=== PATIENT | female | born 1995 | race Caucasian/White ===

== ENCOUNTER 2018-03-06 06:30 | Day surgery (SDC) | payer OTHER, SELFPAY ==
--- NOTE | 2018-03-05 17:30 | PCM.HP.BLA ---
History and Physical Date of Admission: 03/06/18 HISTORY OF PRESENT ILLNESS 22 year old woman presents with post-traumatic bilateral earlobe scar contour deformity that developed after wearing ear gauges for the last couple of years. The size she used was 19 mm. After removing them earlier in the year, there has been a slight decrease in the deformity but it is still persistent. There is mild discomfort when she bumps them. She denies any fever. She is getting later next year and would like her bilateral earlobe scar contour deformity improved as much as possible. She presents at this time for further evaluation and treatment. PAST MEDICAL HISTORY Frequent headaches. PAST SURGICAL HISTORY None. MEDICATIONS Norgestimate-Ethinyl Estradiol [Sprintec 28 Day Tablet]. ALLERGIES None. FAMILY HISTORY Unknown. Negative for skin cancer. SOCIAL HISTORY Smoking Status: Current every day smoker. Alcohol intake: Occasional. REVIEW OF SYSTEMS General - Denies fever, fatigue, and weight loss. Eyes - Denies cataracts and glaucoma. ENT - Denies nasal congestion and sore throat. Endocrine - Denies excessive thirst and urination. Skin - Denies suspicious lesions and skin cancer. On her bilateral earlobes are post-traumatic scar contour deformities. Musculoskeletal - Denies joint pain, joint stiffness, weakness of muscles and joints, back pain, and arthritis. Neuro - Denies headaches. Cardiovascular - Denies chest pain, fatigue, and shortness of breath with exertion. Psych - Denies anxiety and depression. Respiratory - Denies chronic cough and shortness of breath. Patient is a smoker. Gastrointestinal - Denies nausea, vomiting, diarrhea, and constipation. Hematologic - Denies abnormal bruising and bleeding. Genitourinary - Denies hematuria and urinary frequency. PHYSICAL EXAMINATION General - Alert and Oriented HEENT - PERRL. EOMI. Throat is clear. On her bilateral ears, there are post-traumatic earlobe scar contour deformities. The earlobe opening measures 0.8 x 0.5 cm bilaterally. There is no evidence of infection. There is mild discomfort when she bumps them. Neck - Supple and nontender. No cervical adenopathy. Lungs - Clear to auscultation. Heart - Regular rate and rhythm. Abdomen - Soft and nondistended. Extremities - FROM. No axillary adenopathy. Radial pulses are palpable. Neuro - CN II-XII grossly intact. Psych - Normal mood and affect. ASSESSMENT 1. Post-traumatic bilateral earlobe scar contour deformity. 2. History of earlobe gauge use. 3. Smoker. PLAN Recommend excision and repair of her post-traumatic bilateral earlobe scar contour deformity. Due to the large size of the defects, I anticipate the use of skin flaps and/or skin grafts for reconstruction. If local skin flaps are inadequate and healing is suboptimal, then revision surgery would necessitate a two stage post-auricular flap procedure and cartilage graft from the ear in the conchal area for support. The cartilage graft would be placed in a subcutaneous tunnel. After healing has occurred in 6 weeks, would proceed with the second stage procedure which is division and inset of the flap. The medial side of the earlobe would be skin grafted. Due to its being a bilateral procedure, I would recommend general anesthesia on an outpatient basis. I would not re-slater the scar for 6 months to minimize possible keloid formation. Tissue that is excised would be sent to Pathology for analysis to rule out carcinoma. Patient was informed of the risks and complications of the procedure including alternatives to surgery. These were discussed with the patient personally. Patient voices understanding and wishes to proceed. Some of the risks and complications were included in a form from the [employer]. Encouraged patient to stop smoking as it may have deleterious effects on wound healing. Patient is aware that her insurance carrier may not cover this procedure. If that is the case, she would be financially responsible for the surgery. She voices understanding and wishes to proceed.
--- NOTE | 2018-03-06 | MISC_PTH ---
PATIENT: CHANTE MELENDREZ [place] [facility] [id number] AGE/SX: 22/F ROOM: RE03/06/[address]: Dr. Robin Jean MD : 1995 BED: DIS: 03/06/2018 SPEC #: [id number] RECD: 03/06/18 14:28 STATUS: CAIN REHannah #: [id number] CALVIN: 03/06/18 00:[address]: Robin Jean DEPT: SURGICAL PATHOLOGY RECD BY: Martell Leung ENTERED: 03/06/18 14:29 SP TYPE: [facility] [place] ANU DR: Dr. Darrell Neumann MD Tissues: A - Ear, NOS B - Ear, NOS Procedures: Surgery Specimen Level III HEADER OPERATION: Excision and repair post-traumatic scar contour deformity PRE-OP DIAGNOSIS: Post-traumatic bilateral earlobe scar contour deformity TISSUE SUBMITTED: A - Left earlobe, B - Right earlobe MICROSCOPIC DIAGNOSIS A. Left earlobe, repair post-traumatic scar contour deformity: A piece of skin with reactive changes. B. Right earlobe, repair post-traumatic scar contour deformity: A piece of skin with reactive changes. SHEILA:tabitha 03/07/18 MICROSCOPIC DESCRIPTION Slides are reviewed. GROSS DESCRIPTION A - Received in fixative is one container labeled with the patient's name and designated left earlobe. The specimen consists of a weeks-white skin piece measuring 3 x 0.2 x 0.1 cm. The entire specimen is submitted in one cassette. B - Received in fixative is one container labeled with the patient's name and designated right earlobe. The specimen consists of a strip of weeks-white skin measuring 2.5 x 0.2 x 0.2 cm. The entire specimen is submitted in one cassette. / SHEILA:tabitha 03/06/18 TC:5 CPT: 88527 x2
[2018-03-06 06:58] LABS: Internal QC Validated? YES +Cl - CLEAR BKGD; Pregnancy, Urine Negative Negative
[2018-03-06 07:00] VITALS: BP 112/72; PULSE 75; RESP 16; TEMP 37.4; O2SAT 98; BMI 23.5
[2018-03-06] MEDS: Mupirocin Ointment 22gm Tube 1 APPLIC (07:03)
--- NOTE | 2018-03-06 11:04 | PCM.IMDPSTOP ---
Immediate Post-Op Note Date of Procedure: 03/06/18 Primary Surgeon/Physician: Robin Jean nursing informatics clinical analyst: None Pre-Operative Diagnosis: 1. Post-traumatic bilateral earlobe scar contour deformity. 2. History of earlobe gauge use. 3. Smoker. Post-Operative Diagnosis: Same. Surgery/Procedure Performed:: 1. Excision and repair post-traumatic scar contour deformity right earlobe with anterior rhomboid transposition skin flap (2 cm2) and posterior rhomboid transposition skin flap reconstruction (2 cm2). 2. Excision and repair post-traumatic scar contour deformity left earlobe with posterior rhomboid transposition skin flap reconstruction (2 cm2). Description of Surgical Findings:: 22 year old woman presents with post-traumatic bilateral earlobe scar contour deformity that developed after wearing ear gauges for the last couple of years. The size she used was 19 mm. After removing them earlier in the year, there has been a slight decrease in the deformity but it is still persistent. There is mild discomfort when she bumps them. She denies any fever. She is getting later next year and would like her bilateral earlobe scar contour deformity improved as much as possible. Today the patient underwent excision and repair post-traumatic scar contour deformity right earlobe with anterior rhomboid transposition skin flap (2 cm2) and posterior rhomboid transposition skin flap reconstruction (2 cm2) and excision and repair post-traumatic scar contour deformity left earlobe with posterior rhomboid transposition skin flap reconstruction (2 cm2). Estimated Blood Loss: 10 ml. Specimen's removed: 1. Right earlobe tissue to Pathology. 2. Left earlobe tissue to Pathology. Drains: None. Type of Anesthesia:: General - Admit VTE Documentation VTE Present on Admission: No VTE Mechan Device Prophylaxis: SCD's VTE Pharm Prophylaxis ordered?: No
--- NOTE | 2018-03-06 11:07 | OP.PN_ITS ---
Immediate Post-Op Note Date of Procedure: 03/06/18 Primary Surgeon/Physician: Robin Jean vest baster: None Pre-Operative Diagnosis: 1. Post-traumatic bilateral earlobe scar contour deformity. 2. History of earlobe gauge use. 3. Smoker. Post-Operative Diagnosis: Same. Surgery/Procedure Performed:: 1. Excision and repair post-traumatic scar contour deformity right earlobe with anterior rhomboid transposition skin flap (2 cm2) and posterior rhomboid transposition skin flap reconstruction (2 cm2). 2. Excision and repair post-traumatic scar contour deformity left earlobe with posterior rhomboid transposition skin flap reconstruction (2 cm2). Description of Surgical Findings:: 22 year old woman presents with post-traumatic bilateral earlobe scar contour deformity that developed after wearing ear gauges for the last couple of years. The size she used was 19 mm. After removing them earlier in the year, there has been a slight decrease in the deformity but it is still persistent. There is mild discomfort when she bumps them. She denies any fever. She is getting later next year and would like her bilateral earlobe scar contour deformity improved as much as possible. Today the patient underwent excision and repair post-traumatic scar contour deformity right earlobe with anterior rhomboid transposition skin flap (2 cm2) and posterior rhomboid transposition skin flap reconstruction (2 cm2) and excision and repair post-traumatic scar contour deformity left earlobe with posterior rhomboid transposition skin flap reconstruction (2 cm2). Estimated Blood Loss: 10 ml. Specimen's removed: 1. Right earlobe tissue to Pathology. 2. Left earlobe tissue to Pathology. Drains: None. Type of Anesthesia:: General - Admit VTE Documentation VTE Present on Admission: No VTE Mechan Device Prophylaxis: SCD's VTE Pharm Prophylaxis ordered?: No
[2018-03-06 11:10] VITALS: BP 112/72; BP 122/64; PULSE 114; RESP 16; TEMP 36.7; O2SAT 97
[2018-03-06 11:15] VITALS: BP 112/72; BP 121/61; PULSE 98; RESP 16; O2SAT 97
--- NOTE | 2018-03-06 11:15 | DCINST_ITS ---
You will use the following diet at home:: No restrictions Discharge Activity: May not drive while taking narcotic pain medications., May Shower - in two days., - - keep head elevated. no heavy lifting. May shower in (days): 2 May resume sexual activity in: 10-14 days Weight Bearing Status: Weight bearing as tolerated Lifting Restrictions: 10 lbs. Keep extremity elevated above heart level: - - elevate head. Call your doctor if your incision/area has: Continuous Slow Oozing, Sudden Increased Bleeding, Increased Pain/ Swelling, Increased Redness, Foul Smelling Discharge, Swelling at the incision site Call your doctor if you observe: Fever of 101 or Higher, Coldness, Increased Pain, Shortness of breath, Calf discomfort, Uncontrolled pain Suture Line Care: - - apply antibiotic ointment to suture line daily. Cleanse incision/area with: - - may get incisions wet in the shower in two days. Allergies/Adverse Reactions: Allergies No Known Allergies Allergy (Verified 02/26/18 09:03) Medications to take at Discharge Norgestimate-Ethinyl Estradiol [Sprintec 28 Day Tablet] 1 each PO DAILY 09/27/15 Clindamycin [Cleocin] 300 mg PO TID #30 cap 03/06/18 Oxycodone HCl/Acetaminophen [Percocet 5/325] 1 - 2 tab PO 4X/DAY PRN PRN 5 Days #40 tab 03/06/18 The following prescriptions were given: Oxycodone HCl/Acetaminophen [Percocet 5/325] 1 - 2 tab PO 4X/DAY PRN PRN 5 Days #40 tab PRN Reason: Pain Clindamycin [Cleocin] 300 mg PO TID #30 cap Primary Care Physician: Darrell Neumann MD [Primary Care Provider] - Test Results: Test results from this visit will be discussed in further detail at your follow- up appointment, if applicable. Please Follow Up With: Robin Jean MD When: one week. call [phone] for appt. Proposed Discharge Date: 03/06/18
[2018-03-06 11:30] VITALS: BP 112/64; BP 112/72; PULSE 94; RESP 16; O2SAT 98
[2018-03-06 11:43] VITALS: BP 106/67; BP 112/72; PULSE 94; RESP 16; TEMP 36.9; O2SAT 97
[2018-03-06 12:31] VITALS: BP 108/60; BP 112/72; PULSE 76; RESP 16; TEMP 37.8; O2SAT 97
--- NOTE | 2018-03-06 18:55 | PCM.OPRPT ---
Report of Operation Date of Procedure: 03/06/18 Pre-Operative Diagnosis: 1. Post-traumatic bilateral earlobe scar contour deformity. 2. History of earlobe gauge use. 3. Smoker. Post-Operative Diagnosis: Same. Surgery/Procedure Performed:: 1. Excision and repair post-traumatic scar contour deformity right earlobe with anterior rhomboid transposition skin flap (2 cm2) and posterior rhomboid transposition skin flap reconstruction (2 cm2). 2. Excision and repair post-traumatic scar contour deformity left earlobe with posterior rhomboid transposition skin flap reconstruction (2 cm2). Description of Surgical Findings:: 22 year old woman presents with post-traumatic bilateral earlobe scar contour deformity that developed after wearing ear gauges for the last couple of years. The size she used was 19 mm. After removing them earlier in the year, there has been a slight decrease in the deformity but it is still persistent. There is mild discomfort when she bumps them. She denies any fever. She is getting later next year and would like her bilateral earlobe scar contour deformity improved as much as possible. Patient was informed of the risks and complications of the procedure including alternatives to surgery. These were discussed with the patient personally. Patient voices understanding and wishes to proceed. Some of the risks and complications were included in a form from the [employer]. vegetable inspector: None Type of Anesthesia:: General Specimen's removed: 1. Right earlobe tissue to Pathology. 2. Left earlobe tissue to Pathology. Drains: None. Estimated Blood Loss (mL): 10 ml. Description of Procedure: Patient was taken to OR in supine position and was placed under general anesthesia. The ears were prepped and draped in the usual fashion separately. SCD's were placed for DVT prophylaxis. Perioperative antibiotics were given intravenously. I worked on the left ear first. Using xylocaine with epinephrine, the periauricular area was infiltrated for postop pain relief. I excised the circular scar contour deformity into the subcutaneous tissue. The tissue was sent to Pathology for analysis. This created an anterior and a posterior wound. Enough laxity was present anteriorly that I was able to close the anterior defect primarily. Good earlobe contour was noted anteriorly. A 5-0 Monocryl suture was used for the deep dermis and subcutaneous tissue. The skin was approximated with 5-0 Monocryl simple interrupted and vertical mattress interrupted sutures. I then addressed the posterior defect. When I attempted to close the posterior defect as well primarily, there was noticeable deformity. I then designed a rhomboid flap superior to the defect in order to bring in tissue to the defect to minimize the deformity. Incisions were made and the rhomboid flap was elevated on a subcutaneous pedicle and easily transposed into the posterior defect with minimal tension and minimal distortion. Hemostasis was obtained with electrocautery. I then closed the posterior wound after transposing the rhomboid flap into the defect with 5-0 Monocryl interrupted sutures. Good earlobe contour was noted after the flap was inset. The size of the defect and the size of the flap needed to close the defect was 2 cm2. A dry gauze was placed on the left earlobe for compression for the rest of the procedure since her head will be turned in the opposite direction to work on the right ear. The right ear was then prepped and draped in the usual fashion. Using xylocaine with epinephrine, the periauricular area was infiltrated for postop pain relief. I excised the circular scar contour deformity into the subcutaneous tissue. The tissue was sent to Pathology for analysis. This created an anterior and a posterior wound. Enough laxity was present anteriorly that I was able to close the anterior defect primarily. Good earlobe contour was noted anteriorly. A 5-0 Monocryl suture was used for the deep dermis and subcutaneous tissue. The skin was approximated with 5-0 Monocryl simple interrupted and vertical mattress interrupted sutures. I then addressed the posterior defect. When I attempted to close the posterior defect as well primarily, there was noticeable deformity. I then designed a rhomboid flap superior to the defect in order to bring in tissue to the defect to minimize the deformity. Incisions were made and the rhomboid flap was elevated on a subcutaneous pedicle and easily transposed into the posterior defect with minimal tension and minimal distortion. Hemostasis was obtained with electrocautery. I then closed the posterior wound after transposing the rhomboid flap into the defect with 5-0 Monocryl interrupted sutures. After the inset of the rhomboid flap posteriorly, there was a noticeable earlobe deformity with a boxy appearance. Even though the anterior wound closure initially didn't show any earlobe deformity, after closing the posterior wound defect, this boxy deformity became apparent. Therefore I removed the sutures from the anterior wound and felt another flap would be necessary to bring in tissue to the defect to minimize the deformity. I then designed an anterior rhomboid flap superior to the defect in order to bring in tissue to the defect to minimize the deformity. Incisions were made and the rhomboid flap was elevated on a subcutaneous pedicle and easily transposed into the anterior defect with minimal tension and minimal distortion. Hemostasis was obtained with electrocautery. I then closed the anterior wound after transposing the rhomboid flap into the defect with 5-0 Monocryl interrupted sutures. Good earlobe contour was noted after the flap was inset. The size of the defects and the size of the flaps needed to close the anterior and posterior defects were 2 cm2 each. I then placed her head in the neutral position and looked at both earlobes. Good earlobe contour was noted bilaterally. No hematomas were noted. No vascular compromise was noted on the skin flaps. Antibiotic ointment was applied to both earlobe incisions. Initially no dressing was placed. However while transferring her to the PACU cart, she was moving her head from side to side and smearing the antibiotic ointment. Therefore in the PACU, I reapplied antibiotic ointment to the incisions and placed a gauze dressing on the ears. Patient tolerated the procedure well and was sent to PACU in satisfactory condition. Patient will be sent home on antibiotics and pain medication. She will keep her head elevated during the initial postop period. She will be instructed not to slater the healing scars for 6 months. Patient will followup in a week for a wound check and for discussion of the pathology report. Grafts/Implants Used: None. - Complications None. - Admit VTE Documentation VTE Present on Admission: No VTE Mechan Device Prophylaxis: SCD's VTE Pharm Prophylaxis ordered?: No Code Visit Surgery Charges CPT - 62695 ICD-10 - T75.89xS, S01.90xS, F17.200 79188 T75.89xS, S01.90xS, F17.200 90322 T75.89xS, S01.90xS, F17.200 21102-18 T75.89xS, S01.90xS, F17.200 42830-40 T75.89xS, S01.90xS, F17.200
--- NOTE | 2018-03-07 17:55 | OP.PCM_ITS ---
Report of Operation Date of Procedure: 03/06/18 Pre-Operative Diagnosis: 1. Post-traumatic bilateral earlobe scar contour deformity. 2. History of earlobe gauge use. 3. Smoker. Post-Operative Diagnosis: Same. Surgery/Procedure Performed:: 1. Excision and repair post-traumatic scar contour deformity right earlobe with anterior rhomboid transposition skin flap (2 cm2) and posterior rhomboid transposition skin flap reconstruction (2 cm2). 2. Excision and repair post-traumatic scar contour deformity left earlobe with posterior rhomboid transposition skin flap reconstruction (2 cm2). Description of Surgical Findings:: 22 year old woman presents with post-traumatic bilateral earlobe scar contour deformity that developed after wearing ear gauges for the last couple of years. The size she used was 19 mm. After removing them earlier in the year, there has been a slight decrease in the deformity but it is still persistent. There is mild discomfort when she bumps them. She denies any fever. She is getting later next year and would like her bilateral earlobe scar contour deformity improved as much as possible. Patient was informed of the risks and complications of the procedure including alternatives to surgery. These were discussed with the patient personally. Patient voices understanding and wishes to proceed. Some of the risks and complications were included in a form from the [employer]. milk pasteurizer: None Type of Anesthesia:: General Specimen's removed: 1. Right earlobe tissue to Pathology. 2. Left earlobe tissue to Pathology. Drains: None. Estimated Blood Loss (mL): 10 ml. Description of Procedure: Patient was taken to OR in supine position and was placed under general anesthesia. The ears were prepped and draped in the usual fashion separately. SCD's were placed for DVT prophylaxis. Perioperative antibiotics were given intravenously. I worked on the left ear first. Using xylocaine with epinephrine, the periauricular area was infiltrated for postop pain relief. I excised the circular scar contour deformity into the subcutaneous tissue. The tissue was sent to Pathology for analysis. This created an anterior and a posterior wound. Enough laxity was present anteriorly that I was able to close the anterior defect primarily. Good earlobe contour was noted anteriorly. A 5- 0 Monocryl suture was used for the deep dermis and subcutaneous tissue. The skin was approximated with 5-0 Monocryl simple interrupted and vertical mattress interrupted sutures. I then addressed the posterior defect. When I attempted to close the posterior defect as well primarily, there was noticeable deformity. I then designed a rhomboid flap superior to the defect in order to bring in tissue to the defect to minimize the deformity. Incisions were made and the rhomboid flap was elevated on a subcutaneous pedicle and easily transposed into the posterior defect with minimal tension and minimal distortion. Hemostasis was obtained with electrocautery. I then closed the posterior wound after transposing the rhomboid flap into the defect with 5-0 Monocryl interrupted sutures. Good earlobe contour was noted after the flap was inset. The size of the defect and the size of the flap needed to close the defect was 2 cm2. A dry gauze was placed on the left earlobe for compression for the rest of the procedure since her head will be turned in the opposite direction to work on the right ear. The right ear was then prepped and draped in the usual fashion. Using xylocaine with epinephrine, the periauricular area was infiltrated for postop pain relief. I excised the circular scar contour deformity into the subcutaneous tissue. The tissue was sent to Pathology for analysis. This created an anterior and a posterior wound. Enough laxity was present anteriorly that I was able to close the anterior defect primarily. Good earlobe contour was noted anteriorly. A 5-0 Monocryl suture was used for the deep dermis and subcutaneous tissue. The skin was approximated with 5-0 Monocryl simple interrupted and vertical mattress interrupted sutures. I then addressed the posterior defect. When I attempted to close the posterior defect as well primarily, there was noticeable deformity. I then designed a rhomboid flap superior to the defect in order to bring in tissue to the defect to minimize the deformity. Incisions were made and the rhomboid flap was elevated on a subcutaneous pedicle and easily transposed into the posterior defect with minimal tension and minimal distortion. Hemostasis was obtained with electrocautery. I then closed the posterior wound after transposing the rhomboid flap into the defect with 5-0 Monocryl interrupted sutures. After the inset of the rhomboid flap posteriorly, there was a noticeable earlobe deformity with a boxy appearance. Even though the anterior wound closure initially didn't show any earlobe deformity, after closing the posterior wound defect, this boxy deformity became apparent. Therefore I removed the sutures from the anterior wound and felt another flap would be necessary to bring in tissue to the defect to minimize the deformity. I then designed an anterior rhomboid flap superior to the defect in order to bring in tissue to the defect to minimize the deformity. Incisions were made and the rhomboid flap was elevated on a subcutaneous pedicle and easily transposed into the anterior defect with minimal tension and minimal distortion. Hemostasis was obtained with electrocautery. I then closed the anterior wound after transposing the rhomboid flap into the defect with 5-0 Monocryl interrupted sutures. Good earlobe contour was noted after the flap was inset. The size of the defects and the size of the flaps needed to close the anterior and posterior defects were 2 cm2 each. I then placed her head in the neutral position and looked at both earlobes. Good earlobe contour was noted bilaterally. No hematomas were noted. No vascular compromise was noted on the skin flaps. Antibiotic ointment was applied to both earlobe incisions. Initially no dressing was placed. However while transferring her to the PACU cart, she was moving her head from side to side and smearing the antibiotic ointment. Therefore in the PACU, I reapplied antibiotic ointment to the incisions and placed a gauze dressing on the ears. Patient tolerated the procedure well and was sent to PACU in satisfactory condition. Patient will be sent home on antibiotics and pain medication. She will keep her head elevated during the initial postop period. She will be instructed not to slater the healing scars for 6 months. Patient will followup in a week for a wound check and for discussion of the pathology report. Grafts/Implants Used: None. - Complications None. - Admit VTE Documentation VTE Present on Admission: No VTE Mechan Device Prophylaxis: SCD's VTE Pharm Prophylaxis ordered?: No Code Visit Surgery Charges CPT - 85862 ICD-10 - T75.89xS, S01.90xS, F17.200 44383 T75.89xS, S01.90xS, F17.200 56326 T75.89xS, S01.90xS, F17.200 90098-74 T75.89xS, S01.90xS, F17.200 16330-72 T75.89xS, S01.90xS, F17.200
== END 2018-03-06 12:35 | disposition home or self-care (01) ==
LOC: SDC 06:31 → AC 06:32
PROVIDERS: Anesthesiology; Family Provider Family Medicine; PCP Family Medicine; Referring Provider Surgery; Visit Provider Surgery
PROC: (CPT 14060; principal; 2018-03-06 07:45)
DX: H61.113 Acquired deformity of pinna, bilateral (principal); F17.200 Nicotine dependence, unspecified, uncomplicated
CPT/HCPCS: 14060; 81025; 88304; 88305; J7120; J2405

== ENCOUNTER → 2020-04-18 16:53 | Outpatient (CLI) | payer OTHER, SELFPAY ==
[2018-04-09 09:20] VITALS: BMI 23.5
[2020-04-18 18:20] LABS: Hematocrit 42.6 % (37-47); Hemoglobin 14.8 g/dL (12.0-15.0); Mean Corp Hgb Conc 34.7 g/dL (32-36); Mean Corpuscular Hgb 31.4 pg (27.0-32.0); Mean Corpuscular Volume 90.4 fL (81-99); Mean Platelet Vol. 9.9 fl (6.2-12.0); Platelet Count 315 K/mm3 (150-450); RBC Distribution Width SD 39.8 fl (35.1-43.9); Red Blood Count 4.71 M/mm3 (4.2-5.4)
[2020-04-18 18:29] LABS: D-Dimer Quantitative (DVT/PE) 0.32 FEU/ug/m (0.27-0.49)
[2020-04-18 18:43] LABS: Anion Gap 6 (5-15); BUN 11 mg/dL (7-18); BUN/Creat Ratio 13.3 RATIO (10-20); Calcium,Total 9.2 mg/dL (8.5-10.1); Chloride 108 mmol/L (98-107); Creatinine, Serum 0.83 mg/dL (0.55-1.02); EST Glomerular Filtration Rate 89 mL/min (>60); Est Glom Filt Rate - Afr Amer 108 mL/min (>60); Glucose 77 mg/dL (74-106); Potassium 3.3 mmol/L (3.5-5.1); Sodium Level 142 mmol/L (136-145)
== END ==
PROVIDERS: PCP Family Medicine; Visit Provider Nurse Practitioner Family
DX: R07.9 Chest pain, unspecified (principal)
CPT/HCPCS: 36415; 80048; 85027; 85379

== ENCOUNTER 2022-04-11 16:55 | Outpatient (CLI) | payer BC, SELFPAY ==
[2022-04-11 17:54] LABS: Absolute Lymphocyte Count 2.31 X10^3/uL (0.83-4.51); Absolute Neutrophil Count 3.4 X10^3/uL (2.0-7.7); Basophil# 0.06 X10^3/uL; Basophil% 0.9 % (0-1); Eosinophil# 0.09 X10^3/uL; Eosinophils% 1.4 % (0-5); Hemoglobin 13.5 g/dL (12.0-15.0); Lymphocyte # 2.31 X10^3/ul (0.83-4.51); Lymphocyte % 36.4 % (19-41); Mean Corp Hgb Conc 33.8 g/dL (32-36); Mean Corpuscular Hgb 32.1 pg (27.0-32.0); Mean Platelet Vol. 9.6 fl (6.2-12.0); Monocyte# 0.46 X10^3/uL; Monocyte% 7.2 % (0-10); NRBC Flagged by Analyzer 0 % (0-5); Neutrophil # 3.41 X10^3/uL (2.7-7.7); Neutrophil % 53.8 % (47-70); Platelet Count 295 K/mm3 (150-450); RBC Distribution Width CV 11.9 % (11.6-14.6); RBC Distribution Width SD 41.8 fl (35.1-43.9); Red Blood Count 4.21 M/mm3 (4.2-5.4); White Blood Count 6.4 K/mm3 (4.4-11.0)
[2022-04-11 18:46] LABS: ALB/GLOB Ratio 1.2 RATIO (0.9-2.4); AST(SGOT) 10 U/L (15-37); Alanine Aminotransfer ALT/SGPT 15 U/L (13-56); Albumin, Serum 3.7 g/dL (3.2-5.0); Alkaline Phosphatase 51 U/L (45-117); Anion Gap 5 (5-15); BUN 10 mg/dL (7-18); BUN/Creat Ratio 15.1 RATIO (10-20); Chloride 108 mmol/L (98-107); Creatinine, Serum 0.66 mg/dL (0.55-1.02); EST Glomerular Filtration Rate 113 mL/min (>60); Est Glom Filt Rate - Afr Amer 137 mL/min (>60); Globulin 3.2 g/dL (2.2-4.2); Glucose 87 mg/dL (74-106); Protein, Total 6.9 g/dL (6.4-8.2); Sodium Level 139 mmol/L (136-145); Thyroid Stim Hormone (TSH) 0.67 uIU/mL (0.358-3.74)
== END 2022-04-11 23:59 | disposition home or self-care (01) ==
LOC: MFPLAB 16:59
PROVIDERS: PCP Nurse Practitioner Family; Visit Provider Nurse Practitioner Family
DX: R63.4 Abnormal weight loss (principal)
CPT/HCPCS: 36415; 80053; 84443; 85025

== ENCOUNTER 2022-09-24 08:41 | Emergency (ER) | payer BC, SELFPAY ==
[2022-09-24 08:41] VITALS: BP 133/91; PULSE 65; RESP 22; TEMP 35.7; O2SAT 99; BMI 23.3
--- NOTE | 2022-09-24 08:53 | NURSING ---
NO OLD EKG
--- NOTE | 2022-09-24 08:57 | EX.ED.DYSGE1 ---
HPI History of Present Illness Chief Complaint: Dizziness Informant: patient Onset/Context/Timing Onset: Today Context: Gradual Onset Timing: Intermittent Current Severity: Gone Maximum Severity: Mild Narrative Narrative: 26-year-old female with anxiety. An episode today where she felt lightheaded and dizzy. Denies any headache or chest pain. She did not pass out. She has not eaten since 8:00 last night. After she started having the symptoms she had an Oreo cookie granola bar and had something to drink. Really did not change her symptoms. She had a prior episode a week ago. Was not evaluated for this before. Last menstrual period was about a week ago. She denies any nausea, vomiting, diarrhea or fever. No chest pain or abdominal pain. No melena. Currently is feeling improved. Prior similar symptoms: Yes Recent Illness/Hospitalization: No PFSH PFSH Medical History Abdominal pain Abnormal weight loss Allergic rhinitis Anxiety and depression Chest pain Fatigue Frequent headaches Headache Hypokalemia Paresthesia Rectal bleeding Home Medications NK 09/24/22 [History Last Taken Unknown] Allergy/AdvReac Type Severity Reaction Status Date / Time No Known Allergies Allergy Verified 04/18/22 09:21 Family History Unknown No problems noted. Father Hypertension Social History Smoking Status: Current every day smoker tobacco type: e-cigarettes ROS ROS ED ROS Narrative Denies recent illness. Review of Systems ROS Unobtainable: Denies due to encephalopathy Constitutional Constitutional ED: Denies chills or fever(s) Eyes Eyes: Denies blurry vision ENT ENT ED: Denies ear pain Cardiovascular Cardiovascular: Denies chest pain Respiratory/Chest Respiratory/Chest: Denies cough Gastrointestinal Gastrointestinal: Denies abdominal pain Musculoskeletal Musculoskeletal: Denies arthralgias Integumentary Denies abscess Neurologic Neurologic: Denies headache(s) Psychiatric Psychiatric: Denies anxiety Endocrine Endocrinology: Denies cold intolerance Hematologic/Lymphatic Hematologic/Lymphatic: Reports none Allergic/Immunologic Allergic/Immunologic ED: Denies mouth swelling or tongue swelling EXAM Physical Exam Narrative Exam Narrative: 26-year-old female sitting upright in bed. Mom present in room. Vital signs stable afebrile. Pulse ox 99% room air no hypoxia. She does not seem septic toxic or in any distress currently. H EENT exam unremarkable. Pupils round reactive light his motions are intact. No facial droop. TMs normal. Normal speech. Neck nontender no lymphadenopathy. Lungs clear to auscultation. Heart regular rhythm rate about 70 no murmur. Normal sinus rhythm on the monitor. Abdomen soft nontender normal bowel sounds no peritoneal signs. Moving all 4 extremities. Nontender no edema. Normal 5 out of 5 staker surveying strength. Dorsi plantarflexion intact. Back exam unremarkable. Skin normal several tattoos. No rashes. Neurologically she is awake and alert. No focal motor or sensory deficits. Normal staker surveying strength. Normal dorsi plantarflexion. No drift. Fingertip to nose within normal limits. [id number] within normal limits. NIH 0. Patient has a completely normal exam. Currently symptom-free. Const Vital Signs: 09/24/22 08:41 09/24/22 08:50 Temperature 96.3 F L Temperature Source Temporal Pulse Rate 65 Respiratory Rate 22 H Respiratory Effort Normal Non-Labored Respiratory Pattern Normal Blood Pressure 133/91 H Blood Pressure Mean 105 Pulse Ox 99 Oxygen Delivery Method Room Air Positive well nourished and well developed; Negative for obese, cachectic, contractures or unkempt General Appearance ED: well developed and NAD; Negative for unkempt, cachectic, contractures, cyanotic, diaphoretic or pallor Nutritional Appearance: Negative for cachectic or obese HEENT Reports TM's clear and moist mucous membranes; Denies dry mucous membranes Negative for trauma or tenderness Tympanic Membrane ED: Yes TM's clear Mouth ED: No dry mucous membranes Mouth: No dry mucous membranes Eyes PERRL and EOMs intact bilaterally General Eye ED: Negative for pale conjunctiva, scleral icterus or other Neck no lymphadenopathy, supple and no JVD General: Negative for tenderness Lymph Lymphatic: Negative for other Chest Wall inspection of chest normal and palpation of chest normal Chest: Negative for other Resp normal respiratory effort and clear to auscultation bilaterally Effort and Inspection: Negative for retractions Auscultation: Negative for rales, rhonchi or wheezes Cardio regular rate, regular rhythm, S1 normal heart sound, S2 normal heart sound and no murmurs Rhythm: Negative for abnormal rhythm GI normal to inspection, nondistended, normoactive bowel sounds, non-tender, non-distended and no masses Inspection: Negative for abdominal distention Auscultation: normoactive bowel sounds Palpation: soft; Negative for tender or guarding Back/Spine no CVA tenderness General Back: Negative for CVA tenderness Cervical Spine: Negative for cervical spine tenderness Thoracic Spine / Upper Back: Negative for thoracic spinal tenderness Lumbar Spine / Lower Back: Negative for lumbar spinal tenderness Extremity normal to inspection General Extremety ED: Negative for edema or tenderness General Extremity: Negative for edema Neuro oriented x3, CN's II-XII intact bilaterally and no sensory deficits noted Sensorium / Orientation: alert; Negative for orientation impaired, lethargic or stuporous Sensory Exam: No sensory level loss detected Motor Exam: strength 5/5 throughout Psych mental status grossly normal Appearance: Negative for unkempt Attitude: No agitated Mood & Affect: Negative for depressed, anxious or tearful Skin no rashes or lesions noted, no wounds and skin turgor normal General Skin Exam: elasticity normal; Negative for jaundice or pallor Lesions: No lesion noted Rashes: No rashes noted Trauma: Negative for abrasion Wounds: Negative for wounds noted MDM MDM MDM Narrative Medical decision making narrative: 26-year-old female with an episode where she felt dizzy. Symptoms have resolved. Currently she is a comp repeat exam at 9:40 AM patient doing well. Patient has a normal exam and is symptom-free. She had not eaten since 8:00 last night but has now eaten since the symptoms started. I will check screening labs. She has a completely normal neurologic exam. She has not been having headaches. I do not think she needs imaging. Repeat exam at 9:40 AM patient doing well. Exam normal and unchanged. We went over her test results. She will be discharged to home. Lab Data Attestation: I reviewed the patient's lab results. Lab results narrative: CBC normal. White count of 5. H&H of 14 and 41. Platelets 257. Chemistries unremarkable gap of 6. Normal BUN and creatinine 11 and 0.8. Glucose 81. Labs: Laboratory Results - last 24 hr 09/24/22 09/24/22 09/24/22 09:00 09:00 09:03 WBC 5.2 RBC 4.54 Hgb 14.5 Hct 41.8 MCV 92.1 MCH 31.9 MCHC 34.7 RDW Std Deviation 39.8 RDW Coeff of Kwasi 11.8 Plt Count 257 MPV 9.3 Immature Gran % (Auto) 0.400 Neut % (Auto) 62.4 Lymph % (Auto) 28.8 [place] % (Auto) 6.6 Eos % (Auto) 1.0 Baso % (Auto) 0.8 Absolute Neuts (auto) 3.2 Absolute Lymphs (auto) 1.49 Nucleated RBC % 0 Sodium 140 Potassium 4.1 Chloride 110 H Carbon Dioxide 24.0 Anion Gap 6 BUN 11 Creatinine 0.83 Estim Creat Clear Calc 91.61 Est GFR (MDRD) Af Amer 105 Est GFR (MDRD) Non-Af 87 BUN/Creatinine Ratio 13.2 Glucose 81 Calcium 9.4 POC Glucose 91 Discharge Plan Triage Chief Complaint: Dizziness ED Provider: Reji Gardner Dx/Rx/DC Orders Clinical Impression: Dizziness Instructions: ED Dizziness, Uncertain Cause Prescriptions: No Action NK Primary Care Provider: Brisa Hodge Referrals: Nadeen Love [facility]ACH[facility] [employer]OOKKEEPER-[facility] [Non-Staff -Ordering Privileges] - 3-5 Days Activity Restrictions/Additional Instructions: Your exam and labs were all unremarkable. Normal blood sugar. Follow-up with your primary care provider or return if feeling worse. Disposition Disposition: Home, Self Care
[2022-09-24 09:18] LABS: Absolute Lymphocyte Count 1.49 X10^3/uL (0.83-4.51); Absolute Neutrophil Count 3.2 X10^3/uL (2.0-7.7); Basophil# 0.04 X10^3/uL; Basophil% 0.8 % (0-1); Eosinophil# 0.05 X10^3/uL; Hematocrit 41.8 % (37-47); Hemoglobin 14.5 g/dL (12.0-15.0); Lymphocyte # 1.49 X10^3/ul (0.83-4.51); Lymphocyte % 28.8 % (19-41); Mean Corp Hgb Conc 34.7 g/dL (32-36); Mean Corpuscular Hgb 31.9 pg (27.0-32.0); Mean Corpuscular Volume 92.1 fL (81-99); Mean Platelet Vol. 9.3 fl (6.2-12.0); Monocyte# 0.34 X10^3/uL; Monocyte% 6.6 % (0-10); NRBC Flagged by Analyzer 0 % (0-5); Neutrophil # 3.24 X10^3/uL (2.7-7.7); Neutrophil % 62.4 % (47-70); Platelet Count 257 K/mm3 (150-450); RBC Distribution Width CV 11.8 % (11.6-14.6); RBC Distribution Width SD 39.8 fl (35.1-43.9); Red Blood Count 4.54 M/mm3 (4.2-5.4); White Blood Count 5.2 K/mm3 (4.4-11.0)
[2022-09-24 09:21] LABS: Bedside Glucose 91 mg/dL (74-106)
[2022-09-24 09:33] LABS: Anion Gap 6 (5-15); BUN 11 mg/dL (7-18); BUN/Creat Ratio 13.2 RATIO (10-20); Calcium,Total 9.4 mg/dL (8.5-10.1); Chloride 110 mmol/L (98-107); Creatinine, Serum 0.83 mg/dL (0.55-1.02); EST Glomerular Filtration Rate 87 mL/min (>60); Est Glom Filt Rate - Afr Amer 105 mL/min (>60); Estimated Creatinine Clearance 91.61 ml/min; Glucose 81 mg/dL (74-106); Potassium 4.1 mmol/L (3.5-5.1); Sodium Level 140 mmol/L (136-145)
[2022-09-24 17:08] LABS: Thyroid Stim Hormone (TSH) 0.74 uIU/mL (0.358-3.74)
[2022-09-24 17:11] LABS: Vitamin B12 269 pg/mL (211-911)
== END 2022-09-24 10:11 | disposition home or self-care (01) ==
PROVIDERS: Nurse Practitioner Family; Emergency Provider Emergency Medicine; PCP Family Medicine; Visit Provider Emergency Medicine
DX: R42 Dizziness and giddiness (principal); F17.290 Nicotine dependence, other tobacco product, uncomplicated
CPT/HCPCS: 80048; 82306; 82607; 82962; 84443; 85025; 99284; J7030; A4216

== ENCOUNTER → 2022-10-29 | Outpatient (CLI) | payer BC, SELFPAY ==
[2022-10-29 10:15] LABS: Absolute Lymphocyte Count 1.73 X10^3/uL (0.83-4.51); Absolute Neutrophil Count 3.2 X10^3/uL (2.0-7.7); Basophil# 0.05 X10^3/uL; Basophil% 0.9 % (0-1); Eosinophil# 0.11 X10^3/uL; Hematocrit 40.6 % (37-47); Hemoglobin 13.6 g/dL (12.0-15.0); Lymphocyte # 1.73 X10^3/ul (0.83-4.51); Lymphocyte % 31.5 % (19-41); Mean Corp Hgb Conc 33.5 g/dL (32-36); Mean Corpuscular Hgb 31.6 pg (27.0-32.0); Mean Corpuscular Volume 94.2 fL (81-99); Mean Platelet Vol. 9.9 fl (6.2-12.0); Monocyte# 0.37 X10^3/uL; Monocyte% 6.7 % (0-10); NRBC Flagged by Analyzer 0 % (0-5); Neutrophil # 3.23 X10^3/uL (2.7-7.7); Neutrophil % 58.7 % (47-70); Platelet Count 240 K/mm3 (150-450); RBC Distribution Width CV 12.1 % (11.6-14.6); Red Blood Count 4.31 M/mm3 (4.2-5.4); White Blood Count 5.5 K/mm3 (4.4-11.0)
== END | disposition home or self-care (01) ==
LOC: MTLAB 07:14
PROVIDERS: PCP Family Medicine; Referring Provider Family Medicine; Visit Provider Family Medicine
DX: R42 Dizziness and giddiness (principal)
CPT/HCPCS: 36415; 82533; 85025

== ENCOUNTER → 2023-06-21 | Outpatient (CLI) | payer BC, SELFPAY ==
--- NOTE | 2023-06-21 17:53 | CT_ITS ---
STUDY: CT ABDOMEN AND PELVIS WITH CONTRAST REASON FOR EXAM: Female, 27 years old. RLQ PAIN X 1 WEEK RADIATION DOSAGE (If Supplied By Facility): CTDIvol = ( 10.29 ) mGy, DLP = ( 552.58 ) mGycm TECHNIQUE: Transaxial images were obtained from the dome of the diaphragm to the symphysis pubis without oral contrast. Oral and amp; IV Gastrografin and amp; 100mL Isovue-370 was administered. Sagittal and coronal images were reconstructed. Individualized dose optimization techniques were used for this CT. COMPARISON: None. FINDINGS: The visualized lung bases are unremarkable. The visualized portions of the heart are within normal limits. Normal liver. Normal gallbladder and extrahepatic biliary system. Normal spleen. Normal pancreas. Normal bilateral adrenal glands. Normal right kidney. Normal left kidney. Normal visualized stomach. Normal small intestine. Normal colon. The appendix is retrocecal in location and does not fill with contrast. There is no appreciable thickening of the wall however there is very subtle haziness in the periappendiceal fat and mild acute sinusitis is not excluded. Clinical correlation is recommended Normal abdominal aorta. Normal inferior vena cava. Normal retroperitoneum. Normal urinary bladder. Mild cystic changes in the right ovary not atypical for age. This may be further assessed with pelvic sonography if indicated. Normal abdominal wall. Normal osseous structures. CT/Abdomen/Pelvis WITH Contrast IMPRESSION: Nonfilling of the retrocecal appendix which demonstrate very subtle hazy appearance in the periappendiceal fat possibly representing mild acute appendicitis. Clinical correlation recommended Electronically Signed: Kaveh Natarajan MD at 19:30 EDT ,
== END | disposition home or self-care (01) ==
PROVIDERS: PCP Family Medicine; Referring Provider Family Medicine; Visit Provider Family Medicine
DX: R10.31 Right lower quadrant pain (principal)
CPT/HCPCS: 74177; Q9967

== ENCOUNTER → 2024-05-29 | Outpatient (CLI) | payer BC, SELFPAY ==
[2024-05-29 15:38] LABS: Absolute Lymphocyte Count 1.68 X10^3/uL (0.83-4.51); Absolute Neutrophil Count 4.9 X10^3/uL (2.0-7.7); Basophil# 0.07 X10^3/uL; Eosinophil# 0.05 X10^3/uL; Eosinophils% 0.7 % (0-5); Hematocrit 41.2 % (37-47); Lymphocyte # 1.68 X10^3/ul (0.83-4.51); Lymphocyte % 23.6 % (19-41); Mean Corpuscular Hgb 32.8 pg (27.0-32.0); Mean Corpuscular Volume 96.5 fL (81-99); Mean Platelet Vol. 9.9 fl (6.2-12.0); Monocyte% 5.6 % (0-10); NRBC Flagged by Analyzer 0 % (0-5); Neutrophil # 4.89 X10^3/uL (2.7-7.7); Neutrophil % 68.8 % (47-70); Platelet Count 303 K/mm3 (150-450); RBC Distribution Width CV 12.3 % (11.6-14.6); RBC Distribution Width SD 43.5 fl (35.1-43.9); Red Blood Count 4.27 M/mm3 (4.2-5.4); White Blood Count 7.1 K/mm3 (4.4-11.0)
[2024-05-29 16:05] LABS: ALB/GLOB Ratio 1.6 RATIO (0.9-2.4); AST(SGOT) 21 U/L (<=31); Alanine Aminotransfer ALT/SGPT 18 U/L (<=34); Albumin, Serum 4.2 g/dL (3.5-5.0); Alkaline Phosphatase 63 U/L (35-104); Anion Gap 14 (5-15); BUN 11 mg/dL (4-19); BUN/Creat Ratio 13.1 RATIO (10-20); Calcium 9.5 mg/dL (7.6-11.0); Carbon Dioxide 24.4 mmol/L (22.0-29.0); Chloride 101 mmol/L (96-108); Creatinine, Serum 0.83 mg/dL (0.70-1.20); EST Glomerular Filtration Rate 98 (>60); Globulin 2.7 g/dL (2.2-4.2); Glucose 85 mg/dL (70-99); Potassium 3.9 mmol/L (3.3-5.1); Protein, Total 6.9 g/dL (5.9-8.4); Sodium Level 140 mmol/L (133-145); Thyroid Stim Hormone (TSH) 0.651 uIU/mL (0.300-4.200); Total Bilirubin 0.24 mg/dL (0.00-1.30); Vitamin D,25 Hydroxy 70.6 ng/mL (30-100)
== END | disposition home or self-care (01) ==
LOC: MFPLAB 11:37
PROVIDERS: PCP Family Medicine; Referring Provider Family Medicine; Visit Provider Family Medicine
DX: R53.83 Other fatigue (principal)
CPT/HCPCS: 36415; 80053; 82306; 84439; 84443; 85025

== ENCOUNTER 2024-06-10 08:27 | Emergency (ER) | payer BC, SELFPAY ==
[2024-06-10 08:28] VITALS: BP 134/79; PULSE 68; RESP 15; TEMP 36.7; O2SAT 100; BMI 22.4
--- NOTE | 2024-06-10 08:53 | EX.ED.DYSGE1 ---
HPI History of Present Illness Chief Complaint: Anxiety Narrative Narrative: Chief complaint and HPI: Anxiety and episodic panic attacks. 28-year-old female with past medical history of anxiety and depression presents for evaluation of anxiety and episodic panic attacks. Patient states that she has been having increase anxiety. She states she was started on fluoxetine as well as hydroxyzine approximately 4 weeks ago for her symptoms. Patient states she is still having intermittent anxiety as well as panic attacks. Panic attacks are random and not specifically related to an incident or event. She has noticed that her anxiety is worse while driving. She denies any tearfulness, depression, suicidal ideation, homicidal ideation, visual or auditory hallucinations. Patient states that her anxiety and episodic panic attacks are causing difficulty with work. She does not follow with a psychiatrist. Patient states she had a panic attack earlier this morning in which she took hydroxyzine. She denies any fever, chills, shortness of breath, chest pain, abdominal pain, nausea, vomiting. States while driving she has been having intermittent and ear popping but no pain. Review of systems: See HPI Medications: As listed on the chart Allergies: As listed on the chart PFSH: Per chart Vital signs: As listed on the chart. Reviewed. Physical exam: Gen: A&O x3, NAD Head: Normocephalic, atraumatic Eyes: No sclera icterus, conjunctiva clear, PERRL, EOMI ENT: TMs clear BL, moist mucous membranes, no nasal congestion Neck: Trachea midline, full range of motion Resp: Lungs CTA BL, no w/r/c Musc: Full ROM, no deformity Skin: Warm Neuro: Alert, oriented, grossly intact, sensation intact Psych: Cooperative, mildly anxious [facility] Medical History Abdominal pain Abnormal weight loss Allergic rhinitis Anxiety and depression Chest pain Fatigue Frequent headaches Headache Hypokalemia Paresthesia Rectal bleeding Home Medications ?Medication ?Instructions ?Recorded ?Last Taken ?Type fluoxetine 10 mg tablet 10 mg PO DAILY 06/10/24 Unknown History hydroxyzine HCl 10 mg tablet 10 mg PO TID PRN PRN anxiety 06/10/24 Unknown History Allergy/AdvReac Type Severity Reaction Status Date / Time No Known Allergies Allergy Verified 06/10/24 08:30 Family History Unknown No problems noted. Father Hypertension Social History Smoking Status: Current every day smoker tobacco type: e-cigarettes EXAM Physical Exam Const Vital Signs: 06/10/24 08:28 Temperature 98.1 F Temperature Source Temporal Pulse Rate 68 Respiratory Rate 15 Blood Pressure 134/79 H Blood Pressure Mean 97 Pulse Ox 100 Oxygen Delivery Method Room Air MDM MDM MDM Narrative Medical decision making narrative: 28-year-old female with past medical history of anxiety and depression presents for evaluation of anxiety and episodic panic attacks. Differential diagnosis includes but is not limited to generalized anxiety, panic attacks, depression. On presentation vitals are stable other than mild hypertension. Patient is alert and oriented and in no acute distress. On physical exam she is not in a panic attack but is mildly anxious. Given that patient was recently started on fluoxetine and hydroxyzine will not increase dosing as it is only been 4 weeks. It takes 4 to 6 weeks to become therapeutic. She is on low-dose of fluoxetine. Patient does not follow with a psychiatrist or counselor. I did want to consult my social work however they are not present until 10 AM. Instead, patient will be referred to a psychiatrist as well as the counseling center for outpatient resources. Follow-up with her primary care physician. She was given Ativan here in the emergency room. She is not driving today. Will be given a work note for the next few days until she feels that her anxiety has improved. She was educated on [id number]-[id number] allergy medicine for her intermittent ear popping/eustachian tube dysfunction. Impression: 1. Anxiety 2. Panic attacks 3. Eustachian tube dysfunction Discharge Plan Triage Chief Complaint: Anxiety ED Provider: Cordell Lenz Dx/Rx/DC Orders Prescriptions: No Action fluoxetine 10 mg tablet 10 mg PO DAILY hydroxyzine HCl 10 mg tablet 10 mg PO TID PRN PRN (Reason: anxiety) Primary Care Provider: Mary Jones Referrals: Mary Jones MD [Primary Care Provider] - Print Language: French
[2024-06-10] MEDS: LORazepam 1 MG Tablet PO (09:20)
== END 2024-06-10 09:23 | disposition home or self-care (01) ==
LOC: ED 09:05
PROVIDERS: Emergency Provider Surgery; PCP Family Medicine; Visit Provider Surgery
DX: F41.0 Panic disorder [episodic paroxysmal anxiety] (principal); H69.90 Unspecified Eustachian tube disorder, unspecified ear; F32.A Depression, unspecified; Z79.899 Other long term (current) drug therapy; F17.290 Nicotine dependence, other tobacco product, uncomplicated
CPT/HCPCS: 99282

== ENCOUNTER 2024-08-06 08:04 | Emergency (ER) | payer BC, SELFPAY ==
[2024-08-06 08:05] VITALS: BP 142/80; PULSE 66; RESP 18; TEMP 36.9; O2SAT 96; BMI 23.7
--- NOTE | 2024-08-06 08:28 | CT_ITS ---
PROCEDURE: BRAIN/HEAD WITHOUT CONTRAST 08/06/2024 REASON FOR EXAM: PARESTHESIAS TECHNIQUE: Contiguous axial scans of 3.75 mm slice thicknesses with sagittal and coronal reconstruction images. One or more dose reduction techniques were utilized (e.g., automated exposure control, adjustment of mA and/or kv according to patient size, use of iterative reconstruction technique). RADIATION DOSE SUMMARY: DLP: 745.49 mGycm COMPARISON: No relevant prior. FINDINGS: Cerebrum: No intraparenchymal hemorrhage. No abnormal areas of encephalomalacia. No mass effect or midline shift. Mendoza-white matter differentiation is normal. Ventricles and cisterns: Appropriate size for patient's age. Extra-axial fluid: Unremarkable. Posterior fossa: Unremarkable cerebellum. No abnormalities involving the brainstem. Paranasal sinuses: Normal. Vasculature: Unremarkable. Mastoid air cells: unremarkable. Calvarium: Unremarkable. Soft tissues: Unremarkable. . Other: Bilateral sydni bullosa. CT/Brain/Head without Contrast IMPRESSION: NORMAL NONCONTRAST HEAD CT. Reading Location: TOO
--- NOTE | 2024-08-06 08:29 | EDS_ITS ---
HPI History of Present Illness Chief Complaint: Anxiety Informant: patient and parent Narrative Narrative: Brought by EMS from work for panic attack. Patient history anxiety since he was younger. However over the last few months things have worsened especially when she drives to work. She states going down [address] slight decline she would notice symptoms she gets to work short of breath she would have weakness into her legs where she props up her legs. Symptoms did not get better therefore called EMS. She gets it almost daily however today was worse. 2 months ago seen for similar. Noticed symptoms last few months seeing her PCP initially put on fluoxetine and hydroxyzine. She has been following her PCP now on Paxil 30 mg with as needed hydroxyzine. Seen 2 months ago in the ED, referred to psychiatry she saw for the first time recently, reports current treatment is what they recommended. Yesterday had an attack where she took hydroxyzine was too tired to go to work. She denies any traumatic events on the road. 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 There was no traumatic events there. No particular triggers. She states sometimes her feet will turn blue however would have burning sensation and not cold sensations. Her hands would be red. She has been having random hives that would come and go that are pruritic. Mother states has a tilt table test coming up. Reporting they have requested for MRIs of her brain through her PCP. Denies headache denies visual changes. States would have transient leg weakness. She does vape. She denies alcohol use denies any recreational drug use. Currently feeling better in the ED. She denies any stressors at work, no issues with any employees or employers. 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 Prior similar symptoms: Yes [facility] Medical History Abdominal pain Headache Fatigue Allergic rhinitis Paresthesia Chest pain Hypokalemia Anxiety and depression Abnormal weight loss Rectal bleeding Frequent headaches Home Medications ?Medication ?Instructions ?Recorded ?Last Taken ?Type fluoxetine 10 mg tablet 10 mg PO DAILY 06/10/24 Unkn own History hydroxyzine HCl 10 mg tablet 10 mg PO TID PRN PRN anxi ety 06/10/24 Unknown History Allergy/AdvReac Type Severity Reaction Status Date / Time No Known Allergies Allergy Verified 08/06/24 08:07 Family History Unknown No problems noted. Father Hypertension Social History Smoking Status: Current every day smoker tobacco type: e-cigarettes ROS ROS ED Constitutional Constitutional ED: Denies chills, fever(s) or sweats ENT ENT ED: Denies sore throat Cardiovascular Cardiovascular: Denies chest pain, leg edema, palpitations or racing heartbeat Respiratory/Chest Respiratory/Chest: Reports dyspnea; Denies cough or dyspnea on exertion Gastrointestinal Gastrointestinal: Denies abdominal pain, diarrhea, nausea or vomiting Genitourinary Genitourinary ED: Denies dysuria, hematuria or urinary frequency Musculoskeletal Musculoskeletal: Denies back pain, extremity pain or neck pain Integumentary Denies rash or wounds Neurologic Neurologic: Reports paresthesias and weakness; Denies headache(s) EXAM Physical Exam Const Vital Signs: 08/06/24 08:05 08/06/24 10:36 Temperature 98.4 F 98.4 F Temperature Source Oral Pulse Rate 66 66 Respiratory Rate 18 18 Blood Pressure 142/80 H 112/78 Blood Pressure Mean 100 89 Pulse Ox 96 96 Oxygen Delivery Method Room Air Positive well nourished and well developed General Appearance ED: well developed and NAD HEENT Reports moist mucous membranes normocephalic and atraumatic Eyes General Eye ED: Yes normal appearance of both eyes Neck full ROM Chest Wall Chest: Negative for tenderness Resp normal respiratory effort and normal air movement Effort and Inspection: symmetric chest movement; Negative for respiratory distress Cardio regular rate, regular rhythm and no murmurs Peripheral Pulses: pulses 2+ throughout GI normal to inspection, nondistended, normoactive bowel sounds and non-tender Palpation: Negative for guarding or rebound tenderness present Extremity normal to inspection Extremity Narrative: Pulses intact distally all 4 extremities. General Extremety ED: Negative for edema or tenderness General Extremity: Negative for edema Neuro oriented x3, CN's II-XII intact bilaterally and no sensory deficits noted Sensorium / Orientation: awake and alert Skin no rashes or lesions noted and no wounds MDM MDM MDM Narrative Medical decision making narrative: Interventions / MDM: Differential diagnosis: Panic attack, paresthesias, weakness Diagnosis considered but do not suspect: No clinical pneumonia or urinary tract symptoms. Intracranial mass over CT negative. Electrolyte abnormalities however labs are normal. My EKG interpretation: Sinus rate of 63, no ST changes. QTc 417. Imaging independently reviewed and interpreted by myself: CT brain: No acute process also read by radiology. External documents reviewed: N/A Test considered but not ordered:N/A ED course: Patient presenting with anxiety attack has been recurrent daily. Currently feeling better. She has concerns for other etiology. I discussed with her can rule out organic causes with CT brain, EKG and labs. Appears there is no triggering event or any traumatic events that could be causing her symptoms from her history. Patient agrees with plan at this time. Patient workup negative. Reassured of findings. With intermittent paresthesia weakness, will refer her to neurology for further evaluation. She agrees with this plan. Outpatient follow-up given. All questions were answered. Re-evaluation: stable Disposition discussed with patient/family/significant other: Patient and mother Case discussed with consulting clinician: N/A This note was generated with [employer]yen dictation software. It may contain incorrect words, spelling, and punctuation that were not noted in checking the note before signing. Lab Data Attestation: I reviewed the patient's lab results. Labs: Laboratory Results - last 24 hr 08/06/24 08:41 WBC 5.6 RBC 4.23 Hgb 13.6 Hct 38.3 MCV 90.5 MCH 32.2 H MCHC 35.5 RDW Std Deviation 39.2 RDW Coeff of Kwasi 11.9 Plt Count 269 MPV 8.9 Immature Gran % (Auto) 0.400 Neut % (Auto) 66.7 Lymph % (Auto) 24.5 Hutchinson % (Auto) 6.6 Eos % (Auto) 0.7 Baso % (Auto) 1.1 H Absolute Neuts (auto) 3.8 Absolute Lymphs (auto) 1.38 Nucleated RBC % 0 Sodium 140 Potassium 3.9 Chloride 107 Carbon Dioxide 24.1 Anion Gap 8 BUN 12 Creatinine 0.75 Estim Creat Clear Calc 103.61 Est GFR (MDRD) Non-Af 110 BUN/Creatinine Ratio 15.8 Glucose 78 Calcium 9.2 Serum , Qual NEGATIVE Radiography Diagnostic Testing: Clinical Impression(s) from Imaging Studies Brain CT 08/06/24 08:28 IMPRESSION: NORMAL NONCONTRAST HEAD CT. Reading Location: [facility] Discharge Plan Triage Chief Complaint: Anxiety ED Provider: Terry Treviño Dx/Rx/DC Orders Clinical Impression: Panic attack, Paresthesias, Weakness Instructions: Anxiety Disorders Tx, ED Weakness Uncertain Cause, ED Paraesthesias Prescriptions: No Action fluoxetine 10 mg tablet 10 mg PO DAILY hydroxyzine HCl 10 mg tablet 10 mg PO TID PRN PRN (Reason: anxiety) Stand Alone Forms: ED Work / School Excuse Primary Care Provider: Mary Jones Referrals: Mary Jones MD [Primary Care Provider] - Norman Ford MD [Non-Staff -Ordering Privileges] - 1 Week Activity Restrictions/Additional Instructions: CT brain negative. Labs are normal EKG normal. Which concerns a weakness and transient numbness, follow-up with neurology. Continue your anxiety medicines through your doctor. Print Language: Indonesian Disposition Disposition: Home, Self Care Discharge Date/Time: 08/06/24 10:36
[2024-08-06 08:59] LABS: Absolute Lymphocyte Count 1.38 X10^3/uL (0.83-4.51); Absolute Neutrophil Count 3.8 X10^3/uL (2.0-7.7); Basophil# 0.06 X10^3/uL; Basophil% 1.1 % (0-1); Eosinophil# 0.04 X10^3/uL; Eosinophils% 0.7 % (0-5); Hematocrit 38.3 % (37-47); Hemoglobin 13.6 g/dL (12.0-15.0); Lymphocyte # 1.38 X10^3/ul (0.83-4.51); Lymphocyte % 24.5 % (19-41); Mean Corp Hgb Conc 35.5 g/dL (32-36); Mean Corpuscular Hgb 32.2 pg (27.0-32.0); Mean Corpuscular Volume 90.5 fL (81-99); Mean Platelet Vol. 8.9 fl (6.2-12.0); Monocyte# 0.37 X10^3/uL; Monocyte% 6.6 % (0-10); NRBC Flagged by Analyzer 0 % (0-5); Neutrophil # 3.77 X10^3/uL (2.7-7.7); Neutrophil % 66.7 % (47-70); Platelet Count 269 K/mm3 (150-450); RBC Distribution Width CV 11.9 % (11.6-14.6); RBC Distribution Width SD 39.2 fl (35.1-43.9); Red Blood Count 4.23 M/mm3 (4.2-5.4); White Blood Count 5.6 K/mm3 (4.4-11.0)
[2024-08-06 09:27] LABS: Anion Gap 8 (5-15); BUN 12 mg/dL (4-19); BUN/Creat Ratio 15.8 RATIO (10-20); Calcium,Total 9.2 mg/dL (7.6-11.0); Carbon Dioxide 24.1 mmol/L (21.0-32.0); Chloride 107 mmol/L (98-108); Creatinine, Serum 0.75 mg/dL (0.70-1.20); EST Glomerular Filtration Rate 110 (>60); Estimated Creatinine Clearance 103.61 ml/min (50-250); Glucose 78 mg/dL (70-99); Potassium 3.9 mmol/L (3.3-5.1); Sodium Level 140 mmol/L (133-145)
[2024-08-06 09:33] LABS: Internal QC Validated? YES +Cl - CLEAR BKGD; Pregnancy, Serum, hCG Quali. NEGATIVE Negative
[2024-08-06 10:36] VITALS: BP 112/78; PULSE 66; RESP 18; TEMP 36.9; O2SAT 96
== END 2024-08-06 10:36 | disposition home or self-care (01) ==
PROVIDERS: Emergency Provider Emergency Medicine; PCP Family Medicine; Visit Provider Emergency Medicine
DX: F41.0 Panic disorder [episodic paroxysmal anxiety] (principal); R20.2 Paresthesia of skin; R53.1 Weakness; F17.290 Nicotine dependence, other tobacco product, uncomplicated; Z79.899 Other long term (current) drug therapy
CPT/HCPCS: 70450; 80048; 84703; 85025; 93005; 99284; A4216

== ENCOUNTER → 2024-08-25 | Outpatient (CLI) | payer BC, SELFPAY ==
[2024-08-25 09:36] LABS: Hematocrit 40.1 % (37-47); Hemoglobin 13.9 g/dL (12.0-15.0); Mean Corp Hgb Conc 34.7 g/dL (32-36); Mean Corpuscular Hgb 32.5 pg (27.0-32.0); Mean Corpuscular Volume 93.7 fL (81-99); Mean Platelet Vol. 9.2 fl (6.2-12.0); Platelet Count 260 K/mm3 (150-450); RBC Distribution Width CV 12.4 % (11.6-14.6); RBC Distribution Width SD 42.6 fl (35.1-43.9); Red Blood Count 4.28 M/mm3 (4.2-5.4); White Blood Count 5.1 K/mm3 (4.4-11.0)
[2024-08-25 10:02] LABS: Internal QC Validated? YES +Cl - CLEAR BKGD
[2024-08-25 10:03] LABS: Anion Gap 9 (5-15); BUN 13 mg/dL (4-19); BUN/Creat Ratio 17.6 RATIO (10-20); Calcium,Total 9.2 mg/dL (7.6-11.0); Carbon Dioxide 23.5 mmol/L (21.0-32.0); Chloride 106 mmol/L (98-108); Creatinine, Serum 0.73 mg/dL (0.70-1.20); EST Glomerular Filtration Rate 115 (>60); Glucose 80 mg/dL (70-99); Potassium 4.2 mmol/L (3.3-5.1); Pregnancy, Serum, hCG Quali. NEGATIVE Negative; Sodium Level 139 mmol/L (133-145)
--- NOTE | 2024-09-15 06:43 | PCM.TILTTABL ---
Staff Staff: Keeley Grimm and Tomeka Caruso Summary Pre Test Resting HR: 84 Pre Test Resting BP: 118/85 Minimum Test HR: 57 Maximum Test HR: 84 Minimum Test BP: 105/93 Maximum Test BP: 133/72 Reason for Test Termination: Reached Maximum Test Time Physician Tilt Table Report Patient's Physicians Primary Care Physician: Mary Jones Inclusion Teacher: Christ Nguyen Indications/Diagnosis: Dizziness Procedure Comments: Patient was brought to the noninvasive lab in the postabsorptive nonsedated state. Informed consent was obtained. Initial heart rate was noted to be 84 bpm with a blood pressure 118/85 mmHg and EKG demonstrating sinus rhythm with no acute changes. The patient was then put in the 70 degree head upright tilt position and complained of mild dizziness initially standing. Patient however continued the test in the position for approximately 30 minutes with mild changes only to the heart rate and stable blood pressure. Patient complained of nausea feeling hot some blurred vision but no significant hemodynamic changes were noted patient was later laid flat with no changes. Summary: Negative head upright tilt table test with no significant abnormalities present.
== END | disposition home or self-care (01) ==
PROVIDERS: PCP Family Medicine; Referring Provider Family Medicine; Visit Provider Family Medicine
DX: R42 Dizziness and giddiness (principal); F41.9 Anxiety disorder, unspecified
CPT/HCPCS: 36415; 80048; 84703; 85027; 93660; A4216

== ENCOUNTER → 2025-01-04 | Outpatient (CLI) | payer BC, SELFPAY ==
--- NOTE | 2025-01-04 13:07 | MRI_ITS ---
PROCEDURE: BRAIN W/WO CONTRAST 01/04/2025 REASON FOR EXAM: MIGRAINE HEADACHE; PERIPHERAL VESTIBULOPATHY. Dizziness, tremors, anxiety. TECHNIQUE: Procedure Code: MRIBRWW Modality: MR Procedure: BRAIN W/WO CONTRAST Multiplanar and multisequence images were obtained. Additional images of the posterior fossa were obtained. CONTRAST: Clariscan VOLUME: 13 mL COMPARISON: CT head without contrast, 08/06/2024. FINDINGS: There is a normal sulcal pattern and gyral configuration. There is no evidence of acute intracranial hemorrhage or infarction. The carpenter-white differentiation is well preserved. There is no evidence of restricted diffusion. The ventricles and basilar cisterns are normal. There are normal flow voids demonstrated in the recognized intracranial vessels. The cerebellum and brainstem are unremarkable. The cerebellar pontine angles are normal. The craniovertebral junction is normal. The sella and suprasellar regions are normal. The orbits and retro-orbital regions are unremarkable. 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 There is no significant paranasal sinus disease. The mastoid air cells are clear. There is normal bone marrow signal in the skull base and calvarium. There is no abnormal intracranial contrast enhancement. MRI/Brain W/WO Contrast IMPRESSION: 1. There are no abnormal masses or contrast enhancement in the either cerebell ar pontine angle or internal auditory canal. 2. Normal MR imaging of the brain with and without IV contrast. 3. Other findings as noted. Reading Location: [id number]
== END | disposition home or self-care (01) ==
LOC: OPMRI 13:02
PROVIDERS: PCP Family Medicine; Referring Provider Psychiatry & Neurology Neurology; Visit Provider Psychiatry & Neurology Neurology
DX: G43.909 Migraine, unspecified, not intractable, without status migrainosus (principal); H81.90 Unspecified disorder of vestibular function, unspecified ear
CPT/HCPCS: 70553; A9575

== ENCOUNTER 2025-02-26 07:44 | Outpatient (RCR) | payer BC, SELFPAY ==
--- NOTE | 2025-02-26 08:47 | HP.PTEVAL ---
Patient's Visit Information Visit Information Visit Information: CHANTE MELENDREZ is a 29 year old F referred to Physical Therapy by Dr. Norman Ford MD with a diagnosis of vestibulopathy. Date of Evaluation: 02/26/25 Physical Therapist: Vitor Zuñiga, JOSET, OCS, CSCS Visit Plan Frequency: 1x/Week Duration: 4-6 Weeks Plan: weekly x 4-6 weeks as needed for: IE HEP: VOR 60 seconds, saccades 60 seconds 6x/day, start 10-12 minute no head movement workout. treat with progression of VOR and saccades as helpful and ensure funtional progression. Subjective Subjective: Mom present. Feeling dizzy every single morning, discombobulated. Feels tunnel vision with driving. Anxiety is an issue but not the whole problm. Has tremor and has for a while in hands. Dizzynss. spinning mosttly in morning for first hour. Dos not move very fast in am. Turning too fast can make hr off balance. No falls. Works on computer looking down all day. Worse on work days. This has been going on for a zaid or more. No idea what started it. Robert sent to [facility] . Sinus was a problem for ENT and took meds and did not help. Family doctor said anxiety. Alisson Ford had MRI and no results yet. Mar 09. 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 Lives with . No problems getting around at home. Basic ADLs are I, May get lightheaded in shower. Has stiff neck.Chiropractor. Had blood work for [employer]. Hobbies, avoided riding motorcycle this summer due to this. Enjoys company . Sleeping is not great, worse over last year, adjusts alot. Pain Neck: Pain Intensity (Out of 10): 0 Objective Objective: Walks into PT I with mom with good balance. Tremors slightly in hands with reaching. Trasnitions I. cervical aROM wFL and without pain but feels stiff.Sensation UE WNl to gross light touch. 2/3 bi and tri reflexes. 4/5 strength UE without myotomal problems. - B hallpike christiano, - roll tests B Oculomotor: no nystagmus with gaze or head shake, no symptoms with head turns ec. - skew ey deviation. - ocular tilt. 4 line diffrence DVA to SVA which is high, - head thrust. purusit is normal saccades give 3/10 dizzy feeling for 15 seconds after 30 H. VOR gives discombobulated feeling after 30 seconds 4/10 for 20 seconds. Balance/Special Test Scores Dizziness Score: 80 Goals Goal 1:: Tolerate VOR adn saccads 60 seconds without symptoms Goal Time Frame: 4-6 Weeks Goal 2:: Pt feel 75% better in overall discomb obulated feeling. Goal Time Frame: 4-6 Weeks Goal 3:: DHI scoree 10 or less. Goal Time Frame: 4-6 Weeks Goal 4:: I approrpiate mgmt of condition. Goal Time Frame: 4-6 Weeks Rehabilitation Potential Physical Therapy Diagnosis: possible vestibular hypofunction causing highr anxxiety and funcitonal deficits. Rehabilitation Potential: Fair Anticipated Interventions Patient/Client Instruction: Educate patient on: Condition and Plan of Care For the Purpose of:: To increase tolerance to activity/condition/position and To improve ability of physical actions for home/community/work/leisure Therapeutic Exercise to Include: Strength training Comment: VOR saccades adaptation For the Purpose of:: To improve muscle performance and motor function, To increase tolerance to activity/condition/position and To improve ability of physical actions for home/community/work/leisure Text: Thank you for the opportunity to evaluate your patient. For Medicare and Medicare HMO plans, please review the plan of care and approve it. It will need to be FAXED BACK to us at [phone] for Medicare purposes. For Medicare only, by signing this I certify the plan of care. Please let me know if there are questions or concerns regarding this plan of care. Physician Signature: Date:
== END 2025-02-26 19:00 | disposition home or self-care (01) ==
LOC: PT 07:44
PROVIDERS: PCP Family Medicine; Referring Provider Psychiatry & Neurology Neurology; Visit Provider Psychiatry & Neurology Neurology
DX: H81.90 Unspecified disorder of vestibular function, unspecified ear (principal)
CPT/HCPCS: 97161

== ENCOUNTER → 2025-02-26 | Outpatient (CLI) | payer BC, SELFPAY ==
--- OUTSIDE RECORDS SUMMARY | 2025-02-26 07:21 | XMS RPT_ITS | CCD ---
Author Organization [facility] CliniSyin Care Team Providers Care Unit Technician Name Role Phone Unavailable Primary Care Provider Unavailnaida e Good Hodge DO Primary Care Provider MD Mary Jones Primary Care Provider Dr. Christ Nguyen Attending Provider Good Hodge DO Primary Care Provider [phone] Good Hodge DO Primary Care Provider Mary Jones MD Primary Care Provider [phone] Mary Jones MD Attending Provider [phone] Mary Jones MD Referring Provider [phone] Dr. Cordell Lenz DO Emergency Provider Dr. Cordell Lenz DO Attending Provider Dr. Terry Treviño DO Emergency Provider [phone] Dr. Terry Treviño DO Attending Provider SKYLER, AMITA Attending Unavailable GOOD HODGE Primary Care Unavailabl e SKYLER, AMITA Referring Unavailable GOOD HODGE Primary Care Unavailabl e SKYLER, AMITA Attending Unavailable GOOD HODGE Primary Care Unavailabl e GOOD HODGE Primary Care Unavailabl e PADMINI MAR Attending Unavailable Mary Jones MD Primary Care Provider [phone] Mary Jones MD Attending Provider Mary Jones MD Referring Provider [phone] Mary Jones MD Other Provider Dr. Miriam Nguyen MDl Attending Provider Dr. Norman Ford MD Attending Provider Robert, Chalon Primary Care Unavailable Cordell Lenz Attending Unavailabl e Robert, Chalon Referring Unavailable Robert, Chalon Primary Care Unavailable Robert, Chalon Attending Unavailable Robert, Chalon Referring Unavailable Robert, Chalon Primary Care Unavailable Robert, Mary Attending Unavailable Robert, Carmelitaon Referring Unavailable YawdoNorman syed Attending Unavailable Robert, Chalon Primary Care Unavailable Robert, Chalon Referring Unavailable WendyChrist Attending Unavailable Robert, Chalon Primary Care Unavailable Robert, Chalon Consulting Unavailable Wendy, Christ Attending Unavailable Logan, Norman Referring Unavailable Robert, Chalon Primary Care Unavailable Yawdokunal, Norman Attending Unavailable Le, Terry Attending Unavailable Robert, Chalon Primary Care Unavailable Medications Current Medications Medication Drug Class(es) Dates Sig (Normalized) Sig (Original) acetaminophen 325 mg / oxyCODONE hydrochloride 5 mg oral tablet (10 sources) Opioid Agonist Start: 04-18-2022 take 1 tablet by mouth every eight hours Oxycodone-Acetami nophen Active 1 TABLET PO Q8H April 18, 2022 12:00am Start: 03-06-2018 End: 03-11-2018 Oxycodone-Acetaminophen 1 TA BLET tablet Discontinued 1 - 2 {tbl} PO 4 TIMES DAILY NEEDED as needed for Pain 40 5 0 March 06, 2018 12:11pm March 10, 2018 1:00am March 11, 2018 1:09am Other acute postprocedural pain Start: 03-06-2018 End: 03-11-2018 take 1 tablet by mouth four times daily as needed Oxycodone-Acetaminophen Discontinued 1 - 2 TABLET PO 4 TIMES DAILY NEEDED 40 5 March 06, 2018 12:11pm March 11, 2018 1:09am ALPRAZolam 0.5 mg oral tablet (2 sources) Benzodiazepine Start: 12-08-2024 take 1 tablet by mouth three times daily as needed Alprazolam 0.5 mg tablet Active 0.5 mg PO THREE TIMES A DAY as needed December 08, 2024 12:00am Start: 11-27-2024 take 1 tablet by anthony th every eight hours as needed ALPRAZolam (XANAX) 0.5 mg tablet Take 0.5 mg by mouth three times a day as needed. 11/27/2024 Active clindamycin 150 mg oral capsule (10 sources) Lincosamide Antibacterial Start: 04-18-2022 take 150 mg by mouth three times daily Clindamycin Hcl Active 150 MG PO THREE TIMES A DAY April 18, 2022 12:00am Start: 03-06-2018 End: 04-09-2018 take 2 capsules by mouth three times daily Clindamycin Hcl 150 MG capsule Discontinued 300 mg PO THREE TIMES A DAY 30 0 March 06, 2018 1:00am April 09, 2018 10:13am Start: 03-06-2018 End: 04-09-2018 take 300 mg by mouth three times daily Clindamycin Hcl Discontinued 300 MG PO THREE TIMES A DAY March 06, 2018 1:00am April 09, 2018 10:13am LORazepam 1 mg oral tablet (10 sources) Benzodiazepine Start: 04-18-2022 take 1 mg by mouth once daily Lorazepam Active 1 MG PO DAILY April 18, 2022 12:00am Start: 09-27-2015 End: 01-29-2018 take 1 tablet by mouth three times daily as needed for anxiety Lorazepam 1 MG tablet Discontinued 1 mg PO THREE TIMES A DAY as needed for Anxiety 15 0 September 27, 2015 9:59pm January 29, 2018 9:04am Sunsites (Nk) (3 sources) Start: 09-24-2022 Sunsites (Nk) Active September 24, 2022 12:00am PARoxetine hydrochloride 10 mg oral tablet (3 sources) Serotonin Reuptake Inhibitor take 2 tablets by mouth once daily PARoxetine (PAXIL) 10 mg tablet Take 20 mg by mouth once daily. Active 114-IRON A-G-FOLATE 1 ORAL (7 sources) 114-IRO N A-G-FOLATE 1 ORAL Take 1 capsule by mouth once daily. Active 114-IRO N A-G-FOLATE 1 ORAL Take 1 capsule by mouth once daily. 0 Active Comment on above: Take 1 capsule by [facility] once daily. sertraline 50 mg oral tablet (2 sources) Serotonin Reuptake Inhibitor Start: 12-08-2024 take 1 tablet by mouth once daily Sertraline 50 mg tablet Active 50 mg PO daily December 08, 2024 12:00am Start: 09-04-2024 take 1 tablet by anthony th once daily sertraline (ZOLOFT) 50 mg tablet Take 1 tablet by mouth once daily. 09/04/2024 Active Completed/Discontinued Medications Medication Drug Class(es) Dates Sig (Normalized) Sig (Original) [id number] 200 actuat albuterol 0.09 mg/actuat metered dose inhaler (2 sources) beta2-Adrenergic Agonist Start: 11-16-2020 End: 04-23-2022 take 2 puff(s) by inhalation every four hours as needed albuterol HFA (VENTOLIN HFA) 90 mcg/actuation inhaler Indications: Wheezing Inhale 2 Puffs as instructed every 4 hours as needed. 18 g 0 11/16/2020 04/23/2022 Discontinued Comment on above: Inhale 2 Puffs as in structed every 4 hours as needed. brompheniramine maleate 0.4 mg/ml / dextromethorphan hydrobromide 2 mg/ml / pseudoephedrine hydrochloride 6 mg/ml oral solution (2 sources) alpha-Adrenergic Agonist, Uncompetitive Y-lritaj-Z-aspartat e Receptor Antagonist, Sigma-1 Agonist Start: 02-15-2019 End: 04-23-2022 take 5 mL by mouth four times daily as needed Brompheniramine-P seudoeph-DM (BROMFED DM) 2-30-10 mg/5 mL syrup Indications: Bacterial sinusitis Take 5 mL by mouth four times daily as needed. 118 mL 0 02/15/2019 04/23/2022 Discontinued Comment on above: Take 5 mL by mouth f our times daily as needed. 24 hr buPROPion hydrochloride 150 mg extended release oral tablet (4 sources) Aminoketone Start: 04-11-2022 End: 07-01-2023 take 1 tablet by mouth once daily buPROPion XL (WELLBUTRIN XL) 150 mg 24 hr tablet Take 150 mg by mouth once daily. 0 04/11/2022 07/01/2023 Discontinued Comment on above: Take 150 mg by mouth once daily. Ethinyl Estradiol / norgestimate (6 sources) Progestin, Estrogen Start: 07-30-2021 End: 07-01-2023 take 1 tablet by mouth once daily norgestimate 0.25 mg-ethinyl estradiol 35 mcg (SPRINTEC) 0.25-35 mg-mcg per tablet Take 1 tablet by mouth once daily. 0 07/30/2021 07/01/2023 Discontinued Start: 07-30-2021 take 1 tablet by antohny th once daily norgestimate 0.25 mg-ethinyl estradiol 35 mcg (SPRINTEC) 0.25-35 mg-mcg per tablet Take 1 tablet by mouth once daily. 0 07/30/2021 Active Start: 05-23-2020 End: 04-23-2022 take 1 tablet by mouth once daily SPRINTEC 0.25-35 mg-mcg per tablet TAKE 1 TABLET BY MOUTH EVERY DAY 1 Package 0 05/23/2020 04/23/2022 Discontinued Start: 05-23-2020 take 1 tablet by anthony th once daily SPRINTEC 0.25-35 mg-mcg per tablet TAKE 1 TABLET BY MOUTH EVERY DAY 1 Package 0 05/23/2020 Active Start: 09-27-2015 Norgestimate-E thinyl Estradiol (Sprintec 28 Day Tablet) 1 EACH tablet Active 1 EACH PO DAILY September 26, 2015 11:00pm Comment on above: TAKE 1 TABLET BY ANTHONY TH EVERY DAY Take 1 tablet by anthony th once daily. FLUoxetine 10 mg oral tablet (5 sources) Serotonin Reuptake Inhibitor Start: 06-11-19 End: 12-09-19 take 1 tablet by mouth once daily Fluoxetine 10 mg tablet Discontinued 10 mg PO DAILY June 10, 2024 12:00am December 08, 2024 8:58am hydrOXYzine hydrochloride 10 mg oral tablet (6 sources) Antihistamine Start: 06-11-19 End: 12-09-19 take 1 tablet by mouth three times daily as needed for anxiety Hydroxyzine Hcl 10 mg tablet Discontinued 10 mg PO 3 TIMES DAILY NEEDED as needed for anxiety June 10, 2024 12:00am December 08, 2024 8:58am Start: 04-18-2022 take 25 mg by mouth at bedtime Hydroxyzine Hcl Active 25 MG PO AT BEDTIME April 18, 2022 12:00am Problems Active Problems Problem Classification Problem Date Documented Date Episodic/Chronic Anxiety disorders (14 sources) Anxiety; Translations: [Anxiety disorder, unspecified] Onset: 08-11-2024 06-10-2024 Chronic Blindness and vision defects (1 source) Eye / vision finding; Translations: [Unspecified visual disturbance] Episodic Conditions associated with dizziness or vertigo (14 sources) Dizziness; Translations: [Dizziness and giddiness] Onset: 10-13-2024 09-24-2022 Episodic Endometriosis (2 sources) Uterine adenomyosis; Translations: [Adenomyosis of the uterus] 06-06-2024 Chronic Headache; including migraine (3 sources) Migraine; Translations: [Migraine, unspecified, not intractable, without status migrainosus] Onset: 01-25-2025 12-08-2024 Chronic Immunizations and screening for infectious disease (1 source) Patient encounter status; Translations: [Encounter for screening for human papillomavirus (HPV)] Episodic Menstrual disorders (9 sources) Irregular periods; Translations: [Irregular menstruation, unspecified] Onset: 04-01-2022 04-23-2022 Chronic Open wounds of extremities (2 sources) Laceration of left middle finger; Translations: [Laceration without foreign body of left middle finger without damage to nail, initial encounter] Onset: 11-30-2024 11-30-2024 Episodic Open wounds of head; neck; and trunk (9 sources) Sequelae of open wound of head ; Translations: [Unspecified open wound of other part of head, sequela] 03-17-2018 Episodic Comment on above: post-traumatic bilat eral earlobe scar contour deformity Other female genital disorders (1 source) Vaginal discharge; Translations: [Other specified noninflammatory disorders of vagina] Episodic Other injuries and conditions due to external causes (9 sources) Sequela of disorder; Translations: [Other specified effects of external causes, sequela] 03-17-2018 Episodic Comment on above: post-traumatic bilat eral earlobe scar contour deformity Other lower respiratory disease (1 source) Hyperventilation; Translations: [Hyperventilation] Episodic Other nervous system disorders (3 sources) Paresthesia; Translations: [Paresthesia of skin] 08-06-2024 Episodic Other screening for suspected conditions (not mental disorders or infectious disease) (1 source) Cancer cervix screening status; Translations: [Encounter for screening for malignant neoplasm of cervix] Episodic Other upper respiratory infections (1 source) Sore throat symptom; Translations: [Acute pharyngitis, unspecified] Episodic Residual codes; unclassified (1 source) Other specified personal risk factors, not elsewhere classified; Translations: [Other specified personal history presenting hazards to health] Episodic Substance-related disorders (9 sources) Smoker; Translations: [Nicotine dependence, unspecified, uncomplicated] 03-17-2018 Chronic Unclassified (1 source) Peripheral vestibulopathy Unclassified (2 sources) H81.90 - Unspecified disorder of vestibular function, unspecified ear Past or Other Problems Problem Classification Problem Date Documented Date Episodic/Chronic Abdominal pain (4 sources) Pain in female pelvis; Translations: [Pelvic and perineal pain] Onset: 05-21-2024 05-21-2024 Episodic Malaise and fatigue (4 sources) Asthenia; Translations: [Weakness] Onset: 06-11-2024 08-06-2024 Episodic Other female genital disorders (6 sources) Cyst of uterine adnexa; Translations: [Other noninflammatory disorders of ovary, fallopian tube and broad ligament] Onset: 06-06-2024 06-06-2024 Episodic Results Test Name Value Interpretation Reference Range Facility Brain W/WO Contraston 2024 Brain W/WO Contrast [facility] [address] [place] [address] [id number] Brain W/WO Contrast MR#: [id number] Acct: [id number] Name: CHANTE HAZEL Rep #: [id number] : 1995 F 29 From: Wolfgang Haynes MD PCP: Dr. Mary Jones MD Status: [facility] CLI Study: Brain W/WO Contrast Date of Exam: 01/04/25 Exam# [id number] Ordering Dr: Norman Ford MD PROCEDURE: BRAIN W/WO CONTRAST 01/04/2025 REASON FOR EXAM: MIGRAINE HEADACHE; PERIPHERAL VESTIBULOPATHY. Dizziness, tremors, anxiety. TECHNIQUE: Procedure Code: MRIBRWW Modality: MR Procedure: BRAIN W/WO CONTRAST Multiplanar and multisequence images were obtained. Additional images of the posterior fossa were obtained. CONTRAST: Clariscan VOLUME: 13 mL COMPARISON: CT head without contrast, 08/06/2024. FINDINGS: There is a normal sulcal pattern and gyral configuration. There is no evidence of acute intracranial hemorrhage or infarction. The mendoza-white differentiation is well preserved. There is no evidence of restricted diffusion. The ventricles and basilar cisterns are normal. There are normal flow voids demonstrated in the recognized intracranial vessels. The cerebellum and brainstem are unremarkable. The cerebellar pontine angles are normal. The craniovertebral junction is normal. The sella and suprasellar regions are normal. The orbits and retro-orbital regions are unremarkable. 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 There is no significant paranasal sinus disease. The mastoid air cells are clear. There is normal bone marrow signal in the skull base and calvarium. There is no abnormal intracranial contrast enhancement. MRI/Brain W/WO Contrast IMPRESSION: 1. There are no abnormal masses or contrast enhancement in the either cerebellar pontine angle or internal auditory canal. 2. Normal MR imaging of the brain with and without IV contrast. 3. Other findings as noted. Reading Location: [id number] CC: Dr. Mary Jones MD; Dr. Norman Ford MD Spinning And Winding Supervisor: Signed Normal [facility] Visit Reporton Neurology Visit Report [facility] [address], [address] [place] [address] OFFICE VISIT Date of Service: 12/08/24 MR#: [id number] Acct: [id number] Name: CHANTE HAZEL Rep #: [id number] : 1995 Provider: Dr. Norman bucio MD Age/Sex: 29/F Location[place] [facility] [place] Status: Signed [facility] Chief Complaint: Establish Care Details: History: The patient is a 29-year-old right-handed woman with a past medical history of irritable bowel syndrome, anxiety disorder and panic attacks who presents for evaluation of headaches and other symptoms. She has been experiencing headaches since childhood. Since around May 2024 she has had an increase in her headache frequency and severity. She now experiences headaches nearly every morning. Her headaches are throbbing type headaches that can be localized to the temporal or occipital head regions. She has associated photophobia, phonophobia and nausea. Her headaches are often present upon awakening in the morning. Acetaminophen has been of only modest benefit. Prior to May 2024 her headaches had occurred about 2 days/month. She has been experiencing positional disequilibrium and vertigo since around May 2024. This is often most pronounced in the morning. She occasionally experiences associated transient blurring of vision. She notes having a left ear popping sensation. She has had some tinnitus bilaterally (left greater than right). She denies having hearing loss. She has an infected wisdom tooth and needs to have her wisdom teeth extracted later today. She experiences nausea with her disequilibrium. She has been experiencing a tremor in the hands since May 2024. Her tremor is worse when she is anxious. At times the tremor interferes with activities. She reports having vague numbness in the feet. She has fatigue. She denies having low back pain. She has neck pain. Prior cervical spine x-rays revealed straightening of the normal cervical lordosis. She does not have any history of concussion. She has experienced palpitations in association with her anxiety and panic attacks and states that her pulse has been noted to be as high as 180 at times. She states that she stutters and has had some word finding difficulty during periods of marked anxiety. She had a recent tilt table test and this was negative. Buspirone 5 mg 3 times daily was not of benefit for her anxiety. Hydroxyzine caused sedation. Fluoxetine was not well-tolerated. She currently takes sertraline and alprazolam and these have been of some benefit for her anxiety. She saw a psychiatrist once and continuation of her current therapy was recommended. She has sinus allergies to grass and trees. She has been experiencing neck pain over the past 2 years and this has become more pronounced since around May 2024. She denies having low back pain. Past Medical History: Social History: Family History: The patient's mother has headaches. There is no family history of cerebral aneurysm, seizure, stroke, or tremor. Review of Systems: As above. The patient has not had any recent fever, rash, weight change, chest pain, shortness of breath, gastrointestinal problems or urinary problems. Physical Exam: General: Well-developed, well-nourished female in no acute distress. Neuro: The patient is awake and alert and responds appropriately; speech is fluent; language function is within normal limits Cranial nerves: PERRL, 3mm bilaterally; EOMI; visual peralta are full; visual acuity is 20/25 bilaterally; face is symmetrical; tongue is midline; there are no deficits to pinprick Cerebellar system: No nystagmus or dysmetria Deep tendon reflexes: +2 at the knees, ankles, biceps bilaterally, triceps bilaterally and brachioradialis bilaterally; plantar responses are downward bilaterally Motor: Strength 5/5 in the biceps bilaterally, abductor pollicis brevis muscles bilaterally, first dorsal interosseous muscles bilaterally, quadriceps bilaterally and foot dorsiflexors bilaterally; no drift; a fine mild tremor is noted in both hands when arms are extended Sensory: There are no deficits to soft touch, vibration or pinprick Gait: Unremarkable HEENT: Normocephalic; atraumatic; tympanic membranes are clear Neck: No bruits Heart: Regular rhythm and rate Extremities: No cyanosis or edema; dorsalis pedis pulses are +1 on the right and +2 on the left Assessment and Plan Assessment and Plan (1) Migraine headache: Status: Acute (2) Peripheral vestibulopathy: Status: Acute (3) Essential tremor: Status: Acute (4) Anxiety: Status: Inactive Orders: Orders Brain W/WO Contrast Today G43.909 - Migraine, unspecified, not intractable, without status migrainosus, H81.90 - Unspecified disorder of vestibular function, unspecified ear Referrals Physical Therapy Referral H81.90 - Unspecified disorder of vestibular function, unspecified (more content not included)... [facility] ([facility]) CHANTE HAZEL ([id number]) 1995 F Date Time Provider Department 11/30/24 11:30 AM PADMINI MAR During your visit today, we recorded the following information about you: Temperature Pulse Respiration Blood pressure 97.6 degrees 62/minute 16/minute 104/62 Weight 64.6 kg Padmini Mar APRN.NUCLEAR WORKER TECHNICIAN 11/30/2024 1:23 PM Signed Subjective Chante Hazel is a 29 year old female. The history is provided by the patient and the spouse. No customs guard was used. HPI Chante Hazel is a 29 year old female who presents today for CC of laceration on left middle finger, but about an hours ago with a facial razor. She has not used any treatment or medications. Last tdap was 04/2021 SOCIAL HISTORY[1] PAST MEDICAL HISTORY Diagnosis Date Anxiety and depression 04/04/2022 Coitus painful for female DYSMENORRHEA Ovarian cyst I have confirmed and edited as necessary, the [facility] Review of Systems Constitutional: Negative for fatigue and fever. Musculoskeletal: Negative for myalgias. Skin: Positive for wound (laceration left middle finger). Negative for color change and rash. Objective BP 104/62 Pulse 62 Temp 36.4 ?C (97.6 ?F) Resp 16 Wt 64.6 kg (142 lb 6.7 oz) LMP 05/18/2024 (Exact Date) SpO2 100% BMI 22.99 kg/m? Physical Exam Constitutional: General: She is not in acute distress. HENT: Head: Normocephalic and atraumatic. Eyes: Conjunctiva/sclera: Conjunctivae normal. Pupils: Pupils are equal, round, and reactive to light. Pulmonary: Effort: Pulmonary effort is normal. Musculoskeletal: Right hand: Normal. Left hand: Tenderness present. No swelling, deformity, lacerations or bony tenderness. Normal range of motion. Normal strength. Normal sensation. There is no disruption of two-point discrimination. Normal capillary refill. Normal pulse. Hands: Cervical back: Normal range of motion and neck supple. Comments: 1cm laceration, not deep. Skin: General: Skin is warm and dry. Findings: Laceration present. Neurological: Mental Status: She is alert and oriented to person, place, and time. Laceration Procedure: left long finger Date/Time: 11/30/2024 1:20 PM Performed by: Padmini Mar APRN.NUCLEAR WORKER TECHNICIAN Authorized by: Padmini Mar APRN.NUCLEAR WORKER TECHNICIAN Informed Consent Consent Obtained: Verbal Bend Protocol SIGN IN Patient/Surrogate Stated/Verified: Patient name, Intended procedure, Date of and Relevant allergies TIME OUT Laceration Repair Body area: upper extremity Location details: left long finger Laceration length: 1 cm Foreign bodies: no foreign bodies Tendon involvement: none Nerve involvement: none Vascular damage: no Irrigation solution: saline Irrigation method: syringe Amount of cleaning: extensive Debridement: none Degree of undermining: none Skin closure: Steri-Strips Approximation difficulty: simple Dressing: non-adhesive packing strip Patient tolerance: patient tolerated the procedure well with no immediate complications History and Record Review External record(s) reviewed: prior outpatient record. Findings from review of outpatient records: last tetanus 04/2021 ASSESSMENT/PLAN: 1. Laceration of left middle finger without foreign body without damage to nail, initial encounter - ICD9: 883.0, ICD10: S61.213A Wound care discussed Monitor for signs of infection Follow up with PCP prn Diagnosis and treatment plan were discussed and questions were answered to the patient's satisfaction. Pt acknowledged understanding of concepts and follow up plan. Specific signs and symptoms that would indicate the need for higher level of care were discussed in detail warranting prompt ER evaluation. Padmini Mar APRN.NUCLEAR WORKER TECHNICIAN [1] Social History Tobacco Use Smoking status: Former Current packs/day: 0.50 Average packs/day: 0.5 packs/day for 1 year (0.5 ttl pk-yrs) Types: Cigarettes Passive exposure: Never Smokeless tobacco: Never Tobacco comments: vape Vaping Use Vaping status: current everyday user Substances: Nicotine, Flavoring Devices: Disposable Substance Use Topics Alcohol use: Not Currently Drug use: Never Padmini Mar APRN.NUCLEAR WORKER TECHNICIAN 11/30/2024 1:23 PM Signed -Monitor for signs of infection -Leave steri strips on until fall off - do not get we the first 24 hous. -Return for re-eval if any signs or symptoms of infection. Allergies As of Date: 11/30/2024 (No Known Allergies) Date Reviewed: 11/30/2024 Reviewed by: Katiuska Montaño MA - Fully Assessed Reason for Visit: Laceration [1747] Cmt: left middle finger x 1 hour, cut with facial razor Primary Visit Diagnosis:Laceration of left middle finger without foreign body without damage to nail, initial encounter [S61.213A] Order(s):Laceration Procedure: left long finger [AWP304] Order #: [id number] Prescriptions as of 11/30/2024 - ALPRAZolam (more content not included)... Normal [facility] Procedure: left l omid fingeron 11-30-2024 [facility] Tilt Tableon 09-15-2024 Tilt Table [facility] [place] [address] [place] [address] 09/15/24 0643 MR#: [id number] Acct: [id number] Name: CHANTE HAZEL Rep #: [id number] : 1995 28 From: Christ Nguyen MD Attending Dr: Dr. Mary Jones MD Status: [facility] [facility] Ordering Dr: Mary Jones MD Date: 09/15/24 Location: [facility] Sex: F C Admitted: ADDENDUM by Dr. Christ Nguyen MD on 10/12/24 at 1114 Correction. Date was 08/25/24 10/12/24 1114 Date Christ Nguyen MD cc: Dr. Mary Jones MD * Signed Staff Staff: Keeley Grimm and Tomeka Caruso Summary Pre Test Resting HR: 84 Pre Test Resting BP: 118/85 Minimum Test HR: 57 Maximum Test HR: 84 Minimum Test BP: 105/93 Maximum Test BP: 133/72 Reason for Test Termination: Reached Maximum Test Time Physician Tilt Table Report Patient's Physicians Primary Care Physician: Mary Jones Wash Worker: Christ Nguyen Indications/Diagnosi s: Dizziness Procedure Comments: Patient was brought to the noninvasive lab in the postabsorptive nonsedated state. Informed consent was obtained. Initial heart rate was noted to be 84 bpm with a blood pressure 118/85 mmHg and EKG demonstrating sinus rhythm with no acute changes. The patient was then put in the 70 degree head upright tilt position and complained of mild dizziness initially standing. Patient however continued the test in the position for approximately 30 minutes with mild changes only to the heart rate and stable blood pressure. Patient complained of nausea feeling hot some blurred vision but no significant hemodynamic changes were noted patient was later laid flat with no changes. Summary: Negative head upright tilt table test with no significant abnormalities present. 09/15/2448 Date Christ Nguyen MD CC: Dr. Mary Jones MD Date Dictated: 09/15/24642 Date Transcribed: 09/15/24642 [employer] Supervisor: [place] Signed Normal [facility] Anion gap in Serum or Plasma Ordered By: Mary Jones on 08-25-2024 Anion gap [Moles/Vol] 9 mmol/L - [facility] BUN/creatinine ratioOrdered By: Mary Jones on 08-25-2024 Urea nitrogen/Creatinine [Mass ratio] 17.6 mg/mg - [facility] Basic Metabolic Profile (BMP )on 08-25-2024 BUN/CRE 17.6 RATIO Normal 01-18 [facility] Comment on above: Order Comment: Order Date: 07/27/24Order Info: 0667-1 - BMP Performed By: #### L 100.0500, L700.6800, L500.2500 ####[facility] [address] [place], [address] Calcium [Mass/Vol] 9.2 mg/dL Normal 7.6-11.[address] [facility] Comment on above: Order Comment: Order Date: 07/27/24Order Info: 0667-1 - BMP Performed By: #### L 100.0500, L700.6800, L500.2500 ####[facility] [address] [place], [address] Chloride [Moles/Vol] 106 mmol/L Normal 98-108 [facility] Comment on above: Order Comment: Order Date: 07/27/24Order Info: 0667-1 - BMP Performed By: #### L 100.0500, L700.6800, L500.2500 ####[facility] [address] [place], [address] CO2 [Moles/Vol] 23.5 mmol/L Normal 21.0-32.0 [facility] Comment on above: Order Comment: Order Date: 07/27/24Order Info: 0667-1 - BMP Performed By: #### L 100.0500, L700.6800, L500.2500 ####[facility] [address] [place], [address] Creatinine [Mass/Vol] 0.73 mg/dL Normal 0.70-1.20 [facility] Comment on above: Order Comment: Order Date: 07/27/24Order Info: 0667- - BMP Performed By: #### L 100.0500, L700.6800, L500.2500 ####[facility] [address] [place], [address] GAP 9 Normal 5-15 [facility] Comment on above: Order Comment: Order Date: 07/27/24Order Info: 0667- - BMP Performed By: #### L 100.0500, L700.6800, L500.2500 ####[facility] [address] [place], [address] GFR/1.73 sq M.predicted among non-blacks MDRD (S/P/Bld) [Vol rate/Area] 115 mL/min/{1.73_m2} Normal >60 [facility] Comment on above: Order Comment: Order Date: 07/27/24Order Info: 0667- - BMP Result Comment: mL/m in/1.73m2 CKD-EPI Creatinine Equation (2020) Performed By: #### L 100.0500, L700.6800, L500.2500 ####[facility] [address] [place], [address] Glucose [Mass/Vol] 80 mg/dL Normal 70-[address] [facility] Comment on above: Order Comment: Order Date: 07/27/24Order Info: 0667- - BMP Performed By: #### L 100.0500, L700.6800, L500.2500 ####[facility] [address] [place], [address] Potassium [Moles/Vol] 4.2 mmol/L Normal 3.3-5.1 [facility] Comment on above: Order Comment: Order Date: 07/27/24Order Info: 0667-1 - BMP Performed By: #### L 100.0500, L700.6800, L500.2500 ####[facility] [address] [place], [address] Sodium [Moles/Vol] 139 mmol/L Normal 133-[address] [facility] Comment on above: Order Comment: Order Date: 07/27/24Order Info: 0667- - BMP Performed By: #### L 100.0500, L700.6800, L500.2500 ####[facility] [address] [place], [address] Urea nitrogen [Mass/Vol] 13 mg/dL Normal 4-19 [facility] Comment on above: Order Comment: Order Date: 07/27/24Order Info: 0667- - BMP Performed By: #### L 100.0500, L700.6800, L500.2500 ####[facility] [address] [place], [address] CBC-Complete Blood Cnt No Di ffon 08-25-2024 Erythrocyte distribution width (RBC) [Ratio] 12.4 % Normal 11.6-14.6 [facility] Comment on above: Order Comment: Order Date: 07/27/24Order Info: 49824-1 - CBC Performed By: #### L 100.0500, L700.6800, L500.2500 ####[facility] [address] [place], [address] Hematocrit (Bld) [Volume fraction] 40.1 % Normal 37-47 [facility] Comment on above: Order Comment: Order Date: 07/27/24Order Info: 51274-6 - CBC Performed By: #### L 100.0500, L700.6800, L500.2500 ####[facility] [address] [place], [address] Hemoglobin (Bld) [Mass/Vol] 13.9 g/dL Normal 12.0-15.0 [facility] Comment on above: Order Comment: Order Date: 07/27/24Order Info: [id number] - CBC Performed By: #### L 100.0500, L700.6800, L500.2500 ####[facility] [address] [place], [address] MCH (RBC) [Entitic mass] 32.5 pg High 27.0-32.0 [facility] Comment on above: Order Comment: Order Date: 07/27/24Order Info: 31244-2 - CBC Performed By: #### L 100.0500, L700.6800, L500.2500 ####[facility] [address] [place], [address] MCHC (RBC) [Mass/Vol] 34.7 g/dL Normal 32-36 [facility] Comment on above: Order Comment: Order Date: 07/27/24Order Info: [id number] - CBC Performed By: #### L 100.0500, L700.6800, L500.2500 ####[facility] [address] [place], [address] MCV (RBC) [Entitic vol] 93.7 fL Normal 81-99 [facility] Comment on above: Order Comment: Order Date: 07/27/24Order Info: [id number] - CBC Performed By: #### L 100.0500, L700.6800, L500.2500 ####[facility] [address] [place], [address] Platelet mean volume (Bld) [Entitic vol] 9.2 fL Normal 6.2-12.0 [facility] Comment on above: Order Comment: Order Date: 07/27/24Order Info: [id number] - CBC Performed By: #### L 100.0500, L700.6800, L500.2500 ####[facility] [address] [place], [address] Platelets (Bld) [#/Vol] 260 10*3/uL Normal 150-450 [facility] Comment on above: Order Comment: Order Date: 07/27/24Order Info: 12294-0 - CBC Performed By: #### L 100.0500, L700.6800, L500.2500 ####[facility] [address] [place], [address] RBC (Bld) [#/Vol] 4.28 10*6/uL Normal 4.2-5.4 [facility] Comment on above: Order Comment: Order Date: 07/27/24Order Info: [id number] - CBC Performed By: #### L 100.0500, L700.6800, L500.2500 ####[facility] [address] [place], [address] RDW SD 42.6 fl Normal 35.1-43.9 [facility] Comment on above: Order Comment: Order Date: 07/27/24Order Info: [id number] - CBC Performed By: #### L 100.0500, L700.6800, L500.2500 ####[facility] [address] [place], [address] WBC (Bld) [#/Vol] 5.1 10*3/uL Normal 4.4-11.[address] [facility] Comment on above: Order Comment: Order Date: 07/27/24Order Info: [id number] - CBC Performed By: #### L 100.0500, L700.6800, L500.2500 ####[facility] [address] [place], [address] Carbon dioxide, total [Moles /volume] in Central venous bloodOrdered By: Mary Jones on 08-25-2024 CO2 [Moles/Vol] 23.5 mmol/L 21.0-32.0 [facility] Chloride assayOrdered By: Rich Jones on 08-25-2024 Chloride [Moles/Vol] 106 mmol/L 98-108 [facility] Erythrocyte distribution wid th ratioOrdered By: Mary Jones on 08-25-2024 Erythrocyte distribution width (RBC) [Ratio] 12.4 % 11.6-14.6 [facility] Erythrocyte distribution wid th standard deviationOrdered By: Mary Jones on 08-25-2024 Erythrocyte distribution width (RBC) [Ratio] 42.6 fl 35.1-43.9 [facility] Glomerular filtration rate ( GFR) estimation/1.73 sq m using serum, plasma, or whole bOrdered By: Mary Jones on 08-25-2024 GFR/1.73 sq M.predicted among non-blacks MDRD (S/P/Bld) [Vol rate/Area] 115 mL/min/{1.73_m2} >60 [facility] Comment on above: mL/min/1.73m2 CKD-EP I Creatinine Equation (2020) Hematocrit Auto (Bld) [Volum e fraction]Ordered By: Mary Jones on 08-25-2024 Hematocrit (Bld) [Volume fraction] 40.1 % 37-47 [facility] Hemoglobin measurementOrdere d By: Mary Jones on 08-25-2024 Hemoglobin (Bld) [Mass/Vol] 13.9 g/dL 12.0-15.0 [facility] MCV (mean corpuscular volume ) determinationOrdered By: Mary Jones on 08-25-2024 MCV (RBC) [Entitic vol] 93.7 fL 81-99 [facility] Mean corpuscular hemoglobin (MCH) determinationOrdered By: Mary Jones on 08-25-2024 MCH (RBC) [Entitic mass] 32.5 pg High 27.0-32.0 [facility] Mean corpuscular hemoglobin concentration (MCHC) determinationOrdered By: Mary Jones on 08-25-2024 MCHC (RBC) [Mass/Vol] 34.7 g/dL 32-36 [facility] Mean platelet volume determi nationOrdered By: Mary Jones on 08-25-2024 Platelet mean volume (Bld) [Entitic vol] 9.2 fL 6.2-12.0 [facility] Platelet countOrdered By: Rich Jones on 08-25-2024 Platelets (Bld) [#/Vol] 260 10*3/uL 150-450 [facility] Potassium measurement (mass/ volume)Ordered By: Mary Jones on 08-25-2024 Potassium (Unsp spec) [Mass/Vol] 4.2 mmol/L 3.3-5.1 [facility] ,Serum,hCG Quali.on 08-25-2024 HCG, SERUM QUAL Negative Normal [facility] Comment on above: Order Comment: Order Date: 07/27/24Order Info: [id number] - PREGS Performed By: #### L 100.0500, L700.6800, L500.2500 ####[facility] [address] [facility] [place], [address] RBC Auto (Bld) [#/Vol]Ordere d By: Mary Jones on 08-25-2024 RBC (Bld) [#/Vol] 4.28 10*6/uL 4.2-5.4 [facility] Serum beta-hCG test, qualita tiveOrdered By: Mary Jones on 08-25-2024 Beta HCG ( test) Ql Negative [facility] Serum creatinine measurement (mass/volume)Ordered By: Mary Jones on 08-25-2024 Creatinine [Mass/Vol] 0.73 mg/dL 0.70-1.20 [facility] Serum glucose measurement (m ass/volume)Ordered By: Mary Jones on 08-25-2024 Glucose [Mass/Vol] 80 mg/dL 70-[address] [facility] Serum or plasma calcium demi urement (mass/volume)Ordered By: Mary Jones on 08-25-2024 Calcium [Mass/Vol] 9.2 mg/dL 7.6-11.[address] [facility] Serum or plasma urea nitroge n measurement (mass/volume)Ordered By: Carmelitacarie Robert on 08-25-2024 Urea nitrogen [Mass/Vol] 13 mg/dL 4-19 [facility] Sodium levelOrdered By: Carmelita Jones on 08-25-2024 Sodium [Moles/Vol] 139 mmol/L 133-[address] [facility] White blood cell (WBC) count Ordered By: Mary Robert on 08-25-2024 WBC (Bld) [#/Vol] 5.1 10*3/uL 4.4-11.[address] [facility] Absolute lymphocyte countOrd ered By: Terry Treviño on 08-06-2024 Lymphocytes Auto (Unsp spec) [#/Vol] 1.38 10*3/uL 0.83-4.51 [facility] Absolute neutrophil countOrd ered By: Terry Treviño on 08-06-2024 Neutrophils (Bld) [#/Vol] 3.8 10*3/uL 2.0-7.7 [facility] Anion gap in Serum or Plasma Ordered By: Terry Treviño on 08-06-2024 Anion gap [Moles/Vol] 8 mmol/L 5- [facility] Automated lymphocyte count a s percentage of total leukocytesOrdered By: Terry Treviño on 08-06-2024 Lymphocytes/100 WBC Auto (Unsp spec) 24.5 % [facility] BUN/creatinine ratioOrdered By: Terry Treviño on 08-06-2024 Urea nitrogen/Creatinine [Mass ratio] 15.8 mg/mg 01-18 [facility] Basic Metabolic Profile (BMP )on 08-06-2024 BUN/CRE 15.8 RATIO Normal - [facility] Comment on above: Performed By: #### L 700.6800, L100.0100, L500.2500 #### [facility] [address] [place], [address] Calcium [Mass/Vol] 9.2 mg/dL Normal 7.6-11.[address] [facility] Comment on above: Performed By: #### L 700.6800, L100.0100, L500.2500 #### [facility] [address] [place], [address] Chloride [Moles/Vol] 107 mmol/L Normal 98-108 [facility] Comment on above: Performed By: #### L 700.6800, L100.0100, L500.2500 #### [facility] [address] [place], [address] CO2 [Moles/Vol] 24.1 mmol/L Normal 21.0-32.0 [facility] Comment on above: Performed By: #### L 700.6800, L100.0100, L500.2500 #### [facility] [address] [place], [address] Creatinine [Mass/Vol] 0.75 mg/dL Normal 0.70-1.20 [facility] Comment on above: Performed By: #### L 700.6800, L100.0100, L500.2500 #### [facility] [address] [place], [address] ECRCL 103.61 ml/min Normal 50-250 [facility] Comment on above: Performed By: #### L 700.6800, L100.0100, L500.2500 #### [facility] [address] [place], [address] GAP 8 Normal 5-15 [facility] Comment on above: Performed By: #### L 700.6800, L100.0100, L500.2500 #### [facility] [address] [place], [address] GFR/1.73 sq M.predicted among non-blacks MDRD (S/P/Bld) [Vol rate/Area] 110 mL/min/{1.73_m2} Normal >60 [facility] Comment on above: Result Comment: mL/m in/1.73m2 CKD-EPI Creatinine Equation (2020) Performed By: #### L 700.6800, L100.0100, L500.2500 #### [facility] [address] [place], [address] Glucose [Mass/Vol] 78 mg/dL Normal 70-[address] [facility] Comment on above: Performed By: #### L 700.6800, L100.0100, L500.2500 #### [facility] [address] [place], [address] Potassium [Moles/Vol] 3.9 mmol/L Normal 3.3-5.1 [facility] Comment on above: Performed By: #### L 700.6800, L100.0100, L500.2500 #### [facility] [address] [place], [address] Sodium [Moles/Vol] 140 mmol/L Normal 133-[address] [facility] Comment on above: Performed By: #### L 700.6800, L100.0100, L500.2500 #### [facility] [address] [place], [address] Urea nitrogen [Mass/Vol] 12 mg/dL Normal 4-19 [facility] Comment on above: Performed By: #### L 700.6800, L100.0100, L500.2500 #### [facility] [address] [place], [address] Basophil percentageOrdered B y: Terry Le on 08-06-2024 Basophils/100 WBC (Bld) 1.1 % High 0-1 [facility] Brain/Head without Contrasto n 08-06-2024 Brain/Head without Contrast [facility] [address] [place] [address] Brain/Head without Contrast MR#: [id number] Acct: [id number] Name: CHANTE HAZEL Rep #: [id number] : 1995 F 28 From: Vitor Gill MD PCP: Dr. Mary Jones MD Status: REG ER Study: Brain/Head without Contrast Date of Exam: 11/23 Exam# [id number] Ordering Dr: Terry Treviño DO PROCEDURE: BRAIN/HEAD WITHOUT CONTRAST 08/06/2024 REASON FOR EXAM: PARESTHESIAS TECHNIQUE: Contiguous axial scans of 3.75 mm slice thicknesses with sagittal and coronal reconstruction images. One or more dose reduction techniques were utilized (e.g., automated exposure control, adjustment of mA and/or kv according to patient size, use of iterative reconstruction technique). RADIATION DOSE SUMMARY: DLP: 745.49 mGycm COMPARISON: No relevant prior. FINDINGS: Cerebrum: No intraparenchymal hemorrhage. No abnormal areas of encephalomalacia. No mass effect or midline shift. Mendoza-white matter differentiation is normal. Ventricles and cisterns: Appropriate size for patient's age. Extra-axial fluid: Unremarkable. Posterior fossa: Unremarkable cerebellum. No abnormalities involving the brainstem. Paranasal sinuses: Normal. Vasculature: Unremarkable. Mastoid air cells: unremarkable. Calvarium: Unremarkable. Soft tissues: Unremarkable. . Other: Bilateral sydni bullosa. CT/Brain/Head without Contrast IMPRESSION: NORMAL NONCONTRAST HEAD CT. Reading Location: TOO CC: Dr. Mary Jones MD; Dr. Terry Treviño DO [employer] Supervisor: Signed Normal [facility] CBC W/Diff, Automatedon Absolute Lymph 1.38 X10 3/uL Normal 0.83-4.51 [facility] Comment on above: Performed By: #### L 700.6800, L100.0100, L500.2500 #### [facility] [address] [place], [address] Absolute Neut 3.8 X10 3/uL Normal 2.0-7.7 [facility] Comment on above: Performed By: #### L 700.6800, L100.0100, L500.2500 #### [facility] [address] [place], [address] Basophils/100 WBC (Bld) 1.1 % High 0-1 [facility] Comment on above: Performed By: #### L 700.6800, L100.0100, L500.2500 #### [facility] [address] [place], [address] Eosinophils/100 WBC (Bld) 0.7 % Normal 0-5 [facility] Comment on above: Performed By: #### L 700.6800, L100.0100, L500.2500 #### [facility] [address] [place], [address] Erythrocyte distribution width (RBC) [Ratio] 11.9 % Normal 11.6-14.6 [facility] Comment on above: Performed By: #### L 700.6800, L100.0100, L500.2500 #### [facility] [address] [place], [address] Hematocrit (Bld) [Volume fraction] 38.3 % Normal 37-47 [facility] Comment on above: Performed By: #### L 700.6800, L100.0100, L500.2500 #### [facility] [address] [place], [address] Hemoglobin (Bld) [Mass/Vol] 13.6 g/dL Normal 12.0-15.0 [facility] Comment on above: Performed By: #### L 700.6800, L100.0100, L500.2500 #### [facility] [address] [place], [address] IG% 0.400 Normal 0.0-0.9 [facility] Comment on above: Result Comment: IG% - Immature Granulocytes (promyelocytes, myelocytes and metamyelocytes) > 1% indicates that a LEFT SHIFT is Present. Performed By: #### L 700.6800, L100.0100, L500.2500 #### [facility] [address] [place], [address] Lymphocytes/100 WBC (Bld) 24.5 % Normal 19-41 [facility] Comment on above: Performed By: #### L 700.6800, L100.0100, L500.2500 #### [facility] [address] [place], [address] MCH (RBC) [Entitic mass] 32.2 pg High 27.0-32.0 [facility] Comment on above: Performed By: #### L 700.6800, L100.0100, L500.2500 #### [facility] [address] [place], [address] MCHC (RBC) [Mass/Vol] 35.5 g/dL Normal 32-36 [facility] Comment on above: Performed By: #### L 700.6800, L100.0100, L500.2500 #### [facility] [address] [place], [address] MCV (RBC) [Entitic vol] 90.5 fL Normal 81-[address] [facility] Comment on above: Performed By: #### L 700.6800, L100.0100, L500.2500 #### [facility] [address] [place], [address] Monocytes/100 WBC (Bld) 6.6 % Normal 0-[address] [facility] Comment on above: Performed By: #### L 700.6800, L100.0100, L500.2500 #### [facility] [address] [place], [address] Neutrophils/100 WBC (Bld) 66.7 % Normal 47-70 [facility] Comment on above: Performed By: #### L 700.6800, L100.0100, L500.2500 #### [facility] [address] [place], [address] Nucleated RBC (Bld) [#/Vol] 0 10*3/uL Normal 0-5 [facility] Comment on above: Performed By: #### L 700.6800, L100.0100, L500.2500 #### [facility] [address] [place], [address] Platelet mean volume (Bld) [Entitic vol] 8.9 fL Normal 6.2-12.0 [facility] Comment on above: Performed By: #### L 700.6800, L100.0100, L500.2500 #### [facility] [address] [place], [address] Platelets (Bld) [#/Vol] 269 10*3/uL Normal 150-450 [facility] Comment on above: Performed By: #### L 700.6800, L100.0100, L500.2500 #### [facility] [address] [place], [address] RBC (Bld) [#/Vol] 4.23 10*6/uL Normal 4.2-5.4 [facility] Comment on above: Performed By: #### L 700.6800, L100.0100, L500.2500 #### [facility] [address] [place], [address] RDW SD 39.2 fl Normal 35.1-43.9 [facility] Comment on above: Performed By: #### L 700.6800, L100.0100, L500.2500 #### [facility] [address] [place], [address] WBC (Bld) [#/Vol] 5.6 10*3/uL Normal 4.4-11.[address] [facility] Comment on above: Performed By: #### L 700.6800, L100.0100, L500.2500 #### [facility] [address] [place], [address] Carbon dioxide, total [Moles /volume] in Central venous bloodOrdered By: Terry Treviño on 08-06-2024 CO2 [Moles/Vol] 24.1 mmol/L 21.0-32.0 [facility] Chloride assayOrdered By: Gilberto Treviño on 08-06-2024 Chloride [Moles/Vol] 107 mmol/L 98-108 [facility] Emergency Department Summary on 08-06-2024 Emergency Department Summary [facility] Medical Records Department [address] [place] [address] Emergency Department Summary 08/06/24 MR#: [id number] Acct: [id number] Name: CHANTE HAZEL Rep #: [id number] : 1995 28 From: Terry Irwin PCP: Dr. Mary Jones MD Status:DEP ER Location: ED HPI History of Present Illness Chief Complaint: Anxiety Informant: patient and parent Narrative Narrative: Brought by EMS from work for panic attack. Patient history anxiety since he was younger. However over the last few months things have worsened especially when she drives to work. She states going down [address] slight decline she would notice symptoms she gets to work short of breath she would have weakness into her legs where she props up her legs. Symptoms did not get better therefore called EMS. She gets it almost daily however today was worse. 2 months ago seen for similar. Noticed symptoms last few months seeing her PCP initially put on fluoxetine and hydroxyzine. She has been following her PCP now on Paxil 30 mg with as needed hydroxyzine. Seen 2 months ago in the ED, referred to psychiatry she saw for the first time recently, reports current treatment is what they recommended. Yesterday had an attack where she took hydroxyzine was too tired to go to work. She denies any traumatic events on the road. 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 There was no traumatic events there. No particular triggers. She states sometimes her feet will turn blue however would have burning sensation and not cold sensations. Her hands would be red. She has been having random hives that would come and go that are pruritic. Mother states has a tilt table test coming up. Reporting they have requested for MRIs of her brain through her PCP. Denies headache denies visual changes. States would have transient leg weakness. She does vape. She denies alcohol use denies any recreational drug use. Currently feeling better in the ED. She denies any stressors at work, no issues with any employees or employers. 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 Prior similar symptoms: Yes PFSH PFSH Medical History Abdominal pain Headache Fatigue Allergic rhinitis Paresthesia Chest pain Hypokalemia Anxiety and depression Abnormal weight loss Rectal bleeding Frequent headaches Home Medications ???Medication ???Instructions ???Recorded ???Last Taken ???Type fluoxetine 10 mg tablet 10 mg PO DAILY 06/10/24 Unknown Hi story hydroxyzine HCl 10 mg tablet 10 mg PO TID PRN PRN anxiety 06/10 Unknown History Allergy/AdvReac Type Severity Reaction Status Date / Time No Known Allergies Allergy Verified 08/06/24 08:07 Family History Unknown No problems noted. Father Hypertension Social History Smoking Status: Current every day smoker tobacco type: e-cigarettes ROS ROS ED Constitutional Constitutional ED: Denies chills, fever(s) or sweats ENT ENT ED: Denies sore throat Cardiovascular Cardiovascular: Denies chest pain, leg edema, palpitations or racing heartbeat Respiratory/Chest Respiratory/Chest: Reports dyspnea; Denies cough or dyspnea on exertion Gastrointestinal Gastrointestinal: Denies abdominal pain, diarrhea, nausea or vomiting Genitourinary Genitourinary ED: Denies dysuria, hematuria or urinary frequency Musculoskeletal Musculoskeletal: Denies back pain, extremity pain or neck pain Integumentary Denies rash or wounds Neurologic Neurologic: Reports paresthesias and weakness; Denies headache(s) EXAM Physical Exam Const Vital Signs: 08/06/24 08:05 08/06/24 10:36 Temperature 98.4 F 98.4 F Temperature Source Oral Pulse Rate 66 66 Respiratory Rate 18 18 Blood Pressure 142/80 H 112/78 Blood Pressure Mean 100 89 Pulse Ox 96 96 Oxygen Delivery Method Room Air Positive well nourished and well developed General Appearance ED: well developed and NAD HEENT Reports moist mucous membranes normocephalic and atraumatic Eyes General Eye ED: Yes normal appearance of both eyes Neck full ROM Chest Wall Chest: Negative for tenderness Resp normal respiratory effort and normal air movement Effort and Inspection: symmetric chest movement; Negative for respiratory distress Cardio regular rate, regular rhythm and no murmurs Peripheral Pulses: pulses 2+ throughout GI normal to inspection, nondistended, normoactive bowel sounds and non-tender Palpation: Negative for guarding or rebound tenderness present Extremity normal to inspection Extremity Narrative: Pulses intact distally all 4 extremities. General Extremety ED: Negative for edema or tenderness (more content not included)... Normal [facility] Eosinophil percentageOrdered By: Terry Treviño on 08-06-2024 Eosinophils/100 WBC (Bld) 0.7 % 0-5 [facility] Erythrocyte distribution wid th ratioOrdered By: Terry Treviño on 08-06-2024 Erythrocyte distribution width (RBC) [Ratio] 11.9 % 11.6-14.6 [facility] Erythrocyte distribution wid th standard deviationOrdered By: Terry Treviño on 08-06-2024 Erythrocyte distribution width (RBC) [Ratio] 39.2 fl 35.1-43.9 [facility] Glomerular filtration rate ( GFR) estimation/1.73 sq m using serum, plasma, or whole bOrdered By: Terry Treviño on 08-06-2024 GFR/1.73 sq M.predicted among non-blacks MDRD (S/P/Bld) [Vol rate/Area] 110 mL/min/{1.73_m2} >60 [facility] Comment on above: mL/min/1.73m2 CKD-EP I Creatinine Equation (2020) Hematocrit Auto (Bld) [Volum e fraction]Ordered By: Terry Treviño on 08-06-2024 Hematocrit (Bld) [Volume fraction] 38.3 % 37-47 [facility] Hemoglobin measurementOrdere d By: Terry Treviño on 08-06-2024 Hemoglobin (Bld) [Mass/Vol] 13.6 g/dL 12.0-15.0 [facility] Immature granulocytes/100 WB C Auto (Bld)Ordered By: Terry Treviño on 08-06-2024 Immature granulocytes/100 WBC (Bld) 0.400 % 0.0-0.9 [facility] Comment on above: IG% - Immature Granu locytes (promyelocytes, myelocytes and metamyelocytes) > 1% indicates that a LEFT SHIFT is Present. MCV (mean corpuscular volume ) determinationOrdered By: Terry Treviño on 08-06-2024 MCV (RBC) [Entitic vol] 90.5 fL 81-[address] [facility] Mean corpuscular hemoglobin (MCH) determinationOrdered By: Terry Treviño on 08-06-2024 MCH (RBC) [Entitic mass] 32.2 pg High 27.0-32.0 [facility] Mean corpuscular hemoglobin concentration (MCHC) determinationOrdered By: Terry Treviño on 08-06-2024 MCHC (RBC) [Mass/Vol] 35.5 g/dL 32-36 [facility] Mean platelet volume determi nationOrdered By: Terry Treviño on 08-06-2024 Platelet mean volume (Bld) [Entitic vol] 8.9 fL 6.2-12.0 [facility] Monocyte percentageOrdered B y: Terry Treviño on 08-06-2024 Monocytes/100 WBC (Bld) 6.6 % 0-10 [facility] Neutrophil percentageOrdered By: Terry Treviño on 08-06-2024 Neutrophils/100 WBC (Bld) 66.7 % 47-70 [facility] Nucleated red blood cell per centageOrdered By: Terry Treviño on 08-06-2024 Nucleated RBC/100 WBC (Bld) [Ratio] 0 % 0-5 [facility] Platelet countOrdered By: Gilberto Treviño on 08-06-2024 Platelets (Bld) [#/Vol] 269 10*3/uL 150-450 [facility] Potassium measurement (mass/ volume)Ordered By: Terry Treviño on 08-06-2024 Potassium (Unsp spec) [Mass/Vol] 3.9 mmol/L 3.3-5.1 [facility] ,Serum,hCG Quali.on 08-06-2024 HCG, SERUM QUAL Negative Normal [facility] Comment on above: Performed By: #### L 700.6800, L100.0100, L500.2500 #### [facility] [address] [place], [address] RBC Auto (Bld) [#/Vol]Ordere d By: Terry Treviño on 08-06-2024 RBC (Bld) [#/Vol] 4.23 10*6/uL 4.2-5.4 [facility] Serum beta-hCG test, qualita tiveOrdered By: Terry Treviño on 08-06-2024 Beta HCG ( test) Ql Negative [facility] Serum creatinine measurement (mass/volume)Ordered By: Terry Treviño on 08-06-2024 Creatinine [Mass/Vol] 0.75 mg/dL 0.70-1.20 [facility] Serum glucose measurement (m ass/volume)Ordered By: Terry Treviño on 08-06-2024 Glucose [Mass/Vol] 78 mg/dL 70-[address] [facility] Serum or plasma calcium demi urement (mass/volume)Ordered By: Terry Treviño on 08-06-2024 Calcium [Mass/Vol] 9.2 mg/dL 7.6-11.[address] [facility] Serum or plasma urea nitroge n measurement (mass/volume)Ordered By: Terry Treviño on 08-06-2024 Urea nitrogen [Mass/Vol] 12 mg/dL 4-19 [facility] Sodium levelOrdered By: Terry Treviño on 08-06-2024 Sodium [Moles/Vol] 140 mmol/L 133-[address] [facility] White blood cell (WBC) count Ordered By: Terry Treviño on 08-06-2024 WBC (Bld) [#/Vol] 5.6 10*3/uL 4.4-11.[address] [facility] Emergency Department Summary on 06-10-2024 Emergency Department Summary [facility] Medical Records Department [address] [place] [id number] Emergency Department Summary 06/10/24 MR#: [id number] Acct: [id number] Name: CHANTE HAZEL Rep #: [id number] : 1995 28 From: Cordell Lenz DO PCP: Dr. Mary Jones MD Status:PRE ER Location: ED HPI History of Present Illness Chief Complaint: Anxiety Narrative Narrative: Chief complaint and HPI: Anxiety and episodic panic attacks. 28-year-old female with past medical history of anxiety and depression presents for evaluation of anxiety and episodic panic attacks. Patient states that she has been having increase anxiety. She states she was started on fluoxetine as well as hydroxyzine approximately 4 weeks ago for her symptoms. Patient states she is still having intermittent anxiety as well as panic attacks. Panic attacks are random and not specifically related to an incident or event. She has noticed that her anxiety is worse while driving. She denies any tearfulness, depression, suicidal ideation, homicidal ideation, visual or auditory hallucinations. Patient states that her anxiety and episodic panic attacks are causing difficulty with work. She does not follow with a psychiatrist. Patient states she had a panic attack earlier this morning in which she took hydroxyzine. She denies any fever, chills, shortness of breath, chest pain, abdominal pain, nausea, vomiting. States while driving she has been having intermittent and ear popping but no pain. Review of systems: See HPI Medications: As listed on the chart Allergies: As listed on the chart PFSH: Per chart Vital signs: As listed on the chart. Reviewed. Physical exam: Gen: A O x3, NAD Head: Normocephalic, atraumatic Eyes: No sclera icterus, conjunctiva clear, PERRL, EOMI ENT: TMs clear BL, moist mucous membranes, no nasal congestion Neck: Trachea midline, full range of motion Resp: Lungs CTA BL, no w/r/c Musc: Full ROM, no deformity Skin: Warm Neuro: Alert, oriented, grossly intact, sensation intact Psych: Cooperative, mildly anxious PFSH PFSH Medical History Abdominal pain Abnormal weight loss Allergic rhinitis Anxiety and depression Chest pain Fatigue Frequent headaches Headache Hypokalemia Paresthesia Rectal bleeding Home Medications ???Medication ???Instructions ???Recorded ???Last Taken ???Type fluoxetine 10 mg tablet 10 mg PO DAILY 06/10/24 Unknown Hi story hydroxyzine HCl 10 mg tablet 10 mg PO TID PRN PRN anxiety 06/10 Unknown History Allergy/AdvReac Type Severity Reaction Status Date / Time No Known Allergies Allergy Verified 06/10/24 08:30 Family History Unknown No problems noted. Father Hypertension Social History Smoking Status: Current every day smoker tobacco type: e-cigarettes EXAM Physical Exam Const Vital Signs: 06/10/24 08:28 Temperature 98.1 F Temperature Source Temporal Pulse Rate 68 Respiratory Rate 15 Blood Pressure 134/79 H Blood Pressure Mean 97 Pulse Ox 100 Oxygen Delivery Method Room Air MDM MDM MDM Narrative Medical decision making narrative: 28-year-old female with past medical history of anxiety and depression presents for evaluation of anxiety and episodic panic attacks. Differential diagnosis includes but is not limited to generalized anxiety, panic attacks, depression. On presentation vitals are stable other than mild hypertension. Patient is alert and oriented and in no acute distress. On physical exam she is not in a panic attack but is mildly anxious. Given that patient was recently started on fluoxetine and hydroxyzine will not increase dosing as it is only been 4 weeks. It takes 4 to 6 weeks to become therapeutic. She is on low-dose of fluoxetine. Patient does not follow with a psychiatrist or counselor. I did want to consult my social work however they are not present until 10 AM. Instead, patient will be referred to a psychiatrist as well as the counseling center for outpatient resources. Follow-up with her primary care physician. She was given Ativan here in the emergency room. She is not driving today. Will be given a work note for the next few days until she feels that her anxiety has improved. She was educated on [id number] allergy medicine for her intermittent ear popping/eustachian tube dysfunction. Impression: 1. Anxiety 2. Panic attacks 3. Eustachian tube dysfunction Discharge Plan Triage Chief Complaint: Anxiety ED Provider: Cordell Lenz Dx/Rx/DC Orders Prescriptions: No Action fluoxetine 10 mg tablet 10 mg PO DAILY hydroxyzine HCl 10 mg tablet 10 mg PO TID PRN PRN (Reason: anxiet (more content not included)... Normal [facility] US Pelvison 06-06-2024 Indication pelvic pain, history of cysts Impression The uterus is anteflexed and measures 72 mm x 27 mm x 39 mm. The myometrium is asymmetrically thickened, heterogeneous but no obvious fibroids are observed. This finding is suggestive of adenomyosis. The endometrial thickness is 6.9 mm. The right ovary measures 30 mm x 21 mm x 19 mm. The left ovary measures 35 mm x 28 mm x 18 mm and contains a left hemorrhagic corpus luteum cyst. There is a left unilocular simple paraovarian/paratuba l cyst that measures 6.3 mm x 6.2 mm x 5.5 mm. There is no free fluid visualized. Recommendations Simple paraovarian/paratuba l cyst, no follow up imaging is needed. Ultrasound findings suggestive for adenomyosis. Clinical correlation is recommended. Menstrual History LMP on 05/18/2024. Cycle: irregular cycle. Contraception: none Method Transabdominal, transvaginal, 3D ultrasound examination, Color Doppler examination. View: Adequate visualization Uterus Uterus: Visualized Uterus position: anteflexed Description of uterine malformations: none Myometrium: asymmetrically thickened, heterogeneous Endometrium: homogenous Cervix details: normal Uterus length 72 mm Uterus width 39 mm Uterus height 27 mm Uterus Vol 39.2 cm Endometrial thickness, total 6.9 mm Fibroids: No fibroids identified Polyps: No polyps identified Right Ovary Rt ovary: Visualized Rt ovary morphology: premenopausal normal follicular Rt ovary D1 30 mm Rt ovary D2 21 mm Rt ovary D3 19 mm Rt ovary Vol 6.2 cm Rt ovarian cyst(s): No cysts identified Left Ovary Lt ovary: Visualized Lt ovary D1 35 mm Lt ovary D2 28 mm Lt ovary D3 18 mm Lt ovary Vol 8.8 cm Lt ovarian corpus luteum: hemorrhagic Lt ovarian corpus luteum D1 16.6 mm Lt ovarian corpus luteum D2 16.2 mm Lt ovarian corpus luteum D3 11.7 mm Left Adnexal Mass Findings: unilocular cyst. Size 6.3 mm x 6.2 mm x 5.5 mm. Mean 6.0 mm. Vol 0.112 cm . Findings consistent with a para-ovarian cyst Cul de Sac Visualized. no free fluid visualized Performed By: Chelsea Jenkins RDMS Read By: Fadumo Clark M.D. MATERNAL MEDICINE [facility] US Pelvison 06-04-2024 Radiology Study observation (narrative) [facility] Absolute lymphocyte countOrd ered By: Mary Jones on 05-29-2024 Lymphocytes Auto (Unsp spec) [#/Vol] 1.68 10*3/uL 0.83-4.51 [facility] Absolute neutrophil countOrd ered By: Mary Jones on 05-29-2024 Neutrophils (Bld) [#/Vol] 4.9 10*3/uL 2.0-7.7 [facility] Automated lymphocyte count a s percentage of total leukocytesOrdered By: Mary Jones on 05-29-2024 Lymphocytes/100 WBC Auto (Unsp spec) 23.6 % 19- [facility] BUN/creatinine ratioOrdered By: Mary Jones on 05-29-2024 Urea nitrogen/Creatinine [Mass ratio] 13.1 mg/mg 10-20 [facility] Basophil percentageOrdered B y: Mary Jones on 05-29-2024 Basophils/100 WBC (Bld) 1.0 % 0-1 [facility] Bilirubin, totalOrdered By: Mary Jones on 05-29-2024 Bilirubin [Mass/Vol] 0.24 mg/dL 0.00-1.30 [facility] CBC W/Diff, Automatedon 05-03 Absolute Lymph 1.68 X10 3/uL Normal 0.83-4.51 [facility] Comment on above: Order Comment: Order Date: 05/22/24 Order Info: 0184-1 - CBCD Performed By: #### L 100.0100, L500.4050, L501.9520, L506.0400 #### [facility] [address] [place], [address] Absolute Neut 4.9 X10 3/uL Normal 2.0-7.7 [facility] Comment on above: Order Comment: Order Date: 05/22/24 Order Info: 0184-1 - CBCD Performed By: #### L 100.0100, L500.4050, L501.9520, L506.0400 #### [facility] [address] [place], [address] Basophils/100 WBC (Bld) 1.0 % Normal 0-1 [facility] Comment on above: Order Comment: Order Date: 05/22/24 Order Info: 0184-1 - CBCD Performed By: #### L 100.0100, L500.4050, L501.9520, L506.0400 #### [facility] [address] [place], [address] Eosinophils/100 WBC (Bld) 0.7 % Normal 0-5 [facility] Comment on above: Order Comment: Order Date: 05/22/24 Order Info: 0184-1 - CBCD Performed By: #### L 100.0100, L500.4050, L501.9520, L506.0400 #### [facility] [address] [place], [address] Erythrocyte distribution width (RBC) [Ratio] 12.3 % Normal 11.6-14.6 [facility] Comment on above: Order Comment: Order Date: 05/22/24 Order Info: 0184- - CBCD Performed By: #### L 100.0100, L500.4050, L501.9520, L506.0400 #### [facility] [address] [place], [address] Hematocrit (Bld) [Volume fraction] 41.2 % Normal 37-47 [facility] Comment on above: Order Comment: Order Date: 05/22/24 Order Info: 0184- - CBCD Performed By: #### L 100.0100, L500.4050, L501.9520, L506.0400 #### [facility] [address] [place], [address] Hemoglobin (Bld) [Mass/Vol] 14.0 g/dL Normal 12.0-15.0 [facility] Comment on above: Order Comment: Order Date: 05/22/24 Order Info: 0184- - CBCD Performed By: #### L 100.0100, L500.4050, L501.9520, L506.0400 #### [facility] [address] [place], [address] IG% 0.300 Normal 0.0-0.9 [facility] Comment on above: Order Comment: Order Date: 05/22/24 Order Info: 0184-1 - CBCD Result Comment: IG% - Immature Granulocytes (promyelocytes, myelocytes and metamyelocytes) > 1% indicates that a LEFT SHIFT is Present. Performed By: #### L 100.0100, L500.4050, L501.9520, L506.0400 #### [facility] [address] [place], [address] Lymphocytes/100 WBC (Bld) 23.6 % Normal 19-41 [facility] Comment on above: Order Comment: Order Date: 05/22/24 Order Info: 0184-1 - CBCD Performed By: #### L 100.0100, L500.4050, L501.9520, L506.0400 #### [facility] [address] [place], [address] MCH (RBC) [Entitic mass] 32.8 pg High 27.0-32.0 [facility] Comment on above: Order Comment: Order Date: 05/22/24 Order Info: 018- - CBCD Performed By: #### L 100.0100, L500.4050, L501.9520, L506.0400 #### [facility] [address] [place], [address] MCHC (RBC) [Mass/Vol] 34.0 g/dL Normal 32-36 [facility] Comment on above: Order Comment: Order Date: 05/22/24 Order Info: 018- - CBCD Performed By: #### L 100.0100, L500.4050, L501.9520, L506.0400 #### [facility] [address] [place], [address] MCV (RBC) [Entitic vol] 96.5 fL Normal 81-99 [facility] Comment on above: Order Comment: Order Date: 05/22/24 Order Info: 0184-1 - CBCD Performed By: #### L 100.0100, L500.4050, L501.9520, L506.0400 #### [facility] [address] [place], [address] Monocytes/100 WBC (Bld) 5.6 % Normal 0-10 [facility] Comment on above: Order Comment: Order Date: 05/22/24 Order Info: 0184-1 - CBCD Performed By: #### L 100.0100, L500.4050, L501.9520, L506.0400 #### [facility] [address] [place], [address] Neutrophils/100 WBC (Bld) 68.8 % Normal 47-70 [facility] Comment on above: Order Comment: Order Date: 05/22/24 Order Info: 0184-1 - CBCD Performed By: #### L 100.0100, L500.4050, L501.9520, L506.0400 #### [facility] [address] [place], [address] Nucleated RBC (Bld) [#/Vol] 0 10*3/uL Normal 0-5 [facility] Comment on above: Order Comment: Order Date: 05/22/24 Order Info: 0184-1 - CBCD Performed By: #### L 100.0100, L500.4050, L501.9520, L506.0400 #### [facility] [address] [place], [address] Platelet mean volume (Bld) [Entitic vol] 9.9 fL Normal 6.2-12.0 [facility] Comment on above: Order Comment: Order Date: 05/22/24 Order Info: 0184-1 - CBCD Performed By: #### L 100.0100, L500.4050, L501.9520, L506.0400 #### [facility] [address] [place], [address] Platelets (Bld) [#/Vol] 303 10*3/uL Normal 150-450 [facility] Comment on above: Order Comment: Order Date: 05/22/24 Order Info: 0184-1 - CBCD Performed By: #### L 100.0100, L500.4050, L501.9520, L506.0400 #### [facility] [address] [place], [address] RBC (Bld) [#/Vol] 4.27 10*6/uL Normal 4.2-5.4 [facility] Comment on above: Order Comment: Order Date: 05/22/24 Order Info: 0184-1 - CBCD Performed By: #### L 100.0100, L500.4050, L501.9520, L506.0400 #### [facility] [address] [place], [address] RDW SD 43.5 fl Normal 35.1-43.9 [facility] Comment on above: Order Comment: Order Date: 05/22/24 Order Info: 0184-1 - CBCD Performed By: #### L 100.0100, L500.4050, L501.9520, L506.0400 #### [facility] [address] [place], [address] WBC (Bld) [#/Vol] 7.1 10*3/uL Normal 4.4-11.[address] [facility] Comment on above: Order Comment: Order Date: 05/22/24 Order Info: 0184-1 - CBCD Performed By: #### L 100.0100, L500.4050, L501.9520, L506.0400 #### [facility] [address] [place], [address] Carbon dioxide measurementOr dered By: Mary Jones on 05-29-2024 CO2 [Moles/Vol] 24.4 mmol/L 22.0-29.0 [facility] Chloride measurementOrdered By: Mary Jones on 05-29-2024 Chloride [Moles/Vol] 101 mmol/L 96-108 [facility] Comprehensive Metabolic Prof ilon 05-29-2024 Albumin [Mass/Vol] 4.2 g/dL Normal 3.5-5.[address] [facility] Comment on above: Order Comment: Order Date: 05/22/24 Order Info: 0786-1 - CMP Order Info: 3015-3 - TSH Order Info: 3023-7 - T4F Performed By: #### L 100.0100, L500.4050, L501.9520, L506.0400 #### [facility] [address] [place], [address] Albumin/Globulin [Mass ratio] 1.6 {ratio} Normal 0.9-2.4 [facility] Comment on above: Order Comment: Order Date: 05/22/24 Order Info: 0786-1 - CMP Order Info: 3 - TSH Order Info: 7 - T4F Performed By: #### L 100.0100, L500.4050, L501.9520, L506.0400 #### [facility] [address] [place], [address] ALK PHOS 63 U/L Normal 35-104 [facility] Comment on above: Order Comment: Order Date: 05/22/24 Order Info: 0786-1 - CMP Order Info: 3015-3 - TSH Order Info: 7 - T4F Performed By: #### L 100.0100, L500.4050, L501.9520, L506.0400 #### [facility] [address] [place], [address] ALT [Catalytic activity/Vol] 18 U/L Normal <=34 [facility] Comment on above: Order Comment: Order Date: 05/22/24 Order Info: 0786-1 - CMP Order Info: 6-3 - TSH Order Info: 3024-7 - T4F Performed By: #### L 100.0100, L500.4050, L501.9520, L506.0400 #### [facility] [address] [place], [address] Anion gap [Moles/Vol] 14 mmol/L Normal 5-15 [facility] Comment on above: Order Comment: Order Date: 05/22/24 Order Info: 0786-1 - CMP Order Info: 3 - TSH Order Info: 3023-7 - T4F Performed By: #### L 100.0100, L500.4050, L501.9520, L506.0400 #### [facility] [address] [place], [address] AST [Catalytic activity/Vol] 21 U/L Normal <=31 [facility] Comment on above: Order Comment: Order Date: 05/22/24 Order Info: 0786-1 - CMP Order Info: 3015-3 - TSH Order Info: 7 - T4F Performed By: #### L 100.0100, L500.4050, L501.9520, L506.0400 #### [facility] [address] [place], [address] Bilirubin [Mass/Vol] 0.24 mg/dL Normal 0.00-1.30 [facility] Comment on above: Order Comment: Order Date: 05/22/24 Order Info: 07-1 - CMP Order Info: 3 - TSH Order Info: 7 - T4F Performed By: #### L 100.0100, L500.4050, L501.9520, L506.0400 #### [facility] [address] [place], [address] BUN/CRE 13.1 RATIO Normal 10-20 [facility] Comment on above: Order Comment: Order Date: 05/22/24 Order Info: 0786-1 - CMP Order Info: 6-3 - TSH Order Info: 3024-7 - T4F Performed By: #### L 100.0100, L500.4050, L501.9520, L506.0400 #### [facility] [address] [place], [address] Calcium [Mass/Vol] 9.5 mg/dL Normal 7.6-11.[address] [facility] Comment on above: Order Comment: Order Date: 05/22/24 Order Info: 0786-1 - CMP Order Info: 3 - TSH Order Info: 7 - T4F Performed By: #### L 100.0100, L500.4050, L501.9520, L506.0400 #### [facility] [address] [place], [address] Chloride [Moles/Vol] 101 mmol/L Normal 96-108 [facility] Comment on above: Order Comment: Order Date: 05/22/24 Order Info: 0786-1 - CMP Order Info: 3 - TSH Order Info: 7 - T4F Performed By: #### L 100.0100, L500.4050, L501.9520, L506.0400 #### [facility] [address] [place], [address] CO2 [Moles/Vol] 24.4 mmol/L Normal 22.0-29.0 [facility] Comment on above: Order Comment: Order Date: 05/22/24 Order Info: 07-1 - CMP Order Info: 3 - TSH Order Info: 7 - T4F Performed By: #### L 100.0100, L500.4050, L501.9520, L506.0400 #### [facility] [address] [place], [address] Creatinine [Mass/Vol] 0.83 mg/dL Normal 0.70-1.20 [facility] Comment on above: Order Comment: Order Date: 05/22/24 Order Info: 0786-1 - CMP Order Info: 3 - TSH Order Info: 302-7 - T4F Performed By: #### L 100.0100, L500.4050, L501.9520, L506.0400 #### [facility] [address] [place], [address] GFR/1.73 sq M.predicted among non-blacks MDRD (S/P/Bld) [Vol rate/Area] 98 mL/min/{1.73_m2} Normal >60 [facility] Comment on above: Order Comment: Order Date: 05/22/24 Order Info: 0786-1 - CMP Order Info: 3015-3 - TSH Order Info: 3024-7 - T4F Result Comment: mL/m in/1.73m2 CKD-EPI Creatinine Equation (2020) Performed By: #### L 100.0100, L500.4050, [id number], L506.0400 #### [facility] [address] [place], [address] Globulin (S) [Mass/Vol] 2.7 g/dL Normal 2.2-4.2 [facility] Comment on above: Order Comment: Order Date: 05/22/24 Order Info: 0786-1 - CMP Order Info: 3 - TSH Order Info: 3027 - T4F Performed By: #### L 100.0100, L500.4050, [id number], L506.0400 #### [facility] [address] [place], [address] Glucose [Mass/Vol] 85 mg/dL Normal 70-[address] [facility] Comment on above: Order Comment: Order Date: 05/22/24 Order Info: 0786-1 - CMP Order Info: 3 - TSH Order Info: 302-7 - T4F Performed By: #### L 100.0100, L500.4050, L501.9520, L506.0400 #### [facility] [address] [place], [address] Potassium [Moles/Vol] 3.9 mmol/L Normal 3.3-5.1 [facility] Comment on above: Order Comment: Order Date: 05/22/24 Order Info: 0786-1 - CMP Order Info: 3 - TSH Order Info: 3024-7 - T4F Performed By: #### L 100.0100, L500.4050, [id number], L506.0400 #### [facility] [address] [place], [address] Sodium [Moles/Vol] 140 mmol/L Normal 133-[address] [facility] Comment on above: Order Comment: Order Date: 05/22/24 Order Info: 0786-1 - CMP Order Info: 6-3 - TSH Order Info: 7 - T4F Performed By: #### L 100.0100, [id number], [id number], L506.0400 #### [facility] [address] [place], [place], [address] T PROT 6.9 g/dL Normal 5.9-8.4 [facility] Comment on above: Order Comment: Order Date: 05/22/24 Order Info: 0786-1 - CMP Order Info: 3 - TSH Order Info: 7 - T4F Performed By: #### L 100.0100, L500.4050, [id number], L506.0400 #### [facility] [address] [place], [place], [address] Urea nitrogen [Mass/Vol] 11 mg/dL Normal 4-19 [facility] Comment on above: Order Comment: Order Date: 05/22/24 Order Info: 0786-1 - CMP Order Info: 3015-3 - TSH Order Info: 7 - T4F Performed By: #### L 100.0100, L500.4050, [id number], L506.0400 #### [facility] [address] [place], [address] Eosinophil percentageOrdered By: Mary Jones on 05-29-2024 Eosinophils/100 WBC (Bld) 0.7 % 0-5 [facility] Erythrocyte distribution wid th ratioOrdered By: Mary Jones on 05-29-2024 Erythrocyte distribution width (RBC) [Ratio] 12.3 % 11.6-14.6 [facility] Erythrocyte distribution wid th standard deviationOrdered By: Mary Jones on 05-29-2024 Erythrocyte distribution width (RBC) [Entitic vol] 43.5 fL 35.1-43.9 [facility] Erythrocyte distribution width (RBC) [Ratio] 43.5 fl 35.1-43.9 [facility] GFR/1.73 sq M.predicted autumn g non-blacks MDRD (S/P/Bld) [Vol rate/Area]Ordered By: Mary Jones on 05-29-2024 Estimated GFR (MDRD) Non-Af Amer 98 >60 [facility] Comment on above: mL/min/1.73m2 CKD-EP I Creatinine Equation (2020) Glomerular filtration rate ( GFR) estimation/1.73 sq m using serum, plasma, or whole bOrdered By: Mary Jones on 05-29-2024 GFR/1.73 sq M.predicted among non-blacks MDRD (S/P/Bld) [Vol rate/Area] 98 mL/min/{1.73_m2} >60 [facility] Comment on above: mL/min/1.73m2 CKD-EP I Creatinine Equation (2020) Hematocrit Auto (Bld) [Volum e fraction]Ordered By: Mary Jones on 05-29-2024 Hematocrit (Bld) [Volume fraction] 41.2 % 37-47 [facility] Hemoglobin measurementOrdere d By: Mary Jones on 05-29-2024 Hemoglobin (Bld) [Mass/Vol] 14.0 g/dL 12.0-15.0 [facility] Immature granulocytes/100 WB C Auto (Bld)Ordered By: Mary Jones on 05-29-2024 Immature granulocytes/100 WBC (Bld) 0.300 % 0.0-0.9 [facility] Comment on above: IG% - Immature Granu locytes (promyelocytes, myelocytes and metamyelocytes) > 1% indicates that a LEFT SHIFT is Present. L506.1001on 05-29-2024 Vitamin D 25-OH 70.6 ng/mL Normal 30-100 [facility] Comment on above: Order Comment: Order Date: 05/22/24Order Info: 0786-1 - CMPOrder Info: 3016-3 - TSHOrder Info: 3024-7 - T4F Result Comment: Shanon min D Status Deficiency: <20 ng/mL (50nmol/L) Insufficiency: 20-30 ng/mL (50-75 nmol/L) Sufficiency: 30-100 ng/mL (75-250 nmol/L) Toxicity: >100 ng/mL (>250 nmol/L) Performed By: #### L 506.1001 ####[facility] [id number] [place], [address] Laboratory - Chemistry and C hemistry - challengeOrdered By: Mary Jones on 05-29-2024 AST [Catalytic activity/Vol] 21 U/L <32 [facility] Lymphocytes Auto (Unsp spec) [#/Vol]Ordered By: Mary Jones on 05-29-2024 Lymphocytes (Bld) [#/Vol] 1.68 10*3/uL 0.83-4.51 [facility] Lymphocytes/100 WBC Auto (Un sp spec)Ordered By: Mary Jones on 05-29-2024 Lymphocytes/100 WBC (Bld) 23.6 % 19-41 [facility] MCV (mean corpuscular volume ) determinationOrdered By: Mary Jones on 05-29-2024 MCV (RBC) [Entitic vol] 96.5 fL 81-99 [facility] Mean corpuscular hemoglobin (MCH) determinationOrdered By: Mary Jones on 05-29-2024 MCH (RBC) [Entitic mass] 32.8 pg High 27.0-32.0 [facility] Mean corpuscular hemoglobin concentration (MCHC) determinationOrdered By: Mary Jones on 05-29-2024 MCHC (RBC) [Mass/Vol] 34.0 g/dL 32-36 [facility] Mean platelet volume determi nationOrdered By: Mary Jones on 05-29-2024 Platelet mean volume (Bld) [Entitic vol] 9.9 fL 6.2-12.0 [facility] Monocyte percentageOrdered B y: Mary Jones on 05-29-2024 Monocytes/100 WBC (Bld) 5.6 % 0-10 [facility] Neutrophil percentageOrdered By: Mary Jones on 05-29-2024 Neutrophils/100 WBC (Bld) 68.8 % 47-70 [facility] Nucleated red blood cell per centageOrdered By: Mary Jones on 05-29-2024 Nucleated RBC/100 WBC (Bld) [Ratio] 0 % 0-5 [facility] Platelet countOrdered By: Rich Jones on 05-29-2024 Platelets (Bld) [#/Vol] 303 10*3/uL 150-450 [facility] RBC Auto (Bld) [#/Vol]Ordere d By: Mary Jones on 05-29-2024 RBC (Bld) [#/Vol] 4.27 10*6/uL 4.2-5.4 [facility] Serum creatinine measurement (mass/volume)Ordered By: Mary Jones on 05-29-2024 Creatinine [Mass/Vol] 0.83 mg/dL 0.70-1.20 [facility] Serum globulin measurementOr dered By: Mary Jones on 05-29-2024 Globulin (S) [Mass/Vol] 2.7 g/dL 2.2-4.[address] [facility] Serum glucose measurement (m ass/volume)Ordered By: Mary Jones on 05-29-2024 Glucose [Mass/Vol] 85 mg/dL 70-[address] [facility] Serum or plasma alanine haley otransferase (ALT) measurementOrdered By: Mary Jones on 05-29-2024 ALT [Catalytic activity/Vol] 18 U/L <35 [facility] Serum or plasma albumin demi urement (mass/volume)Ordered By: Mary Jones on 05-29-2024 Albumin [Mass/Vol] 4.2 g/dL 3.5-5.[address] [facility] Serum or plasma albumin/glob ulin mass ratioOrdered By: Mary Jones on 05-29-2024 Albumin/Globulin [Mass ratio] 1.6 {ratio} 0.9-2.4 [facility] Serum or plasma alkaline mae sphatase measurementOrdered By: Mary Jones on 05-29-2024 ALP [Catalytic activity/Vol] 63 U/L 35-104 [facility] Serum or plasma anion gap de termination (moles/volume)Ordered By: Mary Jones on 05-29-2024 Anion gap [Moles/Vol] 14 mmol/L 5-15 [facility] Serum or plasma calcium demi urement (mass/volume)Ordered By: Mary Jones on 05-29-2024 Calcium [Mass/Vol] 9.5 mg/dL 7.6-11.[address] [facility] Serum or plasma potassium me asurementOrdered By: Mary Jones on 05-29-2024 Potassium [Moles/Vol] 3.9 mmol/L 3.3-5.1 [facility] Serum or plasma sodium measu rement (moles/volume)Ordered By: Mary Jones on 05-29-2024 Sodium [Moles/Vol] 140 mmol/L 133-[address] [facility] Serum or plasma urea nitroge n measurement (mass/volume)Ordered By: Mary Jones on 05-29-2024 Urea nitrogen [Mass/Vol] 11 mg/dL 4-19 [facility] T4 Free Directon 05-29-2024 T4 FREE DIRECT 1.20 ng/dL Normal 0.76-1.46 [facility] Comment on above: Order Comment: Order Date: 05/22/24Order Info: 0786-1 - CMPOrder Info: 3016-3 - TSHOrder Info: 3024-7 - T4F Performed By: #### L 100.0100, L500.4050, L501.9520, L506.0400 ####[facility] [id number] [place], [place], [address] T4 freeOrdered By: Mary cooper on 05-29-2024 Free T4 [Mass/Vol] 1.20 ng/dL 0.76-1.[address] [facility] TSH DL <= 0.005 mIU/L QnOrde red By: Mary Jones on 05-29-2024 Thyroid Stimulating Hormone (TSH) 0.651 uIU/mL 0.300-4.200 [facility] TSH Qn 0.651 uIU/mL 0.300-4.200 [facility] Thyroid Stim Hormone (TSH)on 05-29-2024 TSH 0.651 uIU/mL Normal 0.300-4.200 [facility] Comment on above: Order Comment: Order Date: 05/22/24 Order Info: 0786-1 - CMP Order Info: 3016-3 - TSH Order Info: 3024-7 - T4F Performed By: #### L 100.0100, L500.4050, L501.9520, L506.0400 #### [facility] [address] [place], [address] Total proteinOrdered By: Stephania Jones on 05-29-2024 Protein [Mass/Vol] 6.9 g/dL 5.9-8.[address] [facility] Vitamin D, 25-hydroxyOrdered By: Mary Jones on 05-29-2024 Vitamin D 25-Hydroxy 70.6 ng/mL 30-100 [facility] Comment on above: Vitamin D StatusDefi ciency: <20 ng/mL (50nmol/L)Insufficiency: 20-30 ng/mL (50-75 nmol/L)Sufficiency: 30-100 ng/mL (75-250 nmol/L)Toxicity: >100 ng/mL (>250 nmol/L) White blood cell (WBC) count Ordered By: Mary Jones on 05-29-2024 WBC (Bld) [#/Vol] 7.1 10*3/uL 4.4-11.[address] [facility] CNOVon 05-21-2024 CNOV Office Visit (OBGYWM) CHANTE HAZEL ([id number]) 1995 F Date Time Provider Department 05/21/24 4:00 PM AMITA LOVE OBVU During your visit today, we recorded the following information about you: Blood pressure Weight Height Last Period 112/66 64 kg 1.676 m 05/18/24 Amita Love APRN.NUCLEAR WORKER TECHNICIAN 05/21/2024 4:40 PM Signed Resource Engineer offered: Patient declines. Chante is a 28 year old who presents for an annual gynecologic exam with complaints, irregular bleeding and pelvic pain. In Apr she had 3 periods and is being having right side pelvic pain. Menses: cycles every 25-30 days and 4-5 days of flow. Contraception: none HPV vaccine: Yes Last Pap: 04/30/2022 normal HPV: N/A History of abnormal pap: No Last mammogram: never Sexually active: Yes Pain with intercourse: No Postcoital bleeding: No OB History Gravida0 Para0 Term0 Preterm0 AB0 Living0 SAB0 IAB0 Ectopic0 Multiple0 Live Births0 Silver Solution Mixer History LMP: 05/18/2024 (Exact Date), Having periods Age at Menarche: 13 Age at First : Age at Menopause: Silver Solution Mixer History Comments: Sexual Activity: Yes; Male Contraception: None Menstrual Tracking History Flowsheet Row Office Visit from 05/21/2024 in OB/Gynecology Period Duration (Days) 6 Menstrual Flow Moderate PAST MEDICAL HISTORY Diagnosis Date Anxiety and depression 04/04/2022 Coitus painful for female DYSMENORRHEA Ovarian cyst PAST SURGICAL HISTORY Procedure Laterality Date MOLDING OF EAR 03/06/2018 Bilateral ears stretched FAMILY HISTORY Problem Relation Age of Onset None Mother Gall Stones Father Hypertension Father Heart Father other (obesity) Father Gall Stones Sister No Known Problems Brother Osteoporosis Maternal Grandmother Diabetes Maternal Grandfather Liver Cancer Maternal Grandfather other (obesity) Paternal Grandmother Heart Paternal Grandfather SOCIAL HISTORY Social History Tobacco Use Smoking status: Former Current packs/day: 0.50 Average packs/day: 0.5 packs/day for 1 year (0.5 ttl pk-yrs) Types: Cigarettes Passive exposure: Never Smokeless tobacco: Never Tobacco comments: vape Vaping Use Vaping status: current everyday user Substances: Nicotine, Flavoring Devices: Disposable Substance Use Topics Alcohol use: Not Currently Drug use: Never REVIEW OF SYSTEMS Abdomen: No abdominal pain, nausea, vomiting, diarrhea, or constipation. No bloating, early satiety, indigestion, or increased flatulence. Bladder: No dysuria, gross hematuria, urinary frequency, urinary urgency, or incontinence. Breast: No breast lumps, nipple d/c, overlying skin changes, redness or skin retraction. Allergies and current medication updated:Yes SENSITIVE EXAM: The sensitive examination was discussed with the Patient or Patient's Authorized Scrap Bunch Maker. As applicable, any other physician, advance practice provider, medical student, or other health professional student that will be observing or involved in the sensitive examination for educational or training purposes was discussed with the Patient or Authorized Scrap Bunch Maker. The Patient or Authorized Scrap Bunch Maker has agreed to proceed with the sensitive examination. (Sensitive examination includes inspection and/or palpation of the breasts, pelvis, prostate and anorectal regions). EXAM: BP 112/66 Ht 5' 6 (1.68m) Wt 141 lb (64.0kg) LMP 05/18/2024 BMI 22.77 kg/(m2). GENERAL: pleasant, female in no apparent distress HEENT: Normocephalic, atraumatic, mucus membranes moist, and no lesions DERMATOLOGY: Normal, without lesions, non-icteric, and non-hirsute BREAST: soft, non-tender, symmetric, no dominant mass, normal nipple-areolar complex, no lymphadenopathy, and no nipple discharge CHEST: Normal inspiratory effort ABDOMEN: soft, non-tender, and no masses PELVIC: external genitalia normal, normal Bartholin's glands, urethra, Attapulgus's glands, no vulvar lesions, no cervical lesions, good vaginal support, physiologic discharge present, normal appearing perineal body and perianal region BIMANUAL: uterus normal size, shape and consistency, no adnexal masses, and non-tender RECTOVAGINAL: deferred. NEURO: alert and oriented x3,exam grossly non-focal EXTREMITIES: normal ASSESSMENT/PLAN: 1) Health maintenance: Pap/HPV up to date. Mammogram starting age 40. Nutrition, exercise and routine health maintenance exams reviewed. Calcium/Vitamin D supplementation information provided. Colon cancer screening: start at age 45 2) Contraception: none. Contraceptive options reviewed and information provided. 3) STD screening: Declined STD check. 4) Follow up one year or sooner as needed 5) Pelvic US for irregular bleeding and pain Amita Love APRN.NUCLEAR WORKER TECHNICIAN Allergies As of Date: 05/21/2024 (No Known Allergies) Date Reviewed: 05/21/2024 Reviewed by: Babita (more content not included)... Normal [facility] Absolute lymphocyte countOrd ered By: Mary Jones on 10-29-2022 Lymphocytes Auto (Unsp spec) [#/Vol] 1.73 10*3/uL 0.83-4.51 [facility] Basophil percentageOrdered B y: Carmelitacarie Robert on 10-29-2022 Basophils/100 WBC (Bld) 0.9 % 0-1 [facility] Eosinophils/100 WBC (Bld) 2.0 % 0-5 [facility] Neutrophils (Bld) [#/Vol] 3.2 10*3/uL 2.0-7.7 [facility] Neutrophils/100 WBC (Bld) 58.7 % 47-70 [facility] WBC (Bld) [#/Vol] 5.5 10*3/uL 4.4-11.[address] [facility] Blood erythrocytes count (nu mber/volume)Ordered By: Mary Jones on 10-29-2022 RBC (Bld) [#/Vol] 4.31 10*6/uL 4.2-5.4 [facility] Blood hemoglobin measurement (mass/volume)Ordered By: Mary Jones on 10-29-2022 Hemoglobin (Bld) [Mass/Vol] 13.6 g/dL 12.0-15.0 [facility] Blood lymphocytes/100 leukoc ytesOrdered By: Mary Jones on 10-29-2022 Lymphocytes/100 WBC (Bld) 31.5 % 19-41 [facility] Blood monocytes/100 leukocyt esOrdered By: Mary Jones on 10-29-2022 Monocytes/100 WBC (Bld) 6.7 % 0-10 [facility] Blood platelet mean volumeOr dered By: Mary Jones on 10-29-2022 Platelet mean volume (Bld) [Entitic vol] 9.9 fL 6.2-12.0 [facility] Determination of erythrocyte mean corpuscular volume (MCV)Ordered By: Mary Jones on 10-29-2022 MCV (RBC) [Entitic vol] 94.2 fL 81-99 [facility] Hematocrit Auto (Bld) [Volum e fraction]Ordered By: Mary Jones on 10-29-2022 Hematocrit (Bld) [Volume fraction] 40.6 % 37-47 [facility] - Hematology and Cell countsOrdered By: Mary Jones on 10-29-2022 Erythrocyte distribution width (RBC) [Entitic vol] 42.0 fL 35.1-43.9 [facility] Erythrocyte distribution width (RBC) [Ratio] 12.1 % 11.6-14.6 [facility] Immature granulocytes/100 WBC (Bld) 0.200 % 0.0-0.9 [facility] Comment on above: IG% - Immature Granu locytes (promyelocytes, myelocytes and metamyelocytes) > 1% indicates that a LEFT SHIFT is Present. MCH (RBC) [Entitic mass] 31.6 pg 27.0-32.0 [facility] Nucleated RBC/100 WBC (Bld) [Ratio] 0 % 0-5 [facility] MCHC Auto (RBC) [Mass/Vol]Or dered By: Mary Jones on 10-29-2022 MCHC (RBC) [Mass/Vol] 33.5 g/dL 32-36 [facility] Platelets bldOrdered By: Stephania Jones on 10-29-2022 Platelets (Bld) [#/Vol] 240 10*3/uL 150-450 [facility] Serum or plasma cortisol martha surement (mass/volume)Ordered By: Mary Jones on 10-29-2022 Cortisol [Mass/Vol] 22.50 ug/dL 3.44-22.45 [facility] Comment on above: Adult (AM) 5.27 - 22 .45 ug/dL Adult (PM) 3.44 - 16.76 ug/dLPlease note revised CORTISOL reference range effective 2019. Absolute lymphocyte countOrd ered By: Dr. Gardner on 09-24-2022 Lymphocytes Auto (Unsp spec) [#/Vol] 1.49 10*3/uL 0.83-4.51 [facility] Basophil percentageOrdered B y: Dr. Gardner on 09-24-2022 Basophils/100 WBC (Bld) 0.8 % 0-1 [facility] Chloride [Moles/Vol] 110 mmol/L 98-107 [facility] Eosinophils/100 WBC (Bld) 1.0 % 0-5 [facility] Glucose [Mass/Vol] 81 mg/dL 74-[address] [facility] Neutrophils (Bld) [#/Vol] 3.2 10*3/uL 2.0-7.7 [facility] Neutrophils/100 WBC (Bld) 62.4 % 47-70 [facility] Potassium [Moles/Vol] 4.1 mmol/L 3.5-5.1 [facility] Sodium [Moles/Vol] 140 mmol/L 136-[address] [facility] WBC (Bld) [#/Vol] 5.2 10*3/uL 4.4-11.[address] [facility] Blood erythrocytes count (nu mber/volume)Ordered By: Dr. Gardner on 09-24-2022 RBC (Bld) [#/Vol] 4.54 10*6/uL 4.2-5.4 [facility] Blood hemoglobin measurement (mass/volume)Ordered By: Dr. Gardner on 09-24-2022 Hemoglobin (Bld) [Mass/Vol] 14.5 g/dL 12.0-15.0 [facility] Blood lymphocytes/100 leukoc ytesOrdered By: Dr. Gardner on 09-24-2022 Lymphocytes/100 WBC (Bld) 28.8 % 19-41 [facility] Blood monocytes/100 leukocyt esOrdered By: Dr. Gardner on 09-24-2022 Monocytes/100 WBC (Bld) 6.6 % 0-10 [facility] Blood platelet mean volumeOr dered By: Dr. Gardner on 09-24-2022 Platelet mean volume (Bld) [Entitic vol] 9.3 fL 6.2-12.0 [facility] Determination of erythrocyte mean corpuscular volume (MCV)Ordered By: Dr. Gardner on 09-24-2022 MCV (RBC) [Entitic vol] 92.1 fL 81-99 [facility] Glucose Glucometer (BldC) [M ass/Vol]Ordered By: Dr. Gardner on 09-24-2022 Glucose [Mass/Vol] 91 mg/dL 74-[address] [facility] Comment on above: MANAGEMENT OF PATIEN T CARE PER NURSING PROTOCOL Hematocrit Auto (Bld) [Volum e fraction]Ordered By: Dr. Gardner on 09-24-2022 Hematocrit (Bld) [Volume fraction] 41.8 % 37-47 [facility] - Chemistry and C hemistry - challengeOrdered By: Dr. Gardner on 09-24-2022 CO2 [Moles/Vol] 24.0 mmol/L 21.0-32.0 [facility] Urea nitrogen/Creatinine [Mass ratio] 13.2 mg/mg 10-20 [facility] - Chemistry and C hemistry - challengeOrdered By: Angela Herzog on 09-24-2022 Cobalamin (Vitamin B12) [Mass/Vol] 269 pg/mL 211-911 [facility] - Hematology and Cell countsOrdered By: Dr. Gardner on 09-24-2022 Erythrocyte distribution width (RBC) [Entitic vol] 39.8 fL 35.1-43.9 [facility] Erythrocyte distribution width (RBC) [Ratio] 11.8 % 11.6-14.6 [facility] Immature granulocytes/100 WBC (Bld) 0.400 % 0.0-0.9 [facility] Comment on above: IG% - Immature Granu locytes (promyelocytes, myelocytes and metamyelocytes) > 1% indicates that a LEFT SHIFT is Present. MCH (RBC) [Entitic mass] 31.9 pg 27.0-32.0 [facility] Nucleated RBC/100 WBC (Bld) [Ratio] 0 % 0-5 [facility] MCHC Auto (RBC) [Mass/Vol]Or dered By: Dr. Gardner on 09-24-2022 MCHC (RBC) [Mass/Vol] 34.7 g/dL 32-36 [facility] No Panel InformationOrdered By: Dr. Gardner on 09-24-2022 Estimated Creatinine Clearance Calc 91.61 ml/min [facility] Estimated GFR (MDRD) Amer 105 mL/min >60 [facility] Comment on above: GFR Calc Estimated GFR (MDRD) Non-Af Amer 87 mL/min >60 [facility] Comment on above: Non- GFR Calc No Panel InformationOrdered By: Angela Herzog on 09-24-2022 Thyroid Stimulating Hormone (TSH) 0.74 uIU/mL 0.358-3.74 [facility] Vitamin D 25-Hydroxy 41.0 ng/mL [facility] Comment on above: Vitamin D 25(OH) Sta tus Range Deficiency <20 ng/mL (50nmol/L) Insufficiency 20 - 30 ng/mL (50 - 75 nmol/L) Sufficiency 30 - 100 ng/mL (75 - 250 nmol/L) Toxicity >100 ng/mL (>250 nmol/L) Platelets bldOrdered By: Dr. Gardner on 09-24-2022 Platelets (Bld) [#/Vol] 257 10*3/uL 150-450 [facility] Serum or plasma calcium demi urement (mass/volume)Ordered By: Dr. Gardner on 09-24-2022 Calcium [Mass/Vol] 9.4 mg/dL 8.5-10.[address] [facility] Serum or plasma creatinine m easurement (mass/volume)Ordered By: Dr. Gardner on 09-24-2022 Creatinine [Mass/Vol] 0.83 mg/dL 0.55-1.02 [facility] Comment on above: The validity of the calculated GFR & GFRAA in patients over 70 years has not been determined. Clinical correlation is essential. Serum or plasma urea nitroge n measurement (mass/volume)Ordered By: Dr. Gardner on 09-24-2022 Urea nitrogen [Mass/Vol] 11 mg/dL 7-18 [facility] Thin prep Papanicolaou smear with manual screeningOrdered By: Dr. Gardner on 09-24-2022 Thin prep Papanicolaou smear with manual screening 6 5-15 [facility] Absolute lymphocyte countOrd ered By: Nadeen Love on 04-11-2022 Lymphocytes Auto (Unsp spec) [#/Vol] 2.31 10*3/uL 0.83-4.51 [facility] Basophil percentageOrdered B y: Nadeen Love on 04-11-2022 Basophils/100 WBC (Bld) 0.9 % 0-1 [facility] Bilirubin [Mass/Vol] 0.30 mg/dL 0.20-1.00 [facility] Comment on above: For patients on eltr ombopag therapy, use of Dimension [place] TBIL is not recommended. Chloride [Moles/Vol] 108 mmol/L 98-107 [facility] Eosinophils/100 WBC (Bld) 1.4 % 0-5 [facility] Glucose [Mass/Vol] 87 mg/dL 74-[address] [facility] Neutrophils (Bld) [#/Vol] 3.4 10*3/uL 2.0-7.7 [facility] Neutrophils/100 WBC (Bld) 53.8 % 47-70 [facility] Potassium [Moles/Vol] 4.0 mmol/L 3.5-5.1 [facility] Protein [Mass/Vol] 6.9 g/dL 6.4-8.[address] [facility] Sodium [Moles/Vol] 139 mmol/L 136-[address] [facility] WBC (Bld) [#/Vol] 6.4 10*3/uL 4.4-11.[address] [facility] Blood erythrocytes count (nu mber/volume)Ordered By: Nadeen Love on 04-11-2022 RBC (Bld) [#/Vol] 4.21 10*6/uL 4.2-5.4 [facility] Blood hemoglobin measurement (mass/volume)Ordered By: Nadeen Statdianne on 04-11-2022 Hemoglobin (Bld) [Mass/Vol] 13.5 g/dL 12.0-15.0 [facility] Blood lymphocytes/100 leukoc ytesOrdered By: Nadeen Statdianne on 04-11-2022 Lymphocytes/100 WBC (Bld) 36.4 % 19-41 [facility] Blood monocytes/100 leukocyt esOrdered By: Nadeen Statjlos on 04-11-2022 Monocytes/100 WBC (Bld) 7.2 % 0-10 [facility] Blood platelet mean volumeOr dered By: Nadeen Statdianne on 04-11-2022 Platelet mean volume (Bld) [Entitic vol] 9.6 fL 6.2-12.0 [facility] Determination of erythrocyte mean corpuscular volume (MCV)Ordered By: Nadeen Statdianne on 04-11-2022 MCV (RBC) [Entitic vol] 95.0 fL 81-99 [facility] Hematocrit Auto (Bld) [Volum e fraction]Ordered By: Nadeen Love on 04-11-2022 Hematocrit (Bld) [Volume fraction] 40.0 % 37-47 [facility] - Chemistry and C hemistry - challengeOrdered By: Nadeen Love on 04-11-2022 ALP [Catalytic activity/Vol] 51 U/L 45-117 [facility] ALT [Catalytic activity/Vol] 15 U/L 13-56 [facility] CO2 [Moles/Vol] 26.0 mmol/L 21.0-32.0 [facility] Globulin (S) [Mass/Vol] 3.2 g/dL 2.2-4.2 [facility] Urea nitrogen/Creatinine [Mass ratio] 15.1 mg/mg 10-20 [facility] - Hematology and Cell countsOrdered By: Nadeen Love on 04-11-2022 Erythrocyte distribution width (RBC) [Entitic vol] 41.8 fL 35.1-43.9 [facility] Erythrocyte distribution width (RBC) [Ratio] 11.9 % 11.6-14.6 [facility] Immature granulocytes/100 WBC (Bld) 0.300 % 0.0-0.9 [facility] Comment on above: IG% - Immature Granu locytes (promyelocytes, myelocytes and metamyelocytes) > 1% indicates that a LEFT SHIFT is Present. MCH (RBC) [Entitic mass] 32.1 pg 27.0-32.0 [facility] Nucleated RBC/100 WBC (Bld) [Ratio] 0 % 0-5 [facility] MCHC Auto (RBC) [Mass/Vol]Or dered By: Nadeen Love on 04-11-2022 MCHC (RBC) [Mass/Vol] 33.8 g/dL 32-36 [facility] No Panel InformationOrdered By: Nadeen Love on 04-11-2022 Estimated GFR (MDRD) Amer 137 mL/min >60 [facility] Comment on above: GFR Calc Estimated GFR (MDRD) Non-Af Amer 113 mL/min >60 [facility] Comment on above: Non- GFR Calc Thyroid Stimulating Hormone (TSH) 0.67 uIU/mL 0.358-3.74 [facility] Platelets bldOrdered By: Javier Love on 04-11-2022 Platelets (Bld) [#/Vol] 295 10*3/uL 150-450 [facility] Serum or plasma albumin demi urement (mass/volume)Ordered By: Nadeen Ivan on 04-11-2022 Albumin [Mass/Vol] 3.7 g/dL 3.2-5.[address] [facility] Serum or plasma albumin/glob ulin mass ratioOrdered By: [facility]adeen [facility] on 04-11-2022 Albumin/Globulin [Mass ratio] 1.2 {ratio} 0.9-2.4 [facility] Serum or plasma calcium demi urement (mass/volume)[facility] 04-11[facility]22 Calcium [Mass/Vol] 9.0 mg/dL 8.5-10.[address] [facility] Serum or plasma creatinine m easurement (mass/volume)Ordered By: [facility] on 04-11-2022 Creatinine [Mass/Vol] 0.66 mg/dL 0.55-1.02 [facility] Comment on above: The validity of the calculated GFR & GFRAA in patients over 70 years has not been determined. Clinical correlation is essential. Serum or plasma urea nitroge n measurement (mass/volume)Ordered By: Nadeen Ivan on 04-11-2022 Urea nitrogen [Mass/Vol] 10 mg/dL 7-18 [facility] Thin prep Papanicolaou smear with manual screeningOrdered By: [facility] on 04-11-2022 Thin prep Papanicolaou smear with manual screening 10 U/L 15-37 [facility] Thin prep Papanicolaou smear with manual screening 5 5-15 [facility] STREP A MOLECULAR (POC)on Procedural Control Valid [facility] Strep A (POCT) Negative Negative [facility] Vital Signs Date Time Vital Sign Value Performing Clinician Facility 12-08-2024 08:53-0400 Body height 167.64 cm Mary Jones MD Work Phone: [facility] 12-08-2024 08:53-0400 Body mass index (BMI) [Ratio] 22.8 kg/m2 Mary Jones MD Work Phone: [facility] 12-08-2024 08:53-0400 Body temperature 98.7 [degF] Mary Jones MD Work Phone: [facility] 12-08-2024 08:53-0400 Body weight 64.41 kg Mary Jones MD Work Phone: [facility] 12-08-2024 08:53-0400 Diastolic blood pressure 71 mm[Hg] Mary Jones MD Work Phone: [facility] 12-08-2024 08:53-0400 Heart rate 72 /min Mary Jones MD Work Phone: [facility] 12-08-2024 08:53-0400 Respiratory rate 15 /min Mary Jones MD Work Phone: [facility] 12-08-2024 08:53-0400 SaO2% (BldA) [Mass fraction] 98 % Mary Jones MD Work Phone: [facility] 12-08-2024 08:53-0400 Systolic blood pressure 103 mm[Hg] Mary Jones MD Work Phone: [facility] 11-30-2024 11:31-0400 Body mass index (BMI) [Ratio] 22.99 kg/m2 Padmini Isabela OUTBOARD MOTORBOAT OPERATOR.NUCLEAR WORKER TECHNICIAN Work Phone: [facility] 11-30-2024 11:31-0400 Body temperature 97.59 [degF] Padmini Isabela OUTBOARD MOTORBOAT OPERATOR.NUCLEAR WORKER TECHNICIAN Work Phone: [facility] 11-30-2024 11:31-0400 Body weight 64.6 kg Padmini Isabela OUTBOARD MOTORBOAT OPERATOR.NUCLEAR WORKER TECHNICIAN Work Phone: [facility] 11-30-2024 11:31-0400 Diastolic blood pressure 62 mm[Hg] Padmini Isabela OUTBOARD MOTORBOAT OPERATOR.NUCLEAR WORKER TECHNICIAN Work Phone: [facility] 11-30-2024 11:31-0400 Heart rate 62 /min Padmini Isabela OUTBOARD MOTORBOAT OPERATOR.NUCLEAR WORKER TECHNICIAN Work Phone: [facility] 11-30-2024 11:31-0400 Respiratory rate 16 /min Padmini Isabela OUTBOARD MOTORBOAT OPERATOR.NUCLEAR WORKER TECHNICIAN Work Phone: [facility] 11-30-2024 11:31-0400 SaO2% (BldA) [Mass fraction] 100 % Padmini Mar OUTBOARD MOTORBOAT OPERATOR.NUCLEAR WORKER TECHNICIAN Work Phone: [facility] 11-30-2024 11:31-0400 Systolic blood pressure 104 mm[Hg] Padmini Mar APRN.NUCLEAR WORKER TECHNICIAN Work Phone: [facility] 08-06-2024 10:36-0400 Body temperature 98.4 [degF] Mary Jones MD Work Phone: [facility] 08-06-2024 10:36-0400 Diastolic blood pressure 78 mm[Hg] Mary Jones MD Work Phone: [facility] 08-06-2024 10:36-0400 Heart rate 66 /min Mary Jones MD Work Phone: [facility] 08-06-2024 10:36-0400 Respiratory rate 18 /min Mary Jones MD Work Phone: [facility] 08-06-2024 10:36-0400 SaO2% (BldA) [Mass fraction] 96 % Mary Jones MD Work Phone: [facility] 08-06-2024 10:36-0400 Systolic blood pressure 112 mm[Hg] Mary Jones MD Work Phone: [facility] 08-06-2024 08:05-0400 Body height 167.64 cm Mary Jones MD Work Phone: [facility] 08-06-2024 08:05-0400 Body mass index (BMI) [Ratio] 23.7 kg/m2 Mary Jones MD Work Phone: [facility] 08-06-2024 08:05-0400 Body weight 66.7 kg Mary Jones MD Work Phone: [facility] 06-10-2024 08:28-0400 Body height 165.1 cm Mary Jones MD Work Phone: [facility] 06-10-2024 08:28-0400 Body mass index (BMI) [Ratio] 22.4 kg/m2 Mary Jones MD Work Phone: [facility] 06-10-2024 08:28-0400 Body temperature 98.1 [degF] Mary Jones MD Work Phone: [facility] 06-10-2024 08:28-0400 Body weight 61.23 kg Mary Jones MD Work Phone: [facility] 06-10-2024 08:28-0400 Diastolic blood pressure 79 mm[Hg] Mary Jones MD Work Phone: [facility] 06-10-2024 08:28-0400 Heart rate 68 /min Mary Jones MD Work Phone: [facility] 06-10-2024 08:28-0400 Respiratory rate 15 /min Mary Jones MD Work Phone: [facility] 06-10-2024 08:28-0400 SaO2% (BldA) [Mass fraction] 100 % Mary Jones MD Work Phone: [facility] 06-10-2024 08:28-0400 Systolic blood pressure 134 mm[Hg] Mary Jones MD Work Phone: [facility] 05-21-2024 15:45-0500 Body height 167.6 cm Amita Burlington OUTBOARD MOTORBOAT OPERATOR.NUCLEAR WORKER TECHNICIAN Work Phone: [facility] 05-21-2024 15:45-0500 Body mass index (BMI) [Ratio] 22.76 kg/m2 Amita Burlington OUTBOARD MOTORBOAT OPERATOR.NUCLEAR WORKER TECHNICIAN Work Phone: [facility] 05-21-2024 15:45-0500 Body weight 63.96 kg Amita Skyler OUTBOARD MOTORBOAT OPERATOR.NUCLEAR WORKER TECHNICIAN Work Phone: [facility] 05-21-2024 15:45-0500 Diastolic blood pressure 66 mm[Hg] Amita Burlington OUTBOARD MOTORBOAT OPERATOR.NUCLEAR WORKER TECHNICIAN Work Phone: [facility] 05-21-2024 15:45-0500 Systolic blood pressure 112 mm[Hg] Amita Burlington OUTBOARD MOTORBOAT OPERATOR.NUCLEAR WORKER TECHNICIAN Work Phone: [facility] 07-01-2023 14:43-0400 Body height 166.4 cm Amita Skyler OUTBOARD MOTORBOAT OPERATOR.NUCLEAR WORKER TECHNICIAN Work Phone: [facility] 07-01-2023 14:43-0400 Body weight 68.86 kg Amita Burlington OUTBOARD MOTORBOAT OPERATOR.NUCLEAR WORKER TECHNICIAN Work Phone: [facility] 07-01-2023 14:43-0400 Diastolic blood pressure 70 mm[Hg] Amita Skyler OUTBOARD MOTORBOAT OPERATOR.NUCLEAR WORKER TECHNICIAN Work Phone: [facility] 07-01-2023 14:43-0400 Systolic blood pressure 110 mm[Hg] Amita Skyler OUTBOARD MOTORBOAT OPERATOR.NUCLEAR WORKER TECHNICIAN Work Phone: [facility] 09-24-2022 08:41-0400 Body height 165.1 cm [facility] 09-24-2022 08:41-0400 Body mass index (BMI) [Ratio] 23.3 kg/m2 [facility] 09-24-2022 08:41-0400 Body temperature 96.3 [degF] [facility] 09-24-2022 08:41-0400 Body weight 63.5 kg [facility] 09-24-2022 08:41-0400 Diastolic blood pressure 91 mm[Hg] [facility] 09-24-2022 08:41-0400 Heart rate 65 /min [facility] 09-24-2022 08:41-0400 Respiratory rate 22 /min [facility] 09-24-2022 08:41-0400 SaO2% (BldA) [Mass fraction] 99 % [facility] 09-24-2022 08:41-0400 Systolic blood pressure 133 mm[Hg] [facility] 04-23-2022 15:23-0500 Body height 167.6 cm Amita Burlington OUTBOARD MOTORBOAT OPERATOR.NUCLEAR WORKER TECHNICIAN Work Phone: [facility] 04-23-2022 15:23-0500 Body weight 57.15 kg Amita Skyler OUTBOARD MOTORBOAT OPERATOR.NUCLEAR WORKER TECHNICIAN Work Phone: [facility] 04-23-2022 15:23-0500 Diastolic blood pressure 78 mm[Hg] Amita Skyler OUTBOARD MOTORBOAT OPERATOR.NUCLEAR WORKER TECHNICIAN Work Phone: [facility] 04-23-2022 15:23-0500 Heart rate 90 /min Amita Burlington OUTBOARD MOTORBOAT OPERATOR.NUCLEAR WORKER TECHNICIAN Work Phone: [facility] 04-23-2022 15:23-0500 Respiratory rate 12 /min Amita Skyler OUTBOARD MOTORBOAT OPERATOR.NUCLEAR WORKER TECHNICIAN Work Phone: [facility] 04-23-2022 15:23-0500 SaO2% (BldA) [Mass fraction] 100 % Amita Burlington OUTBOARD MOTORBOAT OPERATOR.NUCLEAR WORKER TECHNICIAN Work Phone: [facility] 04-23-2022 15:23-0500 Systolic blood pressure 106 mm[Hg] Amita Skyler OUTBOARD MOTORBOAT OPERATOR.NUCLEAR WORKER TECHNICIAN Work Phone: [facility] 01-25-2022 17:02-0400 Body temperature 98.6 [degF] Aggie Kelly APRN.NUCLEAR WORKER TECHNICIAN Work Phone: [facility] 01-25-2022 17:02-0400 Body weight 57.06 kg Aggie Kelly APRN.NUCLEAR WORKER TECHNICIAN Work Phone: [facility] 01-25-2022 17:02-0400 Diastolic blood pressure 86 mm[Hg] Aggie Kelly APRN.NUCLEAR WORKER TECHNICIAN Work Phone: [facility] 01-25-2022 17:02-0400 Heart rate 71 /min Aggie Kelly APRN.NUCLEAR WORKER TECHNICIAN Work Phone: [facility] 01-25-2022 17:02-0400 Respiratory rate 18 /min Aggie Kelly APRN.NUCLEAR WORKER TECHNICIAN Work Phone: [facility] 01-25-2022 17:02-0400 SaO2% (BldA) [Mass fraction] 99 % Aggie Kelly APRN.NUCLEAR WORKER TECHNICIAN Work Phone: [facility] 01-25-2022 17:02-0400 Systolic blood pressure 124 mm[Hg] Aggie Kelly APRN.NUCLEAR WORKER TECHNICIAN Work Phone: [facility] Encounters Encounter Date Encounter Type Care Provider Facility Start: 01-04-2025 End: 01-04-2025 ambulatory Norman Ford Facility:[facility] Start: 12-08-2024 End: 12-08-[address] Norman Ford MD -[facility] Work Phone: Start: 12-08-2024 End: 12-08-2024 ambulatory Mary Jones MD Work Phone: -[facility] Start: 11-30-2024 End: 11-30-2024 Patient encounter procedure Padmini Mar APRN.NUCLEAR WORKER TECHNICIAN Work Phone: [facility] Comment on above: Laceration of left m iddle finger without foreign body without damage to nail, initial encounter (Primary Dx) Start: 11-30-2024 End: 12-01-2024 ambulatory Mercedes Yo RN NURSE DIRECTOR OF CURRICULUM AND INSTRUCTION Comment on above: Opened In Error Start: 09-15-2024 ambulatory Mary Jones Facility:[facility] Start: 09-15-2024 Non-patient / Non-visit [facility] Dong [facility] Start: 08-25-2024 End: 08-25-2024 ambulatory Mary Jones MD Work Phone: [facility] Work Phone: Start: 08-25-2024 End: 08-25-[address] Mary Jones MD -[facility] Work Phone: Start: 08-25-2024 End: 08-25-2024 ambulatory Mary Jones Facility:[facility] Start: 08-06-2024 End: 08-06-2024 Emergency department patient visit Mary Jones MD Work Phone: -Emergency Department Work Phone: Start: 06-11-2024 End: 06-11-2024 ambulatory Amita Love APRN.NUCLEAR WORKER TECHNICIAN Work Phone: OB/Gynecology Comment on above: Adenomyosis (Primary Dx) Start: 06-11-2024 End: 06-11-2024 Telemedicine consultation with patient Amita Skylerleo ROTHMANNUCLEAR WORKER TECHNICIAN Work Phone: OB/Gynecology Start: 06-10-2024 End: 06-10-2024 Emergency department patient visit Mary Jones MD Work Phone: -Emergency Department Work Phone: Start: 06-08-2024 End: 08-08-2024 Follow-up encounter Amita Love APRN.NUCLEAR WORKER TECHNICIAN Work Phone: OB/Gynecology Comment on above: Results Start: 06-04-2024 End: 06-04-2024 ambulatory Rehab Therapist [facility] Work Phone: OB/Gynecology Start: 06-04-2024 End: 06-04-2024 Patient encounter procedure [facility]/Gynecology Start: 05-29-2024 End: 05-29-2024 ambulatory Mary Jones MD Work Phone: [facility] Work Phone: Start: 05-29-2024 End: 05-29-[address] Mary Jones MD -Laboratory, [facility] Start: 05-29-2024 End: 05-29-2024 ambulatory Mary Jones Facility:[facility] Start: 05-21-2024 End: 05-21-2024 Patient encounter procedure Amita Love APRN.NUCLEAR WORKER TECHNICIAN Work Phone: OB/Gynecology Comment on above: Encounter for gyneco logical examination (general) (routine) without abnormal findings (Primary Dx); Pelvic pain in female Start: 05-21-2024 End: 05-21-2024 Patient encounter status Amita Love APRN.NUCLEAR WORKER TECHNICIAN Work Phone: [facility] Start: 05-21-2024 End: 05-21-2024 ambulatory AMITA LOVE Facility:[facility] Start: 05-21-2024 Encounter for gynecological examination (general) (routine) without abnormal findings AMITA LOVE [facility] Start: 07-01-2023 End: 07-01-2023 Patient encounter procedure Amita Martinezcalf ROBERT.NUCLEAR WORKER TECHNICIAN Work Phone: OB/Gynecology Comment on above: Encounter for gyneco logical examination (general) (routine) without abnormal findings (Primary Dx) Start: 07-01-2023 End: 07-01-2023 Patient encounter status Amita Love OUTBOARD MOTORBOAT OPERATOR.NUCLEAR WORKER TECHNICIAN Work Phone: [facility] Start: 06-21-2023 End: 06-21-2023 ambulatory [facility] Work Phone: Start: 06-21-2023 End: 06-21-2023 Patient encounter procedure [facility]-Cat Scan, [facility] Work Phone: Start: 10-29-2022 End: 10-29-2022 ambulatory MD Mary Jones Work Phone: [facility] Work Phone: Start: 10-29-2022 End: 10-29-2022 Patient encounter procedure MD Mary oJnes Work Phone: [facility] Start: 09-24-2022 End: 09-24-2022 Emergency department patient visit [facility]-Emergency Department Start: 09-24-2022 End: 09-24-2022 Patient encounter procedure Karma Mijares PA-C Work Phone: [facility] Comment on above: Dizziness (Primary D x); Visual changes; Hyperventilating Start: 04-23-2022 End: 04-23-2022 Patient encounter procedure Amitacristian MartinezBurlingtonleo JONES.NUCLEAR WORKER TECHNICIAN Work Phone: OB/Gynecology Comment on above: Encounter for gyneco logical examination (general) (routine) without abnormal findings (Primary Dx); Screening for cervical cancer; Encounter for screening for human papillomavirus (HPV); Vaginal discharge Start: 04-23-2022 End: 04-23-2022 Patient encounter status Amita Martinezcalf ROBERT.NUCLEAR WORKER TECHNICIAN Work Phone: OB/Gynecology Start: 04-11-2022 End: 04-11-2022 ambulatory [facility] Work Phone: Start: 04-11-2022 End: 04-11-2022 Patient encounter procedure [facility] Start: 01-25-2022 End: 01-25-2022 Patient encounter procedure Aggie Kelly APRN.NUCLEAR WORKER TECHNICIAN Work Phone: [facility] Comment on above: Sore throat (Primary Dx); At increased risk of exposure to COVID-19 virus Procedures Date Procedure Procedure Detail Performing Clinician Start: 11-30-2024 Simple repair scalp/neck/ax/genit/trunk 2.5cm/< Padmini Mar APRN.NUCLEAR WORKER TECHNICIAN Work Phone: Start: 08-06-2024 Estimated creatinine clearance Mary Jones MD Work Phone: Start: 08-06-2024 CT of head without contrast Mary Jones MD Work Phone: Start: 06-04-2024 Us pelvic nonobstetr ic real-time image complete Amita Love APRN.NUCLEAR WORKER TECHNICIAN Work Phone: Start: 05-29-2024 Vitamin D, 25-hydrox y measurement Mary Jones MD Work Phone: Comment on above: Vitamin D StatusDefi ciency: <20 ng/mL (50nmol/L)Insufficiency: 20-30 ng/mL (50-75 nmol/L)Sufficiency: 30-100 ng/mL (75-250 nmol/L)Toxicity: >100 ng/mL (>250 nmol/L) Start: 06-21-2023 Computed tomography of abdomen and pelvis with contrast Start: 10-29-2022 X-ray of cervical spine MD Mary Jones Work Phone: Start: 01-25-2022 STREP A MOLECULAR (POC) Aggie Kelly APRN.NUCLEAR WORKER TECHNICIAN Work Phone: Plan of Treatment Date Care Activity Detail Author Start: 04-12-2031 Urine microalbumin profile DTaP,Tdap,Td Vaccine (2 - Td or Tdap) [facility] Start: 04-23-2025 PAP TESTING PAP TESTING [facility] Start: 04-23-2025 Screening for malign ant neoplasm of cervix [facility] Start: 11-30-2024 Influenza vaccination [facility] Start: 08-06-2024 [facility] Start: 06-10-2024 [facility] Start: 05-28-2024 End: 05-28-2024 Manual pelvic examination 05/28/2024 3:30 PM EST Procedure OB/Gynecology [address] [place] [address] Remote, Rehab Therapist [facility] [address] [place] [address] Pelvic pain in female [R10.2] OB/Gynecology Comment on above: Pelvic pain in femal e [R10.2] Start: 05-21-2024 End: 05-21-2025 US Pelvis PELVIC US [facility] Routine Pelvic pain in female Expected: 05/21/2024, Expires: 05/21/2025 [facility] Work Phone: Comment on above: Expected: 05/21/2024 , Expires: 05/21/2025 Start: 12-01-2023 Covid-19 Vaccine ( season) Covid-19 Vaccine ( season) [facility] Start: 12-01-2023 Influenza vaccination [facility] Start: 04-01-2023 Depression Assessment Depression Ass essment [facility] Start: 11-30-2022 Covid-19 Vaccine ( season) Covid-19 Vaccine ( season) [facility] Start: 11-30-2022 Influenza vaccination INFLUENZA (Sea son Ended) [facility] Start: 04-01-2022 DEPRESSION ASSESSMENT DEPRESSION ASS ESSMENT [facility] Start: 01-25-2022 End: 02-08-2022 Influenza virus A and B RNA and SARS-CoV-2 (COVID-19) N gene panel - Respiratory specimen by KATHY with probe detection COVID WITH FLUA+B, ROUTINE Microbiology Routine Sore throat At increased risk of exposure to COVID-19 virus Expected: 01/25/2022, Expires: 02/08/2022 [facility] Work Phone: Comment on above: Expected: 01/25/2022 , Expires: 02/08/2022 Start: 11-30-2021 Influenza vaccination INFLUENZA (#1) [facility] Start: 04-28-2021 COVID-19 VACCINE (3 - Booster for Pfizer series) COVID-19 VACCINE (3 - Booster for Pfizer series) [facility] Start: 04-01-2021 DEPRESSION ASSESSMENT DEPRESSION ASS ESSMENT [facility] Start: 04-04-2019 PAP TESTING PAP TESTING [facility] Start: 2013 Hepatitis B Vaccine (1 of 3 - 19+ 3-dose series) Hepatitis B Vaccine (1 of 3 - 19+ 3-dose series) [facility] Start: 2013 Urine microalbumin profile DTAP,TDAP,TD (1 - Tdap) [facility] Start: 2012 Anxiety Screening Anxiety Screening [facility] Start: 2012 Depression Screening Depression Scre ening [facility] Start: 2012 HEPATITIS C SCREENING HEPATITIS C [facility] Start: 2012 Hepatitis C screening Hepatitis C [facility] Start: 2012 HIV SCREENING HIV SCREENING [facility] Start: 2012 HIV screening HIV Screening [facility] Start: 1994 HEPATITIS B (1 of 3 - 3-dose series) HEPATITIS B (1 of 3 - 3-dose series) [facility] BACTERIAL VAGINOSIS AMPLIFICATION BACTERIAL VAGINOSIS AMPLIFICATION Lab Routine Vaginal discharge Ordered: 04/23/2022 [facility] Work Phone: Comment on above: Ordered: 04/23/2022 ILDA / TRICHOMONA S AMPLIFICATION ILDA / TRICHOMONAS AMPLIFICATION Microbiology Routine Vaginal discharge Ordered: 04/23/2022 [facility] Work Phone: Comment on above: Ordered: 04/23/2022 MR Brain WO and W contrast IV [facility] PAP FLUID CERVICAL SCREENING PAP FLUID CERVICAL SCREENING Lab Routine Encounter for gynecological examination (general) (routine) without abnormal findings Screening for cervical cancer Encounter for screening for human papillomavirus (HPV) Ordered: 04/23/2022 [facility] Work Phone: Comment on above: Ordered: 04/23/2022 Patient Education [facility] Work Phone: Patient referral [facility] Work Phone: Immunizations Immunization Date Immunization Notes Care Provider Renato verdugo 04-12-2021 tetanus toxoid, redu alba diphtheria toxoid, and acellular pertussis vaccine, adsorbed Mercedes Yo RN [facility] 04-12-2021 influenza virus vacc ine, unspecified formulation Amita Love OUTBOARD MOTORBOAT OPERATOR.NUCLEAR WORKER TECHNICIAN Work Phone: [facility] 06-10-2009 human papilloma viru s vaccine, quadrivalent Aggie Robin OUTBOARD MOTORBOAT OPERATOR.NUCLEAR WORKER TECHNICIAN Work Phone: [facility] 02-10-2009 human papilloma viru s vaccine, quadrivalent Aggie Robin OUTBOARD MOTORBOAT OPERATOR.NUCLEAR WORKER TECHNICIAN Work Phone: [facility] 12-10-2008 human papilloma viru s vaccine, quadrivalent Aggie Robin OUTBOARD MOTORBOAT OPERATOR.NUCLEAR WORKER TECHNICIAN Work Phone: [facility] Payers Date Payer Category Payer Self-pay [id number] 2022 [facility] Subscriber Plan / Payer (Effective 2022-Present) Name: Chante Hazel Member ID: [id number] Relation to Subscriber: Self Name: Chante Hazel Subscriber ID: [email or web address] Payer ID: [id number] (NAIC) Type: PPO Address: [facility] [id number] [id number] 2022 Unknown [id number] 2018 Unknown [id number] Unknown [facility] [id number] Unknown [id number] Unknown [id number] Unknown [id number] 462 Unknown [id number] 462 Unknown [id number] 462 Unknown [id number] 462 Unknown [id number] 462 Unknown [id number] 462 Social History Date Type Detail Facility Start: 01-25-2022 End: 07-01-2023 Tobacco smoking status SCIS Ex-smoker [facility] History of tobacco use Current smoker [facility] History of tobacco use Cigarette Smoker [facility] Start: 01-25-2022 End: 05-21-2024 Cigarettes smoked current (pack per day) - Reported 0.5 [facility] Start: 01-25-2022 Tobacco use and exposure User of smokeless tobacco [facility] Start: 01-25-2022 Alcohol intake Current drinke r of alcohol (finding) [facility] Start: 01-25-2022 Tobacco [facility] Start: 04-17-2017 Alcohol Comment socially [facility] Start: 1995 Sex Assigned At Not on file [facility] Start: 01-15-2022 End: 01-25-2022 Exposure to SARS-CoV-2 (event) Not sure [facility] Start: 04-11-2018 End: 09-24-2022 Tobacco smoking status SCIS Unknown if ever smoked [facility] Start: 1995 Sex Assigned At Female W [facility] Start: 04-23-2022 End: 07-01-2023 Tobacco use and exposure Smokeless tobacco non-user [facility] Start: 04-23-2022 End: 05-21-2024 Alcohol intake Ex-drinker (finding) [facility] Start: 07-01-2023 End: 05-21-2024 Tobacco use panel [facility] Start: 03-02-2012 National Score (1-100), lower number is lower risk 50 [facility] Start: 07-01-2023 Education 13 [facility] Start: 06-10-2024 End: 08-06-2024 Tobacco smoking status NHIS Smokes tobacco daily (finding) [facility] Start: 06-10-2024 End: 06-11-2024 Sex Female (finding) [facility] NEGATED: Highlighted row [facility] NEGATED: Highlighted rowStart: NINF History of tobacco use Passive smoker [facility] Mental Status Date Assessment Result Facility 09-24-2022 Cognitive function Level Of Cons ciousness Awake;Alert;Appropriate;Follow s Commands [facility] Work Phone: Clinical Notes 01-25-2022 to 11-30-2024 Patient InstructionsPadmini Mar APRN.CNP - 11/30/2024 12:58 PM EDTTelephone Encounter - Mercedes Yo RN - 11/30/2024 10:40 AM EDAmita Van APRN.CNP - 06/11/2024 2:36 PM EDT Note Date & Type Note Facility 11-30-2024 Instructions Padmini Mar APRN.CNP - 11/30/2024 1:23 PM EDT -Monitor for signs of infection -Leave steri strips on until fall off - do not get we the first 24 hous. -Return for re-eval if any signs or symptoms of infection. documented in this encounter [facility] 11-30-2024 Note Padmini Mar APRN.CN P 11/30/2024 1:23 PM Laceration Procedure: left long finger Date/Time: 11/30/2024 1:20 PM Performed by: Padmini Mar APRN.NUCLEAR WORKER TECHNICIAN Authorized by: Padmini Mar APRN.CNP Informed Consent Consent Obtained: Verbal Bend Protocol SIGN IN Patient/Surrogate Stated/Verified: Patient name, Intended procedure, Date of and Relevant allergies TIME OUT Laceration Repair Body area: upper extremity Location details: left long finger Laceration length: 1 cm Foreign bodies: no foreign bodies Tendon involvement: none Nerve involvement: none Vascular damage: no Irrigation solution: saline Irrigation method: syringe Amount of cleaning: extensive Debridement: none Degree of undermining: none Skin closure: Steri-Strips Approximation difficulty: simple Dressing: non-adhesive packing strip Patient tolerance: patient tolerated the procedure well with no immediate complications [facility] 11-30-2024 Note HNO ID: [id number] Author: PADMINI MAR APRN.CNP Service: ? Author Type: Nurse Practitioner Type: Progress Notes Filed: 11/30/2024 13:23 Note Text: Wily Hazel is a 29 year old female. The history is provided by the patient and the spouse. No customs guard was used. HPI Chante Hazel is a 29 year old female who presents today for CC of laceration on left middle finger, but about an hours ago with a facial razor. She has not used any treatment or medications. Last tdap was 04/2021 SOCIAL HISTORY[1] PAST MEDICAL HISTORY Diagnosis Date Anxiety and depression 04/04/2022 Coitus painful for female DYSMENORRHEA Ovarian cyst I have confirmed and edited as necessary, the [facility] Review of Systems Constitutional: Negative for fatigue and fever. Musculoskeletal: Negative for myalgias. Skin: Positive for wound (laceration left middle finger). Negative for color change and rash. Objective BP 104/62 Pulse 62 Temp 36.4 ?C (97.6 ?F) Resp 16 Wt 64.6 kg (142 lb 6.7 oz) LMP 05/18/2024 (Exact Date) SpO2 100% BMI 22.99 kg/m? Physical Exam Constitutional: General: She is not in acute distress. HENT: Head: Normocephalic and atraumatic. Eyes: Conjunctiva/sclera: Conjunctivae normal. Pupils: Pupils are equal, round, and reactive to light. Pulmonary: Effort: Pulmonary effort is normal. Musculoskeletal: Right hand: Normal. Left hand: Tenderness present. No swelling, deformity, lacerations or bony tenderness. Normal range of motion. Normal strength. Normal sensation. There is no disruption of two-point discrimination. Normal capillary refill. Normal pulse. Hands: Cervical back: Normal range of motion and neck supple. Comments: 1cm laceration, not deep. Skin: General: Skin is warm and dry. Findings: Laceration present. Neurological: Mental Status: She is alert and oriented to person, place, and time. Laceration Procedure: left long finger Date/Time: 11/30/2024 1:20 PM Performed by: Padmini Mar APRN.NUCLEAR WORKER TECHNICIAN Authorized by: Padmini Mar APRN.KRISTINE Informed Consent Consent Obtained: Verbal Bend Protocol SIGN IN Patient/Surrogate Stated/Verified: Patient name, Intended procedure, Date of and Relevant allergies TIME OUT Laceration Repair Body area: upper extremity Location details: left long finger Laceration length: 1 cm Foreign bodies: no foreign bodies Tendon involvement: none Nerve involvement: none Vascular damage: no Irrigation solution: saline Irrigation method: syringe Amount of cleaning: extensive Debridement: none Degree of undermining: none Skin closure: Steri-Strips Approximation difficulty: simple Dressing: non-adhesive packing strip Patient tolerance: patient tolerated the procedure well with no immediate complications History and Record Review External record(s) reviewed: prior outpatient record. Findings from review of outpatient records: last tetanus 04/2021 ASSESSMENT/PLAN: 1. Laceration of left middle finger without foreign body without damage to nail, initial encounter - ICD9: 883.0, ICD10: S61.213A Wound care discussed Monitor for signs of infection Follow up with PCP prn Diagnosis and treatment plan were discussed and questions were answered to the patient's satisfaction. Pt acknowledged understanding of concepts and follow up plan. Specific signs and symptoms that would indicate the need for higher level of care were discussed in detail warranting prompt ER evaluation. Padmini Mar APRN.NUCLEAR WORKER TECHNICIAN [1] Social History Tobacco Use Smoking status: Former Current packs/day: 0.50 Average packs/day: 0.5 packs/day for 1 year (0.5 ttl pk-yrs) Types: Cigarettes Passive exposure: Never Smokeless tobacco: Never Tobacco comments: vape Vaping Use Vaping status: current everyday user Substances: Nicotine, Flavoring Devices: Disposable Substance Use Topics Alcohol use: Not Currently Drug use: Never [facility] 11-30-2024 History of Presen t illness Narrative Associated Order(s): Laceration Procedure: left long finger Post-Procedure Diagnose(s): Laceration of left middle finger without foreign body without damage to nail, initial encounter Images from the original note were not included. Subjective Chante Hazel is a 29 year old female. The history is provided by the patient and the spouse. No customs guard was used. HPI Chante Hazel is a 29 year old female who presents today for CC of laceration on left middle finger, but about an hours ago with a facial razor. She has not used any treatment or medications. Last tdap was 04/2021 SOCIAL HISTORY[1] PAST MEDICAL HISTORY Diagnosis Date Anxiety and depression 04/04/2022 Coitus painful for female DYSMENORRHEA Ovarian cyst I have confirmed and edited as necessary, the [facility] Review of Systems Constitutional: Negative for fatigue and fever. Musculoskeletal: Negative for myalgias. Skin: Positive for wound (laceration left middle finger). Negative for color change and rash. Objective BP 104/62 Pulse 62 Temp 36.4 C (97.6 F) Resp 16 Wt 64.6 kg (142 lb 6.7 oz) LMP 05/18/2024 (Exact Date) SpO2 100% BMI 22.99 kg/m Physical Exam Constitutional: General: She is not in acute distress. HENT: Head: Normocephalic and atraumatic. Eyes: Conjunctiva/sclera: Conjunctivae normal. Pupils: Pupils are equal, round, and reactive to light. Pulmonary: Effort: Pulmonary effort is normal. Musculoskeletal: Right hand: Normal. Left hand: Tenderness present. No swelling, deformity, lacerations or bony tenderness. Normal range of motion. Normal strength. Normal sensation. There is no disruption of two-point discrimination. Normal capillary refill. Normal pulse. Hands: Cervical back: Normal range of motion and neck supple. Comments: 1cm laceration, not deep. Skin: General: Skin is warm and dry. Findings: Laceration present. Neurological: Mental Status: She is alert and oriented to person, place, and time. Laceration Procedure: left long finger Date/Time: 11/30/2024 1:20 PM Performed by: Padmini Mar APRN.NUCLEAR WORKER TECHNICIAN Authorized by: Padmini Mar APRN.CNP Informed Consent Consent Obtained: Verbal Bend Protocol SIGN IN Patient/Surrogate Stated/Verified: Patient name, Intended procedure, Date of and Relevant allergies TIME OUT Laceration Repair Body area: upper extremity Location details: left long finger Laceration length: 1 cm Foreign bodies: no foreign bodies Tendon involvement: none Nerve involvement: none Vascular damage: no Irrigation solution: saline Irrigation method: syringe Amount of cleaning: extensive Debridement: none Degree of undermining: none Skin closure: Steri-Strips Approximation difficulty: simple Dressing: non-adhesive packing strip Patient tolerance: patient tolerated the procedure well with no immediate complications History and Record Review External record(s) reviewed: prior outpatient record. Findings from review of outpatient records: last tetanus 04/2021 ASSESSMENT/PLAN: 1. Laceration of left middle finger without foreign body without damage to nail, initial encounter - ICD9: 883.0, ICD10: S61.213A Wound care discussed Monitor for signs of infection Follow up with PCP prn Diagnosis and treatment plan were discussed and questions were answered to the patient's satisfaction. Pt acknowledged understanding of concepts and follow up plan. Specific signs and symptoms that would indicate the need for higher level of care were discussed in detail warranting prompt ER evaluation. Padmini Mar APRN.KRISTINE [1] Social History Tobacco Use Smoking status: Former Current packs/day: 0.50 Average packs/day: 0.5 packs/day for 1 year (0.5 ttl pk-yrs) Types: Cigarettes Passive exposure: Never Smokeless tobacco: Never Tobacco comments: vape Vaping Use Vaping status: current everyday user Substances: Nicotine, Flavoring Devices: Disposable Substance Use Topics Alcohol use: Not Currently Drug use: Never documented in this encounter [facility] 11-30-2024 Telephone encounter Note Patient's inquiring if [facility] [place]. Patient does not have PCP with [facility]. Patient's states laceration is small and bleeding is controlled and patient is stable. Advised that patient can be seen at [facility] or ED. GO TO THE EMERGENCY ROOM OR CALL 911 IF: * You develop any new symptoms * Your condition worsens * You are concerned or anxious about your condition for any other reason. If you have any questions, you can call Nurse motion study analyst back. [facility] 11-30-2024 Miscellaneous Notes Patient's inquiring if [facility] [place]. Patient does not have PCP with [facility]. Patient's states laceration is small and bleeding is controlled and patient is stable. Advised that patient can be seen at [facility] or ED. GO TO THE EMERGENCY ROOM OR CALL 911 IF: * You develop any new symptoms * Your condition worsens * You are concerned or anxious about your condition for any other reason. If you have any questions, you can call Nurse motion study analyst back. documented in this encounter [facility] 08-06-2024 Radiology Diagnostic study note [facility] [address] [place] [address] [id number] Brain/Head without Contrast MR#: [id number] Acct: [id number] Name: CHANTE HAZEL Rep #: [id number] : 1995 F 28 From: Mily Gill MD PCP: Dr. Mary Jones MD Status: [facility] Study:Brain/Head without Contrast Date of Exa m: 08/06/24 Exam# [id number] Ordering Dr: Terry Treviño DO PROCEDURE: BRAIN/HEAD WITHOUT CONTRAST 08/06/2024 REASON FOR EXAM: PARESTHESIAS TECHNIQUE: Contiguous axial scans of 3.75 mm slice thicknesses with sagittal and coronal reconstruction images. One or more dose reduction techniques were utilized (e.g., automated exposure control, adjustment of mA and/or kv according to patient size, use of iterative reconstruction technique). RADIATION DOSE SUMMARY: DLP: 745.49 mGycm COMPARISON: No relevant prior. FINDINGS: Cerebrum: No intraparenchymal hemorrhage. No abnormal areas of encephalomalacia.No mass effect or midline shift. Mendoza-white matter differentiation is normal. Ventricles and cisterns: Appropriate size for patient's age. Extra-axial fluid: Unremarkable. Posterior fossa: Unremarkable cerebellum. No abnormalities involving the brainstem. Paranasal sinuses: Normal. Vasculature: Unremarkable. Mastoid air cells: unremarkable. Calvarium: Unremarkable. Soft tissues: Unremarkable. . Other: Bilateral sydni bullosa. CT/Brain/Head without Contrast IMPRESSION: NORMAL NONCONTRAST HEAD CT. Reading Location: TOO CC: Dr. Mary Jones MD; Dr. Terry Treviño, DO ~ [employer] Supervisor: Signed [facility] 06-11-2024 Note HNO ID: [id number] Author: AMITA LOVE APRN.NUCLEAR WORKER TECHNICIAN Service: ? Author Type: Nurse Practitioner Type: Progress Notes Filed: 06/11/2024 15:00 Note Text: VIRTUAL VISIT PROGRESS NOTE This is a virtual visit using [employer] Video Visit. It required patient-provider interaction for the medical decision making as documented below. I have communicated my name and active licensure. The patient's identity and physical location were verified at the time of this visit. Either the patient or their legal sales representative sales manager has been informed of the risks and benefits of -- and alternatives to -- treatment through a remote evaluation and consents to proceed with the evaluation remotely. Chante Hazel is a 28 year old female seen for US follow up. Reviewed ultrasound report with patient and explained the diagnosis of adenomyosis. Patient complaining of some right lower quadrant pain that started approximately 1 week ago and is radiating down into her groin/thigh area. Since pelvic ultrasound was just performed 7 days ago and there was no ovarian cyst seen at that time I recommended that the patient continue to monitor the pain or follow-up in the ED to rule out appendicitis. HISTORY REVIEWED (electronic chart updated): PAST MEDICAL HISTORY Diagnosis Date Anxiety and depression 04/04/2022 Coitus painful for female DYSMENORRHEA Ovarian cyst PAST SURGICAL HISTORY Procedure Laterality Date MOLDING OF EAR 03/06/2018 Bilateral ears stretched FAMILY HISTORY Problem Relation Age of Onset None Mother Gall Stones Father Hypertension Father Heart Father other (obesity) Father Gall Stones Sister No Known Problems Brother Osteoporosis Maternal Grandmother Diabetes Maternal Grandfather Liver Cancer Maternal Grandfather other (obesity) Paternal Grandmother Heart Paternal Grandfather Social History Tobacco Use Smoking status: Former Current packs/day: 0.50 Average packs/day: 0.5 packs/day for 1 year (0.5 ttl pk-yrs) Types: Cigarettes Passive exposure: Never Smokeless tobacco: Never Tobacco comments: vape Vaping Use Vaping status: current everyday user Substances: Nicotine, Flavoring Devices: Disposable Substance Use Topics Alcohol use: Not Currently Drug use: Never Current Outpatient Medications Medication Sig 114-IRON A-G-FOLATE 1 ORAL Take 1 capsule by mouth once daily. No current facility-administered medications for this visit. ALLERGIES No Known Allergies REVIEW OF SYSTEMS: GENERAL: doing well PHYSICAL EXAMINATION: VIDEO EXAM: (if completed, performed via video enabled technology) No exam performed ASSESSMENT/PLAN: 1. Adenomyosis - ICD9: 617.0, ICD10: N80.03 At this time patient does not want to do any control, she is wanting to try for in the near future. Follow as needed I spent a total of 20 minutes on the date of the service which included preparing to see the patient, [id number] patient care, completing clinical documentation, obtaining and/or reviewing separately obtained history, and counseling and educating the patient/family/caregiver Amita Love APRN.[facility] 06-11-2024 History of Presen t illness Narrative VIRTUAL VISIT PROGRESS NOTE This is a virtual visit using [employer] Zoom Video Visit. It required patient-provider interaction for the medical decision making as documented below. I have communicated my name and active licensure. The patient's identity and physical location were verified at the time of this visit. Either the patient or their legal sales representative sales manager has been informed of the risks and benefits of -- and alternatives to -- treatment through a remote evaluation and consents to proceed with the evaluation remotely. Chante Hazel is a 28 year old female seen for US follow up. Reviewed ultrasound report with patient and explained the diagnosis of adenomyosis. Patient complaining of some right lower quadrant pain that started approximately 1 week ago and is radiating down into her groin/thigh area. Since pelvic ultrasound was just performed 7 days ago and there was no ovarian cyst seen at that time I recommended that the patient continue to monitor the pain or follow-up in the ED to rule out appendicitis. HISTORY REVIEWED (electronic chart updated): PAST MEDICAL HISTORY Diagnosis Date Anxiety and depression 04/04/2022 Coitus painful for female DYSMENORRHEA Ovarian cyst PAST SURGICAL HISTORY Procedure Laterality Date MOLDING OF EAR 03/06/2018 Bilateral ears stretched FAMILY HISTORY Problem Relation Age of Onset None Mother Gall Stones Father Hypertension Father Heart Father other (obesity) Father Gall Stones Sister No Known Problems Brother Osteoporosis Maternal Grandmother Diabetes Maternal Grandfather Liver Cancer Maternal Grandfather other (obesity) Paternal Grandmother Heart Paternal Grandfather Social History Tobacco Use Smoking status: Former Current packs/day: 0.50 Average packs/day: 0.5 packs/day for 1 year (0.5 ttl pk-yrs) Types: Cigarettes Passive exposure: Never Smokeless tobacco: Never Tobacco comments: vape Vaping Use Vaping status: current everyday user Substances: Nicotine, Flavoring Devices: Disposable Substance Use Topics Alcohol use: Not Currently Drug use: Never Current Outpatient Medications Medication Sig 114-IRON A-G-FOLATE 1 ORAL Take 1 capsule by mouth once daily. No current facility-administered medications for this visit. ALLERGIES No Known Allergies REVIEW OF SYSTEMS: GENERAL: doing well PHYSICAL EXAMINATION: VIDEO EXAM: (if completed, performed via video enabled technology) No exam performed ASSESSMENT/PLAN: 1. Adenomyosis - ICD9: 617.0, ICD10: N80.03 At this time patient does not want to do any control, she is wanting to try for in the near future. Follow as needed I spent a total of 20 minutes on the date of the service which included preparing to see the patient, [id number] patient care, completing clinical documentation, obtaining and/or reviewing separately obtained history, and counseling and educating the patient/family/caregiver Amita Love APRN.CNP documented in this encounter [facility] 06-10-2024 Discharge summary [facility] 06-08-2024 Telephone encounter Note Please let the patient know that her ultrasound shows a small left ovarian cyst that is of no concern and will resolve on its own over the next 3 to 6 weeks. The ultrasound also suggest adenomyosis which is likely the cause of her irregular bleeding that she had in April. If she would like to discuss the ultrasound results further or has any questions she can schedule a office visit. Amita Love APRN.CNP [facility] 06-08-2024 Miscellaneous Notes Please let the patient know that her ultrasound shows a small left ovarian cyst that is of no concern and will resolve on its own over the next 3 to 6 weeks. The ultrasound also suggest adenomyosis which is likely the cause of her irregular bleeding that she had in April. If she would like to discuss the ultrasound results further or has any questions she can schedule a office visit. Amita Love APRN.CNP documented in this encounter [facility] 06-05-2024 Note HNO ID: [id number] Author: FADUMO CLARK MD Service: ? Author Type: Physician Type: Progress Notes Filed: 06/06/2024 22:06 Note Text: The patient presents for requested ultrasound. Full report available in the Imaging tab in [employer]. Fadumo Clark MD [facility] 06-05-2024 History of Presen t illness Narrative The patient presents for requested ultrasound. Full report available in the Imaging tab in [employer]. Fadumo Clark MD documented in this encounter [facility] 05-21-2024 Note HNO ID: [id number] Author: AMITA LOVE APRN.CNP Service: ? Author Type: Nurse Practitioner Type: Progress Notes Filed: 05/21/2024 16:40 Note Text: Resource Engineer offered: Patient declines. Chante is a 28 year old who presents for an annual gynecologic exam with complaints, irregular bleeding and pelvic pain. In Apr she had 3 periods and is being having right side pelvic pain. Menses: cycles every 25-30 days and 4-5 days of flow. Contraception: none HPV vaccine: Yes Last Pap: 04/30/2022 normal HPV: N/A History of abnormal pap: No Last mammogram: never Sexually active: Yes Pain with intercourse: No Postcoital bleeding: No OB History Gravida0 Para0 Term0 Preterm0 AB0 Living0 SAB0 IAB0 Ectopic0 Multiple0 Live Births0 [employer] History LMP: 05/18/2024 (Exact Date), Having periods Age at Menarche: 13 Age at First : Age at Menopause: [employer] History Comments: Sexual Activity: Yes; Male Contraception: None Menstrual Tracking History Flowsheet Row Office Visit from 05/21/2024 in OB/Gynecology Period Duration (Days) 6 Menstrual Flow Moderate PAST MEDICAL HISTORY Diagnosis Date Anxiety and depression 04/04/2022 Coitus painful for female DYSMENORRHEA Ovarian cyst PAST SURGICAL HISTORY Procedure Laterality Date MOLDING OF EAR 03/06/2018 Bilateral ears stretched FAMILY HISTORY Problem Relation Age of Onset None Mother Gall Stones Father Hypertension Father Heart Father other (obesity) Father Gall Stones Sister No Known Problems Brother Osteoporosis Maternal Grandmother Diabetes Maternal Grandfather Liver Cancer Maternal Grandfather other (obesity) Paternal Grandmother Heart Paternal Grandfather SOCIAL HISTORY Social History Tobacco Use Smoking status: Former Current packs/day: 0.50 Average packs/day: 0.5 packs/day for 1 year (0.5 ttl pk-yrs) Types: Cigarettes Passive exposure: Never Smokeless tobacco: Never Tobacco comments: vape Vaping Use Vaping status: current everyday user Substances: Nicotine, Flavoring Devices: Disposable Substance Use Topics Alcohol use: Not Currently Drug use: Never REVIEW OF SYSTEMS Abdomen: No abdominal pain, nausea, vomiting, diarrhea, or constipation. No bloating, early satiety, indigestion, or increased flatulence. Bladder: No dysuria, gross hematuria, urinary frequency, urinary urgency, or incontinence. Breast: No breast lumps, nipple d/c, overlying skin changes, redness or skin retraction. Allergies and current medication updated:Yes SENSITIVE EXAM: The sensitive examination was discussed with the Patient or Patient's Authorized Scrap Bunch Maker. As applicable, any other physician, advance practice provider, medical student, or other health professional student that will be observing or involved in the sensitive examination for educational or training purposes was discussed with the Patient or Authorized Scrap Bunch Maker. The Patient or Authorized Scrap Bunch Maker has agreed to proceed with the sensitive examination. (Sensitive examination includes inspection and/or palpation of the breasts, pelvis, prostate and anorectal regions). EXAM: BP 112/66 Ht 5' 6 (1.68m) Wt 141 lb (64.0kg) LMP 05/18/2024 BMI 22.77 kg/(m2). GENERAL: pleasant, female in no apparent distress HEENT: Normocephalic, atraumatic, mucus membranes moist, and no lesions DERMATOLOGY: Normal, without lesions, non-icteric, and non-hirsute BREAST: soft, non-tender, symmetric, no dominant mass, normal nipple-areolar complex, no lymphadenopathy, and no nipple discharge CHEST: Normal inspiratory effort ABDOMEN: soft, non-tender, and no masses PELVIC: external genitalia normal, normal Bartholin's glands, urethra, Attapulgus's glands, no vulvar lesions, no cervical lesions, good vaginal support, physiologic discharge present, normal appearing perineal body and perianal region BIMANUAL: uterus normal size, shape and consistency, no adnexal masses, and non-tender RECTOVAGINAL: deferred. NEURO: alert and oriented x3,exam grossly non-focal EXTREMITIES: normal ASSESSMENT/PLAN: 1) Health maintenance: Pap/HPV up to date. Mammogram starting age 40. Nutrition, exercise and routine health maintenance exams reviewed. Calcium/Vitamin D supplementation information provided. Colon cancer screening: start at age 45 2) Contraception: none. Contraceptive options reviewed and information provided. 3) STD screening: Declined STD check. 4) Follow up one year or sooner as needed 5) Pelvic US for irregular bleeding and pain Amita Love APRN.[facility] 05-21-2024 History of Presen t illness Narrative Resource Engineer offered: Patient declines. Chante is a 28 year old who presents for an annual gynecologic exam with complaints, irregular bleeding and pelvic pain. In Apr she had 3 periods and is being having right side pelvic pain. Menses: cycles every 25-30 days and 4-5 days of flow. Contraception: none HPV vaccine: Yes Last Pap: 04/30/2022 normal HPV: N/A History of abnormal pap: No Last mammogram: never Sexually active: Yes Pain with intercourse: No Postcoital bleeding: No OB History Gravida0 Para0 Term0 Preterm0 AB0 Living0 SAB0 IAB0 Ectopic0 Multiple0 Live Births0 Silver Solution Mixer History LMP: 05/18/2024 (Exact Date), Having periods Age at Menarche: 13 Age at First : Age at Menopause: Silver Solution Mixer History Comments: Sexual Activity: Yes; Male Contraception: None Menstrual Tracking History Flowsheet Row Office Visit from 05/21/2024 in OB/Gynecology Period Duration (Days) 6 Menstrual Flow Moderate PAST MEDICAL HISTORY Diagnosis Date Anxiety and depression 04/04/2022 Coitus painful for female DYSMENORRHEA Ovarian cyst PAST SURGICAL HISTORY Procedure Laterality Date MOLDING OF EAR 03/06/2018 Bilateral ears stretched FAMILY HISTORY Problem Relation Age of Onset None Mother Gall Stones Father Hypertension Father Heart Father other (obesity) Father Gall Stones Sister No Known Problems Brother Osteoporosis Maternal Grandmother Diabetes Maternal Grandfather Liver Cancer Maternal Grandfather other (obesity) Paternal Grandmother Heart Paternal Grandfather SOCIAL HISTORY Social History Tobacco Use Smoking status: Former Current packs/day: 0.50 Average packs/day: 0.5 packs/day for 1 year (0.5 ttl pk-yrs) Types: Cigarettes Passive exposure: Never Smokeless tobacco: Never Tobacco comments: vape Vaping Use Vaping status: current everyday user Substances: Nicotine, Flavoring Devices: Disposable Substance Use Topics Alcohol use: Not Currently Drug use: Never REVIEW OF SYSTEMS Abdomen: No abdominal pain, nausea, vomiting, diarrhea, or constipation. No bloating, early satiety, indigestion, or increased flatulence. Bladder: No dysuria, gross hematuria, urinary frequency, urinary urgency, or incontinence. Breast: No breast lumps, nipple d/c, overlying skin changes, redness or skin retraction. Allergies and current medication updated:Yes SENSITIVE EXAM: The sensitive examination was discussed with the Patient or Patient's Authorized Scrap Bunch Maker. As applicable, any other physician, advance practice provider, medical student, or other health professional student that will be observing or involved in the sensitive examination for educational or training purposes was discussed with the Patient or Authorized Scrap Bunch Maker. The Patient or Authorized Scrap Bunch Maker has agreed to proceed with the sensitive examination. (Sensitive examination includes inspection and/or palpation of the breasts, pelvis, prostate and anorectal regions). EXAM: BP 112/66 Ht 5' 6 (1.68m) Wt 141 lb (64.0kg) LMP 05/18/2024 BMI 22.77 kg/(m^2). GENERAL: pleasant, female in no apparent distress HEENT: Normocephalic, atraumatic, mucus membranes moist, and no lesions DERMATOLOGY: Normal, without lesions, non-icteric, and non-hirsute BREAST: soft, non-tender, symmetric, no dominant mass, normal nipple-areolar complex, no lymphadenopathy, and no nipple discharge CHEST: Normal inspiratory effort ABDOMEN: soft, non-tender, and no masses PELVIC: external genitalia normal, normal Bartholin's glands, urethra, Attapulgus's glands, no vulvar lesions, no cervical lesions, good vaginal support, physiologic discharge present, normal appearing perineal body and perianal region BIMANUAL: uterus normal size, shape and consistency, no adnexal masses, and non-tender RECTOVAGINAL: deferred. NEURO: alert and oriented x3,exam grossly non-focal EXTREMITIES: normal ASSESSMENT/PLAN: 1) Health maintenance: Pap/HPV up to date. Mammogram starting age 40. Nutrition, exercise and routine health maintenance exams reviewed. Calcium/Vitamin D supplementation information provided. Colon cancer screening: start at age 45 2) Contraception: none. Contraceptive options reviewed and information provided. 3) STD screening: Declined STD check. 4) Follow up one year or sooner as needed 5) Pelvic US for irregular bleeding and pain Amita Love APRN.KRISTINE documented in this encounter [facility] 07-01-2023 History of Presen t illness Narrative Resource Engineer offered: Patient declines. Chante is a 27 year old who presents for an annual gynecologic exam without complaints. 6 months of actively trying for Menses: cycles every 25-30 days and 4-5 days of flow. Contraception: none HPV vaccine: Yes Last Pap: 04/30/2022 normal HPV: N/A History of abnormal pap: No Last mammogram: never Sexually active: Yes Pain with intercourse: No Postcoital bleeding: No OB History T0 L0 SAB0 IAB0 Ectopic0 Multiple0 Live Births0 Silver Solution Mixer History LMP: 06/17/2023 (Exact Date), Having periods Age at Menarche: Age at First : Age at Menopause: Silver Solution Mixer History Comments: Sexual Activity: Yes; Male Contraception: Pill PAST MEDICAL HISTORY Diagnosis Date Anxiety and depression 04/04/2022 DYSMENORRHEA PAST SURGICAL HISTORY Procedure Laterality Date MOLDING OF EAR 03/06/2018 Bilateral ears stretched FAMILY HISTORY Problem Relation Age of Onset None Mother Gall Stones Father Hypertension Father Heart Father other (obesity) Father Gall Stones Sister No Known Problems Brother Osteoporosis Maternal Grandmother Diabetes Maternal Grandfather Liver Cancer Maternal Grandfather other (obesity) Paternal Grandmother Heart Paternal Grandfather SOCIAL HISTORY Social History Tobacco Use Smoking status: Former Packs/day: 0.50 Years: 1.00 Additional pack years: 0.00 Total pack years: 0.50 Types: Cigarettes Passive exposure: Never Smokeless tobacco: Never Tobacco comments: vape Vaping Use Vaping Use: current everyday user Substances: Nicotine, Flavoring Devices: Disposable Substance Use Topics Alcohol use: Not Currently Drug use: Never REVIEW OF SYSTEMS Abdomen: No abdominal pain, nausea, vomiting, diarrhea, or constipation. No bloating, early satiety, indigestion, or increased flatulence. Bladder: No dysuria, gross hematuria, urinary frequency, urinary urgency, or incontinence. Breast: No breast lumps, nipple d/c, overlying skin changes, redness or skin retraction. Allergies and current medication updated:Yes EXAM: BP 110/70 Ht 5' 5.5 (1.66m) Wt 151 lb 12.8 oz (68.9kg) LMP 06/17/2023 BMI 24.87 kg/(m^2). GENERAL: pleasant, female in no apparent distress HEENT: Normocephalic, atraumatic, mucus membranes moist, and no lesions NECK: Supple, full range of motion, no adenopathy, and thyroid normal DERMATOLOGY: Normal, without lesions, non-icteric, and non-hirsute BREAST: soft, non-tender, symmetric, no dominant mass, normal nipple-areolar complex, no lymphadenopathy, and no nipple discharge CHEST: Normal inspiratory effort ABDOMEN: soft, non-tender, and no masses PELVIC: external genitalia normal, normal Bartholin's glands, urethra, Attapulgus's glands, no vulvar lesions, no cervical lesions, good vaginal support, physiologic discharge present, normal appearing perineal body and perianal region BIMANUAL: uterus normal size, shape and consistency, no adnexal masses, and non-tender RECTOVAGINAL: deferred. NEURO: alert and oriented x3,exam grossly non-focal EXTREMITIES: normal ASSESSMENT/PLAN: 1) Health maintenance: Pap/HPV up to date. Mammogram starting age 40. Nutrition, exercise and routine health maintenance exams reviewed. Calcium/Vitamin D supplementation information provided. 2) Contraception: none. Contraceptive options reviewed and information provided. 3) STD screening: Declined STD check. 4) Follow up one year or sooner as needed Amita Love APRN.KRISTINE documented in this encounter [facility] 09-24-2022 History of Presen t illness Narrative Patient presents to [facility] tri[facility] with dizziness. I had walked into the room after she had been roomed and she is hyperventilating and saying that she cannot see. Very anxious. Mom does note a history of anxiety for patient. She is crying and inconsolable here. I recommended she be seen in the emergency department for further management and evaluation. Recommended squad transport, patient declined. Her mother will take her to [facility] across the street. documented in this encounter [facility] 04-23-2022 History of Presen t illness Narrative Resource Engineer offered: Patient declines. Chante is a 26 year old who presents for an annual gynecologic exam without complaints. Menses: cycles every 25-30 days and 7-8 days of flow. Contraception: combined hormonal contraceptives HPV vaccine: Yes Last Pap: 2017 normal HPV: N/A History of abnormal pap: No Last mammogram: never Sexually active: Yes Pain with intercourse: No Postcoital bleeding: No OB History T0 L0 SAB0 IAB0 Ectopic0 Multiple0 Live Births0 Silver Solution Mixer History LMP: 01/18/2022, Having periods Age at Menarche: Age at First : Age at Menopause: Silver Solution Mixer History Comments: Sexual Activity: Yes; Male Contraception: Condom, Pill PAST MEDICAL HISTORY Diagnosis Date DYSMENORRHEA PAST SURGICAL HISTORY Procedure Laterality Date MOLDING OF EAR 03/06/2018 Bilateral ears stretched FAMILY HISTORY Problem Relation Age of Onset None Mother Hypertension Father Heart Father other (obesity) Father Diabetes Maternal Grandfather Osteoporosis Maternal Grandmother Heart Paternal Grandfather other (obesity) Paternal Grandmother No Known Problems Sister No Known Problems Brother SOCIAL HISTORY Social History Tobacco Use Smoking status: Former Packs/day: 0.50 Years: 1.00 Pack years: 0.50 Types: Cigarettes Smokeless tobacco: Current Tobacco comments: vape Substance Use Topics Alcohol use: Yes Comment: socially Drug use: No REVIEW OF SYSTEMS Abdomen: No abdominal pain, nausea, vomiting, diarrhea, or constipation. No bloating, early satiety, indigestion, or increased flatulence. Bladder: No dysuria, gross hematuria, urinary frequency, urinary urgency, or incontinence. Breast: No breast lumps, nipple d/c, overlying skin changes, redness or skin retraction. Allergies and current medication updated:Yes EXAM: LMP 01/18/2022 GENERAL: pleasant, female in no apparent distress HEENT: Normocephalic, atraumatic, mucus membranes moist, and no lesions NECK: Supple, full range of motion, no adenopathy, and thyroid normal DERMATOLOGY: Normal, without lesions, non-icteric, and non-hirsute BREAST: soft, non-tender, symmetric, no dominant mass, normal nipple-areolar complex, no lymphadenopathy, no nipple discharge, and nipples pierced CHEST: Normal inspiratory effort ABDOMEN: soft, non-tender, and no masses PELVIC: external genitalia normal, normal Bartholin's glands, urethra, Attapulgus's glands, no vulvar lesions, no cervical lesions, good vaginal support, normal appearing perineal body and perianal region, thick white discharge BIMANUAL: uterus normal size, shape and consistency, no adnexal masses, and non-tender RECTOVAGINAL: deferred. NEURO: alert and oriented x3,exam grossly non-focal EXTREMITIES: normal ASSESSMENT/PLAN: 1) Health maintenance: Pap done with reflex HPV. Mammogram starting age 40. Nutrition, exercise and routine health maintenance exams reviewed. Calcium/Vitamin D supplementation information provided. 2) Contraception: combined hormonal contraceptives. Contraceptive options reviewed and information provided. 3) STD screening: Declined STD check. 4) Follow up one year or sooner as needed 5) BV/yeast ordered If periods do not make improvement over the next few months pt would be interested in changing pills. [facility] Amita Love APRN.KRISTINE documented in this encounter [facility] 01-25-2022 History of Presen t illness Narrative CC: Patient presents with: Cough: Pain rated 6, nasal congestion, x6 days. HPI: Chante Hazle is a 26 year old female who presents to the office with complaint of cough, nonproductive, sore throat, and sinus symptoms for a few days. Symptoms are worsening Associated symptoms includes decreased appetite. Denies fever, nausea, vomiting , and diarrhea. Treatments tried include nothing so far. with no relief of symptoms. Sick contacts: unknown. History of asthma, frequent episodes of bronchitis, chronic bronchitis, bronchiectasis or COPD: No Smoker: No Seasonal/environmental allergies: No The ROS is otherwise negative. The patient's pmh, medications, allergies, and past visits are reviewed. PHYSICAL EXAM: BP 124/86 Pulse 71 Temp 37 C (98.6 F) Resp 18 Wt 57.1 kg (125 lb 12.8 oz) LMP 01/18/2022 SpO2 99% BMI 19.74 kg/m General appearance: alert, cooperative, pleasant, in no acute distress Head: Normocephalic Eyes: EOM's intact, conjunctiva pink and moist, no icterus, sclera white, non-injected Ears: Right ear: External ear/canal- Normal, TM - clear with good landmarks. Left ear: External ear/canal- Normal, TM - clear with good landmarks Oropharynx:moderate erythema, without exudates present Heart: Negative. RRR without obvious murmur, gallop, or rubs. No ectopy. Lungs: clear to auscultation, without rales or wheeze, good air exchange PAST MEDICAL HISTORY Diagnosis Date DYSMENORRHEA PAST SURGICAL HISTORY Procedure Laterality Date MOLDING OF EAR 03/06/2018 Bilateral ears stretched ALLERGIES Patient has no known allergies. MEDICATIONS SPRINTEC 0.25-35 mg-mcg per tablet TAKE 1 TABLET BY MOUTH EVERY DAY albuterol HFA (VENTOLIN HFA) 90 mcg/actuation inhaler Inhale 2 Puffs as instructed every 4 hours as needed. (Patient not taking: Reported on 01/25/2022) Ldutpcidsgylvcr-Dgxerqxyt-CU (BROMFED DM) 2-30-10 mg/5 mL syrup Take 5 mL by mouth four times daily as needed. (Patient not taking: Reported on 11/16/2020 ) FAMILY HISTORY Problem Relation Age of Onset None Mother Hypertension Father Heart Father other (obesity) Father Diabetes Maternal Grandfather Osteoporosis Maternal Grandmother Heart Paternal Grandfather other (obesity) Paternal Grandmother No Known Problems Sister No Known Problems Brother Social History Tobacco Use Smoking status: Former Packs/day: 0.50 Years: 1.00 Pack years: 0.50 Types: Cigarettes Smokeless tobacco: Current Tobacco comments: vape Substance Use Topics Alcohol use: Yes Comment: socially Drug use: No ASSESSMENT/PLAN: 1. Sore throat - ICD9: 462, ICD10: J02.9 (primary diagnosis) - COVID WITH FLUA+B, ROUTINE - STREP A MOLECULAR (POC) - negative 2. At increased risk of exposure to COVID-19 virus - ICD9: V15.89, ICD10: Z91.89 - COVID WITH FLUA+B, ROUTINE Patient was instructed to gflq-yxq-wqtlhvm medication and do supportive therapies while waiting on the viral panel. Prescription instructions reviewed with patient as applicable. Potential red flag symptoms discussed with the patient. Reviewed appropriate action plan to take if red flag symptoms occur. Patient agreeable to treatment plan. Aggie Kelly APRN.KRISTINE documented in this encounter [facility] Discharge summary Note Date/Time June 10, 2024 8:57am [facility] Medical Records Department [address] [place] [address] Emergency Department Summary 06/10/24 MR#: [id number] Acct: [id number] Name: CHANTE HAZEL Rep #:[id number] : 1995 28 From: Cordell jackson DO PCP: Dr. Mary Jones MD Status:PRE ER Location: ED HPI History of Present Illness Chief Complaint: Anxiety Narrative Narrative: Chief complaint and HPI: Anxiety and episodic panic attacks. 28-year-old femalewith past medical history of anxiety and depression presents for evaluation of anxiety and episodic panic attacks. Patient states that she has been having increase anxiety. She states she was started on fluoxetine as well as hydroxyzine approximately 4 weeks ago for her symptoms. Patient states she is still having intermittent anxiety as well as panic attacks. Panic attacks are random and not specifically related to an incident or event. She has noticed that her anxiety is worse while driving. She denies any tearfulness, depression, suicidal ideation, homicidal ideation, visual or auditory hallucinations. Patient states that her anxiety and episodic panic attacks are causing difficulty with work. She does not follow with a psychiatrist. Patientstates she had a panic attack earlier this morning in which she took hydroxyzine. She denies any fever, chills, shortness of breath, chest pain, abdominal pain, nausea, vomiting. States while driving she has been having intermittent and ear popping but no pain. Review of systems: See HPI Medications: As listed on the chart Allergies: As listed on the chart PFSH: Per chart Vital signs: As listed on the chart. Reviewed. Physical exam: Gen: A&O x3, NAD Head: Normocephalic, atraumatic Eyes: No sclera icterus, conjunctiva clear, PERRL, EOMI ENT: TMs clear BL, moist mucous membranes, no nasal congestion Neck: Trachea midline, full range of motion Resp: Lungs CTA BL, no w/r/c Musc: Full ROM, no deformity Skin: Warm Neuro: Alert, oriented, grossly intact, sensation intact Psych: Cooperative, mildly anxious [facility] Medical History Abdominal pain Abnormal weight loss Allergic rhinitis Anxiety and depression Chest pain Fatigue Frequent headaches Headache Hypokalemia Paresthesia Rectal bleeding Home Medications ?Medication ?Instructions ?Recorded ?Last Taken ?Type fluoxetine 10 mg tablet 10 mg PO DAILY 06/10/24 Unkn own History hydroxyzine HCl 10 mg tablet 10 mg PO TID PRN PRN anxi ety 06/10/24 Unknown History Allergy/AdvReac Type Severity Reaction Status Date / Time No Known Allergies Allergy Verified 06/10/24 08:30 Family History Unknown No problems noted. Father Hypertension Social History Smoking Status: Current every day smoker tobacco type: e-cigarettes EXAM Physical Exam Const Vital Signs: 06/10/24 08:28 Temperature 98.1 F Temperature Source Temporal Pulse Rate 68 Respiratory Rate 15 Blood Pressure 134/79 H Blood Pressure Mean 97 Pulse Ox 100 Oxygen Delivery Method Room Air MDM MDM MDM Narrative Medical decision making narrative: 28-year-old female with past medical history of anxiety and depression presents for evaluation of anxiety and episodic panic attacks. Differential diagnosis includes but is not limited to generalized anxiety, panic attacks, depression. On presentation vitals are stable other than mild hypertension. Patient is alert and oriented and in no acute distress. On physical exam she is not in a panic attack but is mildly anxious. Given that patient was recently started on fluoxetine and hydroxyzine will not increase dosing as it is only been 4 weeks. It takes 4 to 6 weeks to become therapeutic. She is on low-dose of fluoxetine. Patient does not follow with a psychiatrist or counselor. I did want to consultmy social work however they are not present until 10 AM. Instead, patient will be referred to a psychiatrist as well as the counseling center for outpatient resources. Follow-up with her primary care physician. She was given Ativan here in the emergency room. She is not driving today. Will be given a work note for the next few days until she feels that her anxiety has improved. She was educated on qpih-awr-qumksbm allergy medicine for her intermittent ear popping/eustachian tube dysfunction. Impression: 1. Anxiety 2. Panic attacks 3. Eustachian tube dysfunction Discharge Plan Triage Chief Complaint: Anxiety ED Provider: Cordell Lenz Dx/Rx/DC Orders Prescriptions: No Action fluoxetine 10 mg tablet 10 mg PO DAILY hydroxyzine HCl 10 mg tablet 10 mg PO TID PRN PRN (Reason: anxiety) Primary Care Provider: Mary Jones Referrals: Mary Jones MD [Primary Care Provider] - Print Language: Kazakh What to do if you have Problems For any increased pain, shortness of breath, bleeding, nausea or vomiting, chestpain, or any unexpected problems, contact your Primary Care Provider. Call [facility] ([phone]) or report to the closest Emergency Room. Call 911 if necessary. 06/10/24 0840 <Electronically signed by Cordell Lenz DO> Ayah Signature (if applicable): CC: Dr. Mary Jones MD ~ Signed [facility] Work Phone: [employer] note* Diagnosis Sore throat- Primary Acute pharyngitis At increased risk of exposure to COVID-19 virus documented in this encounter [facility] noteNo assessment information availableWCleveland Clinic [facility] Work Phone: Evaluation note* Diagnosis Encounter for gynecological examination (general) (routine) without abnormal findings- Primary Screening for cervical cancer Screening for malignant neoplasm of the cervix Encounter for screening for human papillomavirus (HPV) Special screening examination for human papillomavirus (HPV) Vaginal discharge Leukorrhea, not specified as infective [facility] Diagnosis Dizziness- Primary Dizziness and giddiness Visual changes Unspecified visual disturbance Hyperventilating Hyperventilation [facility] Diagnosis Encounter for gynecological examination (general) (routine) without abnormal findings- Primary [facility] Diagnosis Encounter for gynecological examination (general) (routine) without abnormal findings- Primary Pelvic pain in female Unspecified symptom associated with female genital organs documented [facility]* Diagnosis Pelvic pain in female- Primary Unspecified symptom associated with female genital organs Paratubal cyst Other noninflammatory disorder of ovary, fallopian tube, and broad ligament Adenomyosis of the uterus documented [facility]* Diagnosis Adenomyosis- Primary Endometriosis of uterus documented [facility]* Diagnosis Laceration of left middle finger without foreign body without damage to nail, initial encounter- Primary [facility]* Diagnosis Onset Date Resolution Status Admit Date Migraine headache acute 2024 8:51am Peripheral vestibulopathy acute December 08, 2024 8:51am [facility] Work Phone: Hospital Discharge instructions Additional Instructions Your exam and labs were all unremarkable. Normal blood sugar. Follow-up with your primary care provider or return if feeling worse.[facility] Work Phone: Hospital Discharge instructions Additional Instructions Return back to the ED if symptoms change or worsen. Follow-up with the providers listed above.[facility] Work Phone: Hospital Discharge instructions Additional Instructions CT brain negative. Labs are normal EKG normal. Which concerns a weakness and transient numbness, follow-up with neurology. Continue your anxiety medicines through your doctor. [facility] Work Phone: Hospital Discharge instructionsAmbulatory Orders* Physical Therapy Referral Location: None Selected [facility] Work Phone: Reason for referral (narrative)No reason for referral information availableWC[facility] Work Phone: Recrga for visit Narrative* Diagnostic Procedure Only (Routine) - Closed Specialty Diagnoses / Procedures Referred By Tyler snyder Referred To Contact [facility] Diagnoses Pelvic pain in female Procedures PELVIC US WHI US PELVIC NONOBSTETRIC REAL-TIME IMAGE COMPLETE Amita Love APRN.NUCLEAR WORKER TECHNICIAN [address] [place] [address] Phone: tel: fax: [facility] [address] [place] [address] Referral ID Status Reason Start Date Expiration Date V isits Requested Visits Authorized [id number] Closed Auto-Generate d Referral 05/21/2024 05/21/2025 1 1 [facility] Concerns Infection Onset Date Last Indicated Resolved Time COVID-19 Rule-Out 01/25/2022 01/25/2022 Advance Directives No Advanced Directives Records Found Advance Directive Response Recorded Date/ Time Living Will No February 26 018 9:04am Power of Dinkey Operator Slag No February 26, 2018 9:04am Advance Directive Response Recorded Date/ Time Living Will No September 24, 2022 8:49am Power of Dinkey Operator Slag No September 24 8:49am Advance Directive Response Recorded Date/ Time Living Will No June 10, 2024 9:13am Power of Dinkey Operator Slag No June 10 9:13am Advance Directive Response Recorded Date/ Time Living Will No June 10, 2024 9:13am Do you have a Healthcare Power of Dinkey Operator Slag? No June 10, 2024 9:13am Do you have a Healthcare Power of Dinkey Operator Slag? No August 06, 2024 8:07am Chief Complaint and Reason for Visit Chief Complaint sob, dizziness, weak ness Chief Complaint sob, dizziness, weak ness xray Chief Complaint RLQ ABDOMINAL PAIN Chief Complaint Admit Date ANXIETY June 10, 2024 8:2 7am Chief Complaint Admit Date ANXIETY June 10, 2024 8:2 7am anxiety August 06, 2024 8:04am Chief Complaint Admit Date ANXIETY June 10, 2024 8:2 7am anxiety August 06, 2024 8:04am DIZZINESS August 25, 2024 8:48a m Chief Complaint Admit Date DIZZINESS August 25, 2024 8:48a m Dizziness (cardiology) September 15, 2024 6 :43am SEEN IN ER/ DIZZINESS, HEADACHE Septembe r 2024 8:51am Reason for Visit Admit Date Migraine headache December 08, 2024 8:51am Peripheral vestibulopathy December 08, 2024 8:51am Summary Purpose Family History No Family History Records Found Additional Source Comments Source Comments (unrecognize d section and content) In the event this informatio n is protected by the Federal Confidentiality of Alcohol and Drug Abuse Patient Records regulations: The Federal rules restrict any use of the information to criminally investigate or prosecute any alcohol or drug abuse patient.[facility] the event this information is protected by the Federal Confidentiality of Alcohol and Drug Abuse Patient Records regulations: The Federal rules restrict any use of the information to criminally investigate or prosecute any alcohol or drug abuse patient.[facility] FoundationIn the event this information is protected by the Federal Confidentiality of Alcohol and Drug Abuse Patient Records regulations: The Federal rules restrict any use of the information to criminally investigate or prosecute any alcohol or drug abuse patient.[facility] FoundationIn the event this information is protected by the Federal Confidentiality of Alcohol and Drug Abuse Patient Records regulations: The Federal rules restrict any use of the information to criminally investigate or prosecute any alcohol or drug abuse patient.[facility] FoundationIn the event this information is protected by the Federal Confidentiality of Alcohol and Drug Abuse Patient Records regulations: The Federal rules restrict any use of the information to criminally investigate or prosecute any alcohol or drug abuse patient.[facility] FoundationIn the event this information is protected by the Federal Confidentiality of Alcohol and Drug Abuse Patient Records regulations: The Federal rules restrict any use of the information to criminally investigate or prosecute any alcohol or drug abuse patient.[facility] FoundationIn the event this information is protected by the Federal Confidentiality of Alcohol and Drug Abuse Patient Records regulations: The Federal rules restrict any use of the information to criminally investigate or prosecute any alcohol or drug abuse patient.[facility] FoundationIn the event this information is protected by the Federal Confidentiality of Alcohol and Drug Abuse Patient Records regulations: The Federal rules restrict any use of the information to criminally investigate or prosecute any alcohol or drug abuse patient.[facility] FoundationIn the event this information is protected by the Federal Confidentiality of Alcohol and Drug Abuse Patient Records regulations: The Federal rules restrict any use of the information to criminally investigate or prosecute any alcohol or drug abuse patient.[facility] FoundationIn the event this information is protected by the Federal Confidentiality of Alcohol and Drug Abuse Patient Records regulations: The Federal rules restrict any use of the information to criminally investigate or prosecute any alcohol or drug abuse patient.[facility] Reason for Visit (unrecogniz ed section and content) Reason Comments Cough Pain rated 6, nasal congestion, x6 days. Reason Comments Silver Solution Mixer Exam Reason Comments Yearly Exam Reason Comments Well Woman Reason Comments Results Reason Onset Date Comments Results 06/08/2024 Reason Comments Opened In Error Reason Comments Laceration left middle finger x 1 hour, cut with facial razor Care Teams (unrecognized sec tion and content) Team Status: Active Member Role Status Dates Mary Jones MD Primary Care Provider Active Team Status: Inactive Member Role Status Dates Mary Jones MD Primary Care Provider Active St art: May 29, 2024 End: May 29, 2024 Mary Jones MD Attending Provider Active Start : May 29, 2024 End: May 29, 2024 Mary Jones MD Referring Provider Active Start : May 29, 2024 End: May 29, 2024 Team Status: Inactive Member Role Status Dates Mary Jones MD Primary Care Provider Active St art: June 10, 2024 End: June 10, 2024 Dr. Cordell Lenz DO Emergency Provider Activ e Start: June 10, 2024 End: June 10, 2024 Team Status: Active Member Role Status Dates Dr. Darrell Neumann MD Family Provider Active Nadeen Love , [employer] Primary Care Provider Acti ve Team Status: Inactive Member Role Status Dates Nadeen Love [employer] Primary Care Provider, Att ending Provider Active Team Status: Active Member Role Status Dates Dr. Darrell Neumann MD Family Provider Active Good Hodge DO Primary Care Provider Active Team Status: Inactive Member Role Status Dates Dr. Reji Gardner MD Emergency Provider Active Good Hodge DO Primary Care Provider Active Unit Technician Relationship Specialty Start Date End Date Good Hodge DO [address] [facility] [address] [place] [address] PCP - General Family Medicine 09/24/22 Team Status: Active Member Role Status Dates Dr. Darrell Neumann MD Family Provider Active Mary Jones MD Primary Care Provider Active Team Status: Inactive Member Role Status Dates Mary Jones MD Primary Care Provider Active Dr. Christ Nguyen MD Attending Provider Active Team Status: Inactive Member Role Status Dates Dr. Reji Gardner MD Attending Provider, Emergency Pro vider Active Good Hodge DO Primary Care Provider Active Team Status: Inactive Member Role Status Dates Mary Jones MD Primary Care Provide r, Attending Provider, Referring Provider Active Unit Technician Relationship Specialty Start Date End Date Good Hodge DO [facility] [place] [address] [place] [address] PCP - General Family Medicine 09/24/22 Unit Technician Relationship Specialty Start Date End Date Good Hodge DO PCP - General Family Medicine 09/24/22 Unit Technician Relationship Specialty Start Date End Date Good Hodge DO PCP - General Family Medicine 09/24/22 Unit Technician Relationship Specialty Start Date End Date Good Hodge DO PCP - General Family Medicine 09/24/22 Team Status: Active Member Role Status Dates Mary Jones MD Primary Care Provider Active St art: May 29, 2024 Mary Jones MD Attending Provider Active Start : May 29, 2024 Mary Jones MD Referring Provider Active Start : May 29, 2024 Team Status: Inactive Member Role Status Dates Mary Jones MD Primary Care Provider Active St art: June 10, 2024 End: June 10, 2024 Dr. Cordell Lenz , Attending Provider Activ e Start: June 10, 2024 End: June 10, 2024 Dr. Cordell Lenz , Emergency Provider Activ e Start: June 10, 2024 End: June 10, 2024 Team Status: Inactive Member Role Status Dates Mary Jones MD Primary Care Provider Active St art: August 06, 2024 End: August 06, 2024 Dr. Terry Treviño DO Emergency Provider Active Start : August 06, 2024 End: August 06, 2024 Unit Technician Relationship Specialty Start Date End Date Naveen Good Steiner DO PCP - General Family Medicine 09/24/22 Team Status: Inactive Member Role Status Maximiliano Jones MD Primary Care Provider Active St art: August 06, 2024 End: August 06, 2024 Dr. Terry Treviño DO Attending Provider Active Start : August 06, 2024 End: August 06, 2024 Dr. Terry Treviño DO Emergency Provider Active Start : August 06, 2024 End: August 06, 2024 Team Status: Inactive Member Role Status Maximiliano Jones MD Primary Care Provider Active St art: August 25, 2024 End: August 25, 2024 Mary Jones MD Attending Provider Active Start : August 25, 2024 End: August 25, 2024 Mary Jones MD Referring Provider Active Start : August 25, 2024 End: August 25, 2024 Unit Technician Relationship Specialty Start Date End Date Good Hodge PCP - General Family Medicine 09/24/22 Unit Technician Relationship Specialty Start Date End Date Good Hodge PCP - General Family Medicine 09/24/22 Team Status: Active Member Role/Relationship Status Maximiliano Jones MD Primary Care Provider Active Team Status: Inactive Member Role/Relationship Status Maximiliano Jones MD Primary Care Provider Active St art: August 25, 2024 End: August 25, 2024 Mary Jones MD Attending Provider Active Start : August 25, 2024 End: August 25, 2024 Mary Jones MD Referring Provider Active Start : August 25, 2024 End: August 25, 2024 Team Status: Active Member Role/Relationship Status Maximiliano Jones MD Primary Care Provider Active St art: September 15, 2024 Mary Jones MD Referring Provider Active Start : September 15, 2024 Mary Jones MD Other Provider Active Start: Ananya 2024 Dr. Christ Nguyen MD Attending Provider Active S tart: September 15, 2024 Team Status: Inactive Member Role/Relationship Status Dates Mary Jones MD Primary Care Provider Active St art: December 08, 2024 End: December 08, 2024 Mary Jones MD Referring Provider Active Start : December 08, 2024 End: December 08, 2024 Dr. Norman Ford MD Attending Provider Active Start: December 08, 2024 End: December 08, 2024 Goals (unrecognized section and content) Goals may be documented in a n alternate sectionGoals may be documented in an alternate sectionGoals may be documented in an alternate sectionGoals may be documented in an alternate sectionGoals may be documented in an alternate sectionGoals may be documented in an alternate sectionGoals may be documented in an alternate sectionGoals may be documented in an alternate sectionGoals may be documented in an alternate section INFORMATION SOURCE (unrecogn ized section and content) DATE CREATED AUTHOR 12/01/[address] [facility] DATE CREATED AUTHOR AUTHOR'S ORGANIZ ATION 01/26/2025 [facility] FOR RECORDS PERTAINING TO PATIENTS WHO ARE OR HAVE BEEN ENROLLED IN A CHEMICAL DEPENDENCY/SUBSTANCEABUSE PROGRAM, SOME INFORMATION MAY BE OMITTED. This clinical summary was aggregated from multiple sources. Caution should be exercised in using it in the provision of clinical care. This summary normalizes information from multiple sources, and as a consequence, information in this document may materially change the coding, format and clinical context of patient data. In addition, data may be omitted in some cases. CLINICAL DECISIONS SHOULD BE BASED ON THE PRIMARY CLINICAL RECORDS. [employer] provides no warranty or guarantee of the accuracy or completeness of information in this document.
[2025-02-26 09:57] LABS: Hematocrit 42.6 % (37-47); Hemoglobin 14.5 g/dL (12.0-15.0); Mean Corp Hgb Conc 34.0 g/dL (32-36); Mean Corpuscular Volume 93.6 fL (81-99); Mean Platelet Vol. 9.6 fl (6.2-12.0); Platelet Count 283 K/mm3 (150-450); RBC Distribution Width CV 12.2 % (11.6-14.6); RBC Distribution Width SD 42.5 fl (35.1-43.9); Red Blood Count 4.55 M/mm3 (4.2-5.4); White Blood Count 6.0 K/mm3 (4.4-11.0)
[2025-02-26 10:35] LABS: AST(SGOT) 16 U/L (<=31); Alanine Aminotransfer ALT/SGPT 11 U/L (<=34); Albumin, Serum 4.3 g/dL (3.5-5.0); Alkaline Phosphatase 57 U/L (35-104); Anion Gap 10 (5-15); BUN 10 mg/dL (4-19); BUN/Creat Ratio 13.2 RATIO (10-20); Calcium,Total 9.0 mg/dL (7.6-11.0); Carbon Dioxide 23.7 mmol/L (21.0-32.0); Chloride 106 mmol/L (98-108); Globulin 2.7 g/dL (2.2-4.2); Glucose 78 mg/dL (70-99); Magnesium 2.4 mg/dL (1.5-2.2); Potassium 3.8 mmol/L (3.3-5.1); Vitamin B12 400 pg/mL (180-914)
[2025-02-28 15:07] LABS: Vitamin D 1,25-Dihydroxy 56.1 pg/mL (24.8-81.5)
[2025-03-01 11:08] LABS: Folate, Hemolysate Test 366.0 ng/mL (Not Estab.); Folate, RBC (Hct) Test 43.7 % (34.0-46.6); Folates, RBC Test 838 ng/mL (>498); VITAMIN B6 11.5 ug/L (3.4-65.2); Vitamin B1, Thiamine 136.7 nmol/L (66.5-200.0)
== END | disposition home or self-care (01) ==
LOC: MTLAB 07:18
PROVIDERS: PCP Family Medicine; Referring Provider Psychiatry & Neurology Neurology; Visit Provider Psychiatry & Neurology Neurology
DX: G43.909 Migraine, unspecified, not intractable, without status migrainosus (principal); H81.90 Unspecified disorder of vestibular function, unspecified ear; G25.0 Essential tremor
CPT/HCPCS: 36415; 80053; 82607; 82652; 82747; 83735; 84207; 84425; 84443; 85014; 85027